=== PATIENT | male | born 1940 | race American Indian/Alaskan Native ===

== ENCOUNTER 2016-12-25 12:38 | Inpatient (IN) | payer MEDICARE ==
--- NOTE | 2016-12-25 13:47 | Emergency Department Report ---
Entered by RYAN CHARLES, acting as scribe for LOLA NASH PA. Chief Complaint: Skin/Abscess/Foreign Body Stated Complaint: FACIAL SWELLING Time Seen by Provider: 12/25/16 13:35 - HPI History of Present Illness: 76 y/o male presents c/o leg and facial swelling that has been going out for about a week. Pt denies chest pain or abd pain. He notes he has been seen here before for similar symptoms. Pt also notes he has not been following up with his IM doctor or taking his medication because he is out of it. - ROS Review of Systems: as noted in HPI - Exam Vital Signs: Vital Signs 12/25/16 13:21 Temperature 97.4 F L Pulse Rate 60 Respiratory 18 Rate Blood Pressure 106/71 O2 Sat by Pulse 100 Oximetry Physical Exam: General: 76 y/o male in no acute distress. CV: Regular rate and rhythm. Lungs: Clear to auscultation bilaterally. Abdomen: No tenderness to palpation. No guarding or rebound tenderness. MSE screening note: Focused history and physical exam performed. Due to findings the following was ordered: ED Disposition for MSE Condition: Stable This documentation as recorded by the scribe,RYAN CHARLES,accurately reflects the service I personally performed and the decisions made by ,LOLA NASH PA.
[2016-12-25 14:19] LABS: Basophils % (Auto) 0.3 % (0.0-1.8); Eosinophils % (Auto) 1.4 % (0.0-4.3); Hematocrit 30.6 % (35.5-45.6); Hemoglobin 9.9 gm/dl (11.8-15.2); Mean Corpuscular HGB Conc 32 % (32-34); Mean Corpuscular Hemoglobin 29 pg (28-32); Mean Corpuscular Volume 89 fl (84-94); Platelet Count 129 K/mm3 (140-440); Red Blood Count 3.46 M/mm3 (3.65-5.03); Red Cell Distribution Width 16.7 % (13.2-15.2); White Blood Count 4.7 K/mm3 (4.5-11.0)
[2016-12-25 14:29] LABS: BUN/Creatinine Ratio 12.63; Calcium 8.9 mg/dL (8.4-10.2); Chloride 109.1 mmol/L (98-107); Potassium 4.5 mmol/L (3.6-5.0)
[2016-12-25 14:30] LABS: INR 1.32 (0.87-1.13)
[2016-12-25 14:31] LABS: Partial Thromboplastin Time 34.7 Sec. (24.2-36.6)
--- NOTE | 2016-12-25 19:54 | Emergency Department Report ---
HPI - General Chief Complaint: Skin/Abscess/Foreign Body Time Seen by Provider: 12/25/16 13:35 - HPI HPI: This is a 76-year-old Afro-[place]aur[place] male presents to the emergency department with his daughter with complaint of swelling "everywhere." The patient specifically has been having some left-sided facial swelling as well as swelling to the lower extremities. Patient says that he has a history of this has been [facility] before for this and they "kept him in the hospital." His primary care doctor is Dr. samantha Rebolledo. He has a past medical history of CHF, CVA with left-sided weakness, non-insulin diabetes, GERD, MA, hypertension , high cholesterol. No recent travel. No sick contacts at home. He lives with his daughter at home and they have home nursing care 7 days a week. ED Past Medical Hx - Past Medical History Previous Medical History?: Yes Hx Hypertension: Yes Hx CVA: Yes (L sided weakness) Hx Heart Attack/AMI: Yes Hx Congestive Heart Failure: Yes Hx Diabetes: Yes Hx GERD: Yes Hx Renal Disease: Yes Hx HIV: No Additional medical history: high cholesterol - Surgical History Past Surgical History?: Yes Hx Pacemaker: Yes (Has L pacemaker.) - Social History Smoking Status: Former Smoker Substance Use Type: None - Medications Home Medications: Home Medications Medication Instructions Recorded Confirmed Last Taken Type Omeprazole [PriLOSEC] 20 mg PO DAILY 07/12/14 12/25/16 Unknown History Saxagliptin HCl [Onglyza] 5 mg PO DAILY 07/12/14 12/25/16 Unknown History Acetaminophen [Acetaminophen TAB] 650 mg PO Q4H PRN #30 tablet 07/22/16 Unknown Rx Aspirin [Adult Low Dose Aspirin EC] 81 mg PO DAILY #30 tablet. 07/22/16 Unknown Rx Gabapentin [Neurontin] 300 mg PO BID #30 07/22/16 12/25/16 Unknown Rx Bumetanide 2 mg PO DAILY 12/25/16 12/25/16 Unknown History ED Review of Systems ROS: Stated complaint: FACIAL SWELLING Other details as noted in HPI Comment: All other systems reviewed and negative Constitutional: denies: chills, fever Eyes: denies: eye pain, eye discharge, vision change ENT: denies: ear pain, throat pain Respiratory: shortness of breath. denies: cough Cardiovascular: edema. denies: chest pain Gastrointestinal: denies: abdominal pain, nausea, diarrhea Genitourinary: denies: urgency, dysuria Musculoskeletal: denies: back pain, joint swelling, arthralgia Skin: denies: rash, lesions Neurological: denies: headache, weakness, paresthesias Physical Exam - Physical Exam Vital Signs: Vital Signs 12/25/16 04 13:21 17:31 Temperature 97.4 F L 97.8 F Pulse Rate 60 75 Respiratory 18 Rate Blood Pressure 106/71 Blood Pressure 102/67 [Left] O2 Sat by Pulse 100 98 Oximetry Physical Exam: GENERAL: The patient is well-developed well-nourished. HEENT: Normocephalic. Atraumatic. Extraocular motions are intact. Patient has moist mucous membranes. Pupils equal reactive to light bilaterally. NECK: Supple. Trachea is midline. CHEST/LUNGS: Coarse breath sounds at the chest. There is tachypnea but no accessory muscle use. There is no respiratory distress noted. HEART/CARDIOVASCULAR: Regular. There is no tachycardia. There is no gallop rub or murmur. ABDOMEN: Abdomen is soft, nontender. Patient has normal bowel sounds. There is no abdominal distention. SKIN: Patient has 1-2+ pitting edema of the bilateral lower extremities. There is some swelling to the left side of the patient's face. No skin color change, warmth, weeping, bleeding or drainage. NEURO: The patient is awake, alert, and oriented. The patient is cooperative. Chronic left-sided weakness. The patient has normal speech. MUSCULOSKELETAL: There is no tenderness or deformity. Radial pulse +2 over 4 bilaterally. There is no evidence of acute injury. ED Course Vital Signs 12/25/16 12/25/16 13:21 17:31 Temperature 97.4 F L 97.8 F Pulse Rate 60 75 Respiratory 18 Rate Blood Pressure 106/71 Blood Pressure 102/67 [Left] O2 Sat by Pulse 100 98 Oximetry ED Medical Decision Making - Lab Data Result diagrams: 12/25/16 13:51 12/25/16 13:51 - EKG Data -: EKG Interpreted by Ms EKG shows normal: axis, intervals, QRS complexes (low-voltage QRS, Q waves to the septal and inferior leads), ST-T waves Rate: normal - EKG Data When compared to previous EKG there are: previous EKG unavailable Interpretation: other (electronic atrial pacemaker, left axis deviation, low voltage QRS, Q waves to the inferior and anterior leads) - Radiology Data Radiology results: image reviewed interpreted by me: Chest x-ray shows mild to moderate cardiomegaly. There is some pulmonary vascular congestion. There is a radiopaque circular lesion to the right lower chest that appears consistent with previous imaging. - Medical Decision Making 76-year-old male presents with complaint of some swelling to the lower extremities and the face or as he says "everywhere." Patient has a BNP of greater than 17,000. Chest x-ray shows some vascular congestion. This all appears consistent with CHF. Given some IV Lasix and will be admitted to hospital for further evaluation and treatment. Accepted for admission by the hospitalist, Dr. Pickens. - Differential Diagnosis CHF, venous stasis, cellulitis Critical Care Time: No Critical care attestation.: If time is entered above; I have spent that time in minutes in the direct care of this critically ill patient, excluding procedure time. ED Disposition Clinical Impression: Pulmonary edema cardiac cause, Renal insufficiency Dyspnea Qualifiers: Dyspnea type: shortness of breath Qualified Code(s): R06.02 - Shortness of breath Anemia Qualifiers: Anemia type: unspecified type Qualified Code(s): D64.9 - Anemia, unspecified Disposition: OP ADMITTED IP TO THIS HOSP Is pt being admited?: Yes Condition: Stable
[2016-12-25] MEDS ORDERED: LASIX IV ONE (20:22)
[2016-12-25] MEDS ORDERED: DULCOLAX PR PRN (20:33)
[2016-12-25] MEDS ORDERED: MILK OF MAGNESIA PO PRN (20:33)
[2016-12-25] MEDS ORDERED: ZOFRAN IV PRN (20:33)
[2016-12-25] MEDS ORDERED: TYLENOL PO PRN ×2 (20:33→20:35)
--- NOTE | 2016-12-25 20:38 | History and Physical Report ---
History of Present Illness Chief complaint: I feel swollen all over History of present illness: 76 YO Male with HTN, CHF Systolic Dysfunction (EF 10%), SC, DM, GERD, CKD, HLD presents to ED for evaluation. Pt states that he feels swollen all over. Pt states that he has been experiencing symptoms for the past week, with worsening symptoms the past 24 hours. Pt denies fever, chills, CP, Palpitations, NVD, BRBPR, hemoptysis, syncope, prolonged travel/immobility, individual/family history of DVT/PE, productive cough, or recent ill contacts. Pt acknowledges orthopnea, PND. Past History Past Medical History: acute SC, diabetes, GERD, heart failure, hypertension, hyperlipidemia, stroke Past Surgical History: Other (pacemaker placement) Social history: , lives with family. denies: smoking, alcohol abuse, prescription drug abuse Family history: diabetes, hypertension Medications and Allergies Allergies Allergy/AdvReac Type Severity Reaction Status Date / Time No Known Allergies Allergy Unverified 07/12/14 15:48 Home Medications Medication Instructions Recorded Confirmed Last Taken Type Omeprazole [PriLOSEC] 20 mg PO DAILY 07/12/14 12/25/16 Unknown History Saxagliptin HCl [Onglyza] 5 mg PO DAILY 07/12/14 12/25/16 Unknown History Acetaminophen [Acetaminophen TAB] 650 mg PO Q4H PRN #30 tablet 07/22/16 Unknown Rx Aspirin [Adult Low Dose Aspirin EC] 81 mg PO DAILY #30 tablet. 07/22/16 Unknown Rx Gabapentin [Neurontin] 300 mg PO BID #30 07/22/16 12/25/16 Unknown Rx Bumetanide 2 mg PO DAILY 12/25/16 12/25/16 Unknown History Active Meds: Active Medications Acetaminophen (Tylenol) 650 mg PO Q4H PRN PRN Reason: Pain MILD(1-3)/Fever >100.5/PICKERING Acetaminophen (Tylenol) 650 mg PO Q4H PRN PRN Reason: Pain MILD(1-3)/Fever >100.5/PICKERING Albuterol/Ipratropium (Duoneb 0.5 Mg-3 Mg/3 Ml Soln) 1 ampul IH Q6HRT CESILIA Aspirin (Halfprin Ec) 81 mg PO DAILY CESILIA Bisacodyl (Dulcolax) 10 mg IN QDAY PRN PRN Reason: Constipation unrelieved by MOM Carvedilol (Coreg) 3.125 mg PO BID CESILIA Clopidogrel Bisulfate (Plavix) 75 mg PO QDAY CESILIA Furosemide (Lasix) 20 mg IV BID@0600,1800 CES[place] Gabapentin (Neurontin) 300 mg PO BID CESILIA Magnesium Hydroxide (Milk Of Magnesia) 30 ml PO Q4H PRN PRN Reason: Constipation Miscellaneous Medication (Omeprazole [Prilosec]) 20 mg PO DAILY CESILIA Miscellaneous Medication (Rosuvastatin) 40 mg PO QHS CESILIA Ondansetron HCl (Zofran) 4 mg IV Q8H PRN PRN Reason: N/V unrelieved by Reglan Review of Systems All systems: negative Constitutional: other (swelling) Exam - Constitutional Vitals: Temp Pulse Resp BP Pulse Ox 97.8 F 75 18 102/67 98 12/25/16 17:31 12/25/16 17:31 12/25/16 13:21 12/25/16 17:31 12/25/16 17:31 General appearance: Present: mild distress - EENT Eyes: Present: PERRL ENT: hearing intact, clear oral mucosa - Neck Neck: Present: supple, normal ROM - Respiratory Respiratory effort: normal Respiratory: bilateral: diminished - Cardiovascular Heart Sounds: Present: S1 & S2. Absent: rub, click - Extremities Extremities: pulses symmetrical, No edema Extremity abnormal: edema Peripheral Pulses: within normal limits - Abdominal General gastrointestinal: Present: soft, non-tender, non-distended, normal bowel sounds Male genitourinary: Present: normal - Integumentary Integumentary: Present: clear, warm, dry - Musculoskeletal Musculoskeletal: strength equal bilaterally, left sided weakness - Psychiatric Psychiatric: appropriate mood/affect, intact judgment & insight - Neurologic Neurologic: CNII-XII intact, moves all extremities Results - Labs CBC & Chem 7: 12/25/16 13:51 12/25/16 13:51 Labs: Abnormal lab results 12/25/16 12/25/16 12/25/16 Range/Units 13:51 13:51 13:51 RBC 3.46 L (3.65-5.03) M/mm3 Hgb 9.9 L (11.8-15.2) gm/dl Hct 30.6 L (35.5-45.6) % RDW 16.7 H (13.2-15.2) % Plt Count 129 L (140-440) K/mm3 [place] % (Auto) 14.8 H (0.0-7.3) % Lymph # 0.7 L (1.2-5.4) K/mm3 PT (12.2-14.9) Sec. INR (0.87-1.13) Chloride 109.1 H (98-107) mmol/L Carbon Dioxide 19 L (22-30) mmol/L BUN 24 H (9-20) mg/dL Creatinine 1.9 H (0.8-1.5) mg/dL Glucose 108 H (75-100) mg/dL NT-Pro-B Natriuret Pep 82643 H (0-900) pg/mL 12/25/16 Range/Units 13:51 RBC (3.65-5.03) M/mm3 Hgb (11.8-15.2) gm/dl Hct (35.5-45.6) % RDW (13.2-15.2) % Plt Count (140-440) K/mm3 [place] % (Auto) (0.0-7.3) % Lymph # (1.2-5.4) K/mm3 PT 16.3 H (12.2-14.9) Sec. INR 1.32 H (0.87-1.13) Chloride (98-107) mmol/L Carbon Dioxide (22-30) mmol/L BUN (9-20) mg/dL Creatinine (0.8-1.5) mg/dL Glucose (75-100) mg/dL NT-Pro-B Natriuret Pep (0-900) pg/mL Assessment and Plan - Patient Problems (1) Congestive heart failure (CHF) Current Visit: No Status: Acute Qualifiers: Congestive heart failure type: systolic Congestive heart failure chronicity : C Plan to address problem: End Stage CHF: CHF protocol: Fluid restriction, daily weight, diuresis, monitor uop q shift, resume home medication, 2 gram sodium diet, (2) Hyperchloremic metabolic acidosis Current Visit: Yes Status: Acute Plan to address problem: Treat chf, repeat bmp in am (3) ARF (acute renal failure) Current Visit: Yes Status: Acute Qualifiers: Acute renal failure type: A Plan to address problem: Free water fluid intake, monitor uop q shift, (4) Metabolic syndrome Current Visit: Yes Status: Acute Plan to address problem: Pt counseled, continue current therapy (5) DVT prophylaxis Current Visit: No Status: Acute
[2016-12-25] MEDS ORDERED: NON-FORMULARY (Rosuvastatin 40 MG) PO SCH (22:00)
[2016-12-25] MEDS ORDERED: NEURONTIN ONE (22:59)
[2016-12-25] MEDS ORDERED: COREG ONE (22:59)
[2016-12-25] MEDS: COREG PO SCH (23:07)
[2016-12-25] MEDS: NEURONTIN PO SCH (23:07)
[2016-12-26 00:47] LABS: Bacteria,Urine 2+ /HPF (Negative); Bilirubin,Urine NEG (Negative); Blood,Urine SM (Negative); Ketones,Urine NEG (Negative); Leukocyte Esterase,Urine MOD (Negative); Mucus,Urine FEW /HPF; Nitrite,Urine NEG (Negative); Protein,Urine <15 mg/dL mg/dL (Negative); Urobilinogen,Urine < 2.0 mg/dL (<2.0)
[2016-12-26] MEDS: DUONEB 0.5 MG-3 MG/3 ML SOLN IH SCH ×4 (01:37→20:28)
[2016-12-26] MEDS: LASIX IV SCH ×2 (06:21→18:01)
[2016-12-26] MEDS ORDERED: NON-FORMULARY (Omeprazole [Prilosec] 20 MG) PO SCH (10:00)
--- NOTE | 2016-12-26 10:03 | XRay Report ---
AP CHEST :12/25/16 19:42 CLINICAL: Shortness of breath. COMPARISON:07/15/16 FINDINGS: Stable cardiomegaly with pacer leads in heart. Mild central vascular congestion. The pulmonary vessels are more distinct than on the prior exam. Widening in the right pleural space and blunting right costophrenic angle unchanged compared to the previous exam. A soft tissue opacity in the right midlung is slightly less prominent than on the prior exam and may be a pseudo-tumor produced by fluid in the minor fissure. The a left lung is clear. IMPRESSION: Cardiomegaly and pulmonary venous hypertension. No pulmonary edema.Chronic pleural effusion and pseudotumor versus mass in the right midlung. Consider CT Chest.
[2016-12-26] MEDS: PLAVIX PO SCH (10:55)
[2016-12-26] MEDS: PROTONIX PO SCH (10:55)
[2016-12-26] MEDS: NEURONTIN PO SCH ×2 (10:55→22:03)
[2016-12-26] MEDS: LEVAQUIN 500MG/100ML 500 MG/100 ML BAG IV SCH (10:55)
[2016-12-26] MEDS: COREG PO SCH ×2 (10:55→22:00)
[2016-12-26] MEDS: HALFPRIN EC PO SCH (10:55)
--- NOTE | 2016-12-26 15:51 | Progress Note ---
Hospitalist Physical - Constitutional Vitals: Temp Pulse Resp BP Pulse Ox 98.3 F 74 18 124/78 99 12/26/16 11:34 12/26/16 14:12 12/26/16 14:12 12/26/16 11:34 12/26/16 11:34 General appearance: Present: mild distress Results - Labs CBC & Chem 7: 12/25/16 13:51 12/25/16 13:51 Labs: Laboratory Last Values WBC 4.7 K/mm3 (4.5-11.0) 12/25/16 13:51 RBC 3.46 M/mm3 (3.65-5.03) L 12/25/16 13:51 Hgb 9.9 gm/dl (11.8-15.2) L 12/25/16 13:51 Hct 30.6 % (35.5-45.6) L 12/25/16 13:51 MCV 89 fl (84-94) 12/25/16 13:51 MCH 29 pg (28-32) 12/25/16 13:51 MCHC 32 % (32-34) 12/25/16 13:51 RDW 16.7 % (13.2-15.2) H 12/25/16 13:51 Plt Count 129 K/mm3 (140-440) L 12/25/16 13:51 Lymph % (Auto) 15.7 % (13.4-35.0) 12/25/16 13:51 [place] % (Auto) 14.8 % (0.0-7.3) H 12/25/16 13:51 Eos % (Auto) 1.4 % (0.0-4.3) 12/25/16 13:51 Baso % (Auto) 0.3 % (0.0-1.8) 12/25/16 13:51 Lymph # 0.7 K/mm3 (1.2-5.4) L 12/25/16 13:51 [place] # 0.7 K/mm3 (0.0-0.8) 12/25/16 13:51 Eos # 0.1 K/mm3 (0.0-0.4) 12/25/16 13:51 Baso # 0.0 K/mm3 (0.0-0.1) 12/25/16 13:51 Seg Neutrophils % 67.8 % (40.0-70.0) 12/25/16 13:51 Seg Neutrophils # 3.2 K/mm3 (1.8-7.7) 12/25/16 13:51 PT 16.3 Sec. (12.2-14.9) H 12/25/16 13:51 INR 1.32 (0.87-1.13) H 12/25/16 13:51 APTT 34.7 Sec. (24.2-36.6) 12/25/16 13:51 Sodium 144 mmol/L (137-145) 12/25/16 13:51 Potassium 4.5 mmol/L (3.6-5.0) 12/25/16 13:51 Chloride 109.1 mmol/L (98-107) H 12/25/16 13:51 Carbon Dioxide 19 mmol/L (22-30) L 12/25/16 13:51 Anion Gap 20 mmol/L 12/25/16 13:51 BUN 24 mg/dL (9-20) H 12/25/16 13:51 Creatinine 1.9 mg/dL (0.8-1.5) H 12/25/16 13:51 Estimated GFR 42 ml/min 12/25/16 13:51 BUN/Creatinine Ratio 12.63 % 12/25/16 13:51 Glucose 108 mg/dL (75-100) H 12/25/16 13:51 Calcium 8.9 mg/dL (8.4-10.2) 12/25/16 13:51 NT-Pro-B Natriuret Pep 17958 pg/mL (0-900) H 12/25/16 13:51 Urine Color Yellow (Yellow) 12/26/16 00:01 Urine Turbidity Clear (Clear) 12/26/16 00:01 Urine pH 5.0 (5.0-7.0) 12/26/16 00:01 Ur Specific [place] 1.010 (1.003-1.030) 12/26/16 00:01 Urine Protein <15 mg/dl mg/dL (Negative) 12/26/16 00:01 Urine Glucose (UA) Neg mg/dL (Negative) 12/26/16 00:01 Urine Ketones Neg mg/dL (Negative) 12/26/16 00:01 Urine Blood Sm (Negative) 12/26/16 00:01 Urine Nitrite Neg (Negative) 12/26/16 00:01 Urine Bilirubin Neg (Negative) 12/26/16 00:01 Urine Urobilinogen < 2.0 mg/dL (<2.0) 12/26/16 00:01 Ur Leukocyte Esterase Mod (Negative) 12/26/16 00:01 Urine WBC (Auto) 17.0 /HPF (0.0-6.0) H 12/26/16 00:01 Urine RBC (Auto) 2.0 /HPF (0.0-6.0) 12/26/16 00:01 Urine Bacteria (Auto) 2+ /HPF (Negative) 12/26/16 00:01 Urine Mucus Few /HPF 12/26/16 00:01
[2016-12-27] MEDS: LASIX IV SCH (06:10)
[2016-12-27 06:46] LABS: Hematocrit 28.5 % (35.5-45.6); Hemoglobin 9.2 gm/dl (11.8-15.2); Mean Corpuscular HGB Conc 32 % (32-34); Mean Corpuscular Hemoglobin 28 pg (28-32); Mean Corpuscular Volume 88 fl (84-94); Platelet Count 140 K/mm3 (140-440); Red Blood Count 3.24 M/mm3 (3.65-5.03); Red Cell Distribution Width 16.7 % (13.2-15.2); White Blood Count 3.9 K/mm3 (4.5-11.0)
[2016-12-27 07:02] LABS: BUN/Creatinine Ratio 13.8; Calcium 8.8 mg/dL (8.4-10.2); Potassium 4.2 mmol/L (3.6-5.0)
[2016-12-27] MEDS: DUONEB 0.5 MG-3 MG/3 ML SOLN IH SCH ×2 (08:30→14:14)
--- NOTE | 2016-12-27 09:26 | Admit Criteria Form ---
Admission Criteria Documentation: HEART FAILURE Clinical Indications for Admission to Inpatient Care (Place 'X' for any and all applicable criteria): Admission is indicated by ANY ONE of the following(1)(2)(3)(4): [ ]I. Severe electrolyte abnormalities requiring inpatient care(9) [ ]II. Hemodynamic instability [ ]III. Anasarca [ ]IV. Acute cardiac ischemia causing or associated with failure (Also use Angina or Myocardial Infarction as appropriate) [ ]V. Cardiac arrhythmias of immediate concern [ ]. Precipitating cause for acute decompensation (eg, pneumonia, pulmonary embolism) requires inpatient care [X ]VII. Pulmonary edema that is very severe (eg, mechanical ventilation needed , imminent or likely, need for 100% oxygen to keep oxygen saturation above 90%) [X ]VIII. Inpatient admission required rather than observation care (Also use Heart Failure: Observation Care as appropriate) because of ANY ONE of the following: [ ]a) Pulmonary edema that is severe or worsening as indicated by ALL of the following: [ ]i) New need for oxygen therapy to keep oxygen saturation above 90% (or increased FiO2 need from baseline) [ ]ii) Has not improved sufficiently with emergency department or observation care IV diuretics or other heart failure treatments[C] [ ]b) Cognitive impairment that is severe or persistent [ ]c) Increased creatinine (new on laboratory test) with reduction of more than 50% in estimated glomerular filtration rate from baseline. [ ]d) Acute renal insufficiency (progressively (ongoing) rising creatinine (known from past laboratory test) with reduction of more than 25% in estimated glomerular filtration rate from baseline) [ ]e) Acute peripheral ischemia (eg, pulseless, cool, mottled, or cyanotic extremity) [X ]f) Acute renal failure [ ]g) Supplemental O2 or respiratory treatment for >24 hr that are performable only in acute inpatient setting [ ]h) Pulmonary artery catheter monitoring [ ]i) Other condition, treatment or monitoring requiring inpatient admission [ ]IX. Contraindications and/or Inappropriate clinical situations for Observational Care in patients with Heart Failure, when ANY ONE of the following is required: [ ]a) Patient with High risk of cardiac embolism (e.g, patients with previous cardiac embolism, LVEF < 40%, age >75 and patients with prosthetic valve) 18 [ ]b) Patient with Moderate risk including DM patient, CAD and patient aged 65-75 [ ]c) Patient with any change in cardiac biomarker especially troponin should be managed as high risk in an inpatient setting 19 [ ]d) Physician judgement irrespective of ECG and other diagnostic findings 20 [ ]e) Patients with hyponatremia have high risk for mortality and require more extensive care and length of stay 21 [ ]f) Need for large volume diuresis 21 [ ]g) Presence of renal insufficiency or hypotension limiting speed of diuresis 21 [ ]h) Acute cardiac Ischemia in the elderly 21 [ ]i) Patients with a 30 day risk of mortality based on a multidimensional prognostic index (MPI) [J,]21 [X ]X. General contraindications and/or Inappropriate clinical situations for Observational Care in patients with Heart Failure, when ANY ONE of the following is required: [X ]a) Prediction of prolongation of LOS based on ANY ONE of the following may be considered as a contraindication for observational care 2, 3, 4, 5, 6, 7, 8 , 9, 10, 11 [ X]i) Age > 65 yrs. [ ]ii) Patient arriving by ambulance [ ]iii) Patient with high acuity [ ]iv) Patient requiring vital sign monitoring [ ]v) Patient on IV medication [ ]b) Systolic blood pressures 180mmHg 3,12 [ ]c) Patient with altered mental status including delirium and other alteration of consciousness, (3) [ ]d) Patient whose discharge disposition will be to a usp home or rehabilitation home should not be managed in Emergency Department Observation Unit. CMS rule requires 3 days hospital stay before such placement.3,13 [ ]e) Patient with failure to thrive due to broad array of etiologies 3,16,17 [ ]f) Inability to ambulate 3,14 Extended stay beyond goal length of stay may be needed for(1)(3)(21)(25): [ ]a) Cardiac ischemia, confirmed or suspected as precipitant [ ]b) Cardiogenic shock or refractory pulmonary edema [ ]c) Acute kidney injury or renal failure [ ]d) Respiratory failure (eg, need for noninvasive or invasive mechanical ventilation) (23) [ ]e) Concomitant pneumonia or significant electrolyte abnormality (eg, severe hyponatremia) [ ]f) Newly diagnosed (new onset) atrial fibrillation [ ]g) Stage IV chronic kidney disease (estimated glomerular filtration rate of less than 30 mL/min/1.73m2 (0.50 mL/sec/1.73m2), and not previously on chronic dialysis The original [facility] content created by [facility] has been revised. The portions of the content which have been revised are identified through the use of italic text or in bold, and [facility] has neither reviewed nor approved the modified material. All other unmodified content is copyright [facility]. Please see references footnoted in the original [facility] edition 2016 Admission Criteria Met: Yes
--- NOTE | 2016-12-27 09:30 | Discharge Summary ---
Providers - Providers Date of Admission: 12/25/16 20:33 Date of discharge: 12/27/16 Attending physician: KATLIN DURAN Primary care physician: ANGELIQUE CURRY MD Hospitalization Condition: Good Disposition: DISCHARGED TO HOME OR SELFCARE - Discharge Diagnoses (1) Acute on chronic systolic CHF (congestive heart failure) Status: Acute Exam - Constitutional Vitals: Temp Pulse Resp BP Pulse Ox 97.8 F 67 18 108/68 96 12/27/16 06:01 12/27/16 08:47 12/27/16 08:47 12/27/16 06:01 12/27/16 08:34 Plan Activity: advance as tolerated Diet: low fat, low cholesterol, low salt, diabetic Additional Instructions: 1.Follow up with PCP in 1 week. 2.Follow up with cardiology in 1 week Follow up with: PRIMARY CARE, [Primary Care Provider] - 3-5 Days Prescriptions: Rosuvastatin Calcium [Crestor] 40 mg PO QHS #30 tablet
[2016-12-27] MEDS: LEVAQUIN 500MG/100ML 500 MG/100 ML BAG IV SCH (10:42)
[2016-12-27] MEDS: PROTONIX PO SCH (10:43)
[2016-12-27] MEDS: COREG PO SCH (10:44)
[2016-12-27] MEDS: HALFPRIN EC PO SCH (10:44)
[2016-12-27] MEDS: PLAVIX PO SCH (10:44)
[2016-12-27] MEDS: NEURONTIN PO SCH (10:44)
[2016-12-27 19:07] VITALS: BP 100/69
== END 2016-12-27 14:36 | disposition home or self-care (01) | DRG 291 ==
LOC: ED 12:38 → 4A 20:33
PROVIDERS: ADMIT Internal Medicine; ATTEND Internal Medicine
DX: I13.0 Hypertensive heart and chronic kidney disease with heart failure and stage 1 through stage 4 chronic kidney disease, or unspecified chronic kidney disease (principal); I50.23 Acute on chronic systolic (congestive) heart failure; N17.9 Acute kidney failure, unspecified; E87.2 Acidosis; I69.354 Hemiplegia and hemiparesis following cerebral infarction affecting left non-dominant side; E88.81 Metabolic syndrome and other insulin resistance; K21.9 Gastro-esophageal reflux disease without esophagitis; D64.9 Anemia, unspecified; E11.22 Type 2 diabetes mellitus with diabetic chronic kidney disease; N18.9 Chronic kidney disease, unspecified; E78.5 Hyperlipidemia, unspecified; I25.2 Old myocardial infarction; Z82.49 Family history of ischemic heart disease and other diseases of the circulatory system; Z83.3 Family history of diabetes mellitus; Z95.0 Presence of cardiac pacemaker; Z87.891 Personal history of nicotine dependence; Z79.82 Long term (current) use of aspirin
CPT/HCPCS: 36415; 71010; 80048; 81001; 82962; 83880; 85025; 85027; 85610; 85730; 93005; 93010; 94640; 96374; A9270-GY; J1940; J1956

== ENCOUNTER 2019-11-19 11:07 | Inpatient (IN) | payer MEDICARE ==
[2019-11-19] MEDS ORDERED: SODIUM CHLORIDE 0.9% 500 ML 500 ML IV ONE (11:36)
--- NOTE | 2019-11-19 11:41 | Emergency Department Report ---
HPI - General Chief Complaint: Weakness Time Seen by Provider: 11/19/19 11:24 - HPI HPI: 79-year-old -[place] male presents to the emergency department via EMS from his [employer] daycare with a complaint of the patient having a cough, fever, and acting more fatigued than usual. He has a past medical history that includes CVA with left-sided hemiparesis, coronary artery disease with previous IA, diabetes, CHF, hypertension, CKD. The patient is currently AAO x1 and is therefore a poor historian. ED Past Medical Hx - Past Medical History Hx Hypertension: Yes Hx CVA: Yes (L sided weakness) Hx Heart Attack/AMI: Yes Hx Congestive Heart Failure: Yes Hx Diabetes: Yes Hx GERD: Yes Hx Renal Disease: Yes Hx HIV: No Additional medical history: high cholesterol - Surgical History Hx Pacemaker: Yes (Has L pacemaker.) - Social History Smoking Status: Unknown if ever smoked - Medications Home Medications: Home Medications Medication Instructions Recorded Confirmed Last Taken Type Aspirin [Adult Low Dose Aspirin EC] 81 mg PO DAILY #30 tablet. 07/22/16 11/19/19 Unknown Rx Gabapentin 300 mg PO BID #30 07/22/16 11/19/19 Unknown Rx Bumetanide [Bumetanide 2 mg tab] 2 mg PO DAILY 12/25/16 11/19/19 Unknown History Clopidogrel [Plavix] 75 mg PO QDAY tablet 12/27/16 11/19/19 Unknown Rx Rosuvastatin Calcium 20 mg PO DAILY 11/19/19 11/19/19 Unknown History Saxagliptin HCl [Onglyza] 5 mg PO DAILY 11/19/19 11/19/19 Unknown History carvediloL [Coreg] 3.125 mg PO BID 11/19/19 11/19/19 Unknown History ED Review of Systems ROS: Stated complaint: LETHARGIC/COUGH Other details as noted in HPI Comment: Unobtainable due to pts medical conditions Physical Exam - Physical Exam Vital Signs: Vital Signs 11/19/19 11:31 Temperature 100.8 F H Pulse Rate 75 Respiratory 22 Rate Blood Pressure 89/52 O2 Sat by Pulse 93 Oximetry Physical Exam: GENERAL: The patient is well-developed well-nourished. HENT: Normocephalic. Atraumatic. Patient has moist mucous membranes. EYES: Extraocular motions are intact. NECK: Supple. Trachea is midline. CHEST/LUNGS: Clear to auscultation. There is no respiratory distress noted. HEART/CARDIOVASCULAR: Regular. There is no tachycardia. There is no murmur. ABDOMEN: Abdomen is soft, nontender. Patient has normal bowel sounds. There is no abdominal distention. SKIN: Skin is warm and dry. NEURO: Patient is very sleepy but is arousable. Once awake he is AAO x1 to person but not place or time. Patient will respond to some questions and follow some commands. Withdraws from painful stimuli. MUSCULOSKELETAL: There is no tenderness or deformity. There is no evidence of acute injury. ED Course Vital Signs 11/19/19 11:31 Temperature 100.8 F H Pulse Rate 75 Respiratory 22 Rate Blood Pressure 89/52 O2 Sat by Pulse 93 Oximetry - Central Line Placement Right IJ Consent Obtained: verbal consent (From the patient's daughter), written consent Time Out Performed: Yes Patient Placed on Monitor/Pulse Ox: Yes MD Prep: mask, gown, gloves Central Line Prep: Chlorhexidine scrub Local Anesthesia Used: Lidocaine 1% Amount of Anesthesia Used (mls): 2 Ultrasound Used for Placement: Yes Central Line Lumen Inserted: triple Bloods Obtained for Lab: Yes Central Line Position: good blood return, all ports aspirated, flus, sutured in place with nyl Dressing Applied: Tegaderm, sterile gauze/tape Post Procedure X-Ray: tip of catheter in good p Patient Tolerated Procedure: well Complications: none ED Medical Decision Making - Lab Data Result diagrams: 11/19/19 13:47 11/19/19 12:17 - EKG Data -: EKG Interpreted by Me - EKG Data When compared to previous EKG there are: no significant change (02/22/17) Interpretation: other (Atrial paced, left axis deviation, PVCs, Q waves to the inferior, septal and anterior leads, flattening of T waves to the lateral leads) - Radiology Data Radiology results: report reviewed CT BRAIN: 11/19/2019 INDICATION / CLINICAL INFORMATION: MAIN: AMS HX OF CVA LEFT SIDED WEAKNESS. COMPARISON: None available. FINDINGS: BRAIN/INTRACRANIAL STRUCTURES: Unenhanced CT images of the brain were obtained. No previous studies are available here for comparison. There is a large area of encephalomalacia involving the right frontal and parietal lobes, consistent with remote right MCA and MARLENE territory infarct. Underlying diffuse age-related atrophic changes are present. There is no CT evidence of acute ischemic injury, hemorrhage, or mass. There are no abnormal extra-axial fluid collections. Atherosclerotic vascular calcifications are present in the distal internal carotid arteries and vertebral arteries. EXTRACRANIAL STRUCTURES: Unremarkable. IMPRESSION: No evidence of acute abnormality. Extensive chronic ischemic injury. CHEST 1 VIEW INDICATION / CLINICAL INFORMATION: Cough. COMPARISON: 02/23/2017 FINDINGS: SUPPORT DEVICES: Pacemaker appears unchanged HEART / MEDIASTINUM: There is prominence of the cardiac silhouette LUNGS / PLEURA: There is basilar airspace disease on the left. There is mild venous congestion. There is blunting of the costophrenic angles characteristic of small amount of pleural fluid or pleural thickening.. No pneumothorax. ADDITIONAL FINDINGS: No significant additional findings. - Medical Decision Making This patient was sent in from his adult daycare with the complaint of some co ughing, increased fatigue or lethargy and the patient presented with a low-grade fever and some hypotension. Chest x-ray showed some basilar airspace disease. Urinalysis shows a urinary tract infection. The patient was a code sepsis and was empirically started on Rocephin. He received a total of about 3 L of IV fluid resuscitation but still continues to have some hypotension. For this reason a central line catheter was placed so the patient could be started on pressors. The risks and rewards and the procedure were discussed with the patient's granddaughter, who is at bedside, as well as the patient's daughter, over the phone, and I was given both written and verbal permission. Patient's labs showed some renal insufficiency, initial lactic acidosis. Blood and urine cultures have been sent. The patient will be admitted to the hospital for further evaluation and was accepted for admission by the hospitalist, Dr. Pickens. - Differential Diagnosis Pneumonia, UTI, sepsis, septic shock Critical Care Time: Yes Critical care time in (mins) excluding proc time.: 35 Critical care attestation.: If time is entered above; I have spent that time in minutes in the direct care of this critically ill patient, excluding procedure time. Due to the immediate potential for life-threatening deterioration due to underlying pulmonary and cardiovascular conditions, I spent 35 minutes of critical care time with the patient. Critical care time includes the patient's initial evaluation, multiple re-evaluations, ordering and interpretation of labs and imaging, discussion with the patient's family, IV fluid resuscitation. This does not include the time spent doing the central line procedure. Critical Care Time: 35 minutes ED Disposition Clinical Impression: Renal insufficiency Sepsis Qualifiers: Sepsis type: sepsis due to unspecified organism Sepsis acute organ dysfunction status: unspecified Qualified Code(s): A41.9 - Sepsis, unspecified organism UTI (urinary tract infection) Qualifiers: Urinary tract infection type: acute cystitis Hematuria presence: without hematuria Qualified Code(s): N30.00 - Acute cystitis without hematuria Pneumonia Qualifiers: Pneumonia type: due to unspecified organism Laterality: bilateral Lung location: lower lobe of lung Qualified Code(s): J18.9 - Pneumonia, unspecified organism Hypotension Qualifiers: Hypotension type: unspecified hypotension type Qualified Code(s): I95.9 - Hypotension, unspecified Disposition: 09 OP ADMIT IP TO THIS HOSP Is pt being admited?: Yes Condition: Serious Time of Disposition: 16:52
[2019-11-19] MEDS ORDERED: cefTRIAXone/NS 1 GM/50 ML 1 GM/50 ML BAG IV ONE (12:03)
[2019-11-19] MEDS ORDERED: ACETAMINOPHEN 325 MG TAB PO ONE (12:03)
--- NOTE | 2019-11-19 12:57 | XRay Report ---
CHEST 1 VIEW INDICATION / CLINICAL INFORMATION: Cough. COMPARISON: 02/23/2017 FINDINGS: SUPPORT DEVICES: Pacemaker appears unchanged HEART / MEDIASTINUM: There is prominence of the cardiac silhouette LUNGS / PLEURA: There is basilar airspace disease on the left. There is mild venous congestion. There is blunting of the costophrenic angles characteristic of small amount of pleural fluid or pleural th ickening.. No pneumothorax. ADDITIONAL FINDINGS: No significant additional findings. Signer Name: Marc Salmon MD Signed: 11/19/2019 12:53 PM Workstation Name: [id number]
--- NOTE | 2019-11-19 13:04 | Cat Scan Report ---
CT BRAIN: 11/19/2019 INDICATION / CLINICAL INFORMATION: MAIN: AMS HX OF CVA LEFT SIDED WEAKNESS. COMPARISON: None available. FINDINGS: BRAIN/INTRACRANIAL STRUCTURES: Unenhanced CT images of the brain were obtained. No previous studies a re available here for comparison. There is a large area of encephalomalacia involving the right frontal and parietal lobes, consistent with remote right MCA and MARLENE territory infarct. Underlying diffuse age-related atrophic changes are present. There is no CT evidence of acute ischemic injury, hemorrhage, or mass. There are no abnormal extra-ax ial fluid collections. Atherosclerotic vascular calcifications are present in the distal internal carotid arteries and verte bral arteries. EXTRACRANIAL STRUCTURES: Unremarkable. IMPRESSION: No evidence of acute abnormality. Extensive chronic ischemic injury. All CT scans at this location are performed using dose reduction to ALARA by means of automated expos ure control. Signer Name: Jimmy Mishra MD Signed: 11/19/2019 1:00 PM Workstation Name: [id number]
[2019-11-19 13:08] LABS: Calcium 8.9 mg/dL (8.4-10.2)
[2019-11-19] MEDS ORDERED: SODIUM CHLORIDE 0.9% 1000 ML 1,000 ML IV ONE ×3 (13:13→15:18)
[2019-11-19 14:00] LABS: Bacteria,Urine 1+ /HPF (Negative); Bilirubin,Urine NEG (Negative); Blood,Urine MOD (Negative); Color,Urine Yellow (Yellow); Urobilinogen,Urine < 2.0 mg/dL (<2.0)
[2019-11-19 14:01] LABS: WBC,Urine > 182.0 /HPF (0.0-6.0)
[2019-11-19 14:21] LABS: Hematocrit 27.8 % (35.5-45.6); Hemoglobin 9.2 gm/dl (11.8-15.2); Mean Corpuscular HGB Conc 33 % (32-34); Mean Corpuscular Volume 84 fl (84-94); Platelet Count 144 K/mm3 (140-440); Red Blood Count 3.29 M/mm3 (3.65-5.03); Red Cell Distribution Width 15.9 % (13.2-15.2)
--- NOTE | 2019-11-19 15:23 | History and Physical Report ---
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 Patient is lethargic and unable to provide history at time of my evaluation. Patient history taken from EMS, ED staff, as well as adult daycare staff. As per staff the patient was found to have new onset weakness, and decreased interaction with staff, fever, decreased exercise tolerance and cough today. EMS notified and upon arrival the patient was found to be in distress and subsequently transported to [facility] for further evaluation and care. Patient seen and evaluated in the emergency department. Lab and imaging studies reviewed. Patient found to have severe sepsis with hypotension. Patient blood pressure found to be 75/48 at the time of my exam. Patient because of sepsis suspected secondary to be urinary tract infection. Patient also found to have acute kidney injury, toxic encephalopathy, and metabolic acidosis. Patient admitted to ICU and initiated on sepsis protocol. Patient found to have poor prognosis. Advanced care planning conducted in ED. No further history obtainable. All listed medication reconciled at time of admission. Past History Past Medical History: CAD, diabetes, GERD, heart failure, stroke Past Surgical History: Other (Pacemaker placement) Social history: . denies: smoking, alcohol abuse, prescription drug abuse Family history: diabetes, hypertension Medications and Allergies Allergies Allergy/AdvReac Type Severity Reaction Status Date / Time No Known Allergies Allergy Unverified 07/12/14 15:48 Home Medications Medication Instructions Recorded Confirmed Last Taken Type Aspirin [Adult Low Dose Aspirin EC] 81 mg PO DAILY #30 tablet. 07/22/16 11/19/19 Unknown Rx Gabapentin 300 mg PO BID #30 07/22/16 11/19/19 Unknown Rx Bumetanide [Bumetanide 2 mg tab] 2 mg PO DAILY 12/25/16 11/19/19 Unknown History Clopidogrel [Plavix] 75 mg PO QDAY tablet 12/27/16 11/19/19 Unknown Rx Rosuvastatin Calcium 20 mg PO DAILY 11/19/19 11/19/19 Unknown History Saxagliptin HCl [Onglyza] 5 mg PO DAILY 11/19/19 11/19/19 Unknown History carvediloL [Coreg] 3.125 mg PO BID 11/19/19 11/19/19 Unknown History Active Meds: Active Medications Sodium Chloride (Nacl 0.9% 1000 Ml) 1,000 mls @ 999 mls/hr IV BOLUS ONE Stop: 11/19/19 16:18 Last Admin: 11/19/19 15:19 Dose: 999 mls/hr Documented by: Review of Systems ROS unobtainable: due to mental status Exam - Constitutional Vitals: Temp Pulse Resp BP Pulse Ox 98.7 F 74 20 87/54 100 11/19/19 15:16 11/19/19 15:16 11/19/19 15:16 11/19/19 15:16 11/19/19 15:16 General appearance: Present: severe distress - EENT Eyes: Present: miosis ENT: hearing intact, clear oral mucosa - Neck Neck: Present: supple, normal ROM - Respiratory Respiratory effort: normal Respiratory: bilateral: CTA - Cardiovascular Rhythm: other (Tachycardia, hypotension) Heart Sounds: Present: S1 & S2. Absent: rub, click - Extremities Extremities: pulses symmetrical, No edema Peripheral Pulses: abnormal (Capillary refill greater than 3.5 seconds) - Abdominal General gastrointestinal: Present: soft, non-tender, non-distended, normal bowel sounds Male genitourinary: Present: normal - Integumentary Integumentary: Present: clear, dry, clammy, decreased turgor - Musculoskeletal Musculoskeletal: generalized weakness - Psychiatric Psychiatric: no appropriate mood/affect, no intact judgment & insight, no memory intact - Neurologic Neurologic: CNII-XII intact, focal deficits, moves all extremities, no gait normal Results - Labs CBC & Chem 7: 11/19/19 13:47 11/19/19 12:17 Labs: Abnormal lab results 11/19/19 11/19/19 11/19/19 Range/Units 12:17 12:17 12:17 RBC (3.65-5.03) M/mm3 Hgb (11.8-15.2) gm/dl Hct (35.5-45.6) % RDW (13.2-15.2) % Carbon Dioxide 20 L (22-30) mmol/L BUN 48 H (9-20) mg/dL Creatinine 2.7 H (0.8-1.5) mg/dL Glucose 176 H (75-100) mg/dL Lactic Acid 3.30 H* (0.7-2.0) mmol/L Ammonia 63.0 H (25-60) umol/L Urine WBC (Auto) (0.0-6.0) /HPF 11/19/19 11/19/19 Range/Units 13:30 13:47 RBC 3.29 L (3.65-5.03) M/mm3 Hgb 9.2 L (11.8-15.2) gm/dl Hct 27.8 L (35.5-45.6) % RDW 15.9 H (13.2-15.2) % Carbon Dioxide (22-30) mmol/L BUN (9-20) mg/dL Creatinine (0.8-1.5) mg/dL Glucose (75-100) mg/dL Lactic Acid (0.7-2.0) mmol/L Ammonia (25-60) umol/L Urine WBC (Auto) > 182.0 H (0.0-6.0) /HPF Assessment and Plan - Patient Problems (1) Sepsis Current Visit: Yes Status: Acute Qualifiers: Sepsis type: sepsis due to unspecified organism Sepsis acute organ dysfun ction status: unspecified Qualified Code(s): A41.9 - Sepsis, unspecified organism Plan to address problem: Severe sepsis: Admit to ICU, IV fluid resuscitation therapy, CBC, CMP, chest x- ray, urinalysis, IV antibiotic therapy, monitor urine output every shift, serial lactic acid level, blood culture, maintain mean arterial pressure above 65, IV pressor support as clinically indicated, critical care team consult placed in ED, (2) Acute kidney injury (CHRIS) with acute tubular necrosis (ATN) Current Visit: Yes Status: Acute Plan to address problem: IV fluid resuscitation therapy, monitor urine output every shift, nephrology consult placed in the emergency department. (3) Metabolic acidosis Current Visit: Yes Status: Acute Plan to address problem: IV fluid resuscitation therapy, treat sepsis, monitor urine output every shift, serial lactic acid levels, (4) Toxic encephalopathy Current Visit: Yes Status: Acute Plan to address problem: CT head, neuro check, aspiration precaution, seizure precautions, fall precautions, treat sepsis. (5) Diabetes Current Visit: Yes Status: Acute Plan to address problem: Sliding scale insulin diet, Accu-Chek, consistent carbohydrate diet when awake and alert only, hypoglycemia protocol. (6) CHF (congestive heart failure) Current Visit: Yes Status: Acute Qualifiers: Heart failure type: systolic Heart failure chronicity: acute on chronic Qualified Code(s): I50.23 - Acute on chronic systolic (congestive) heart failure Plan to address problem: Monitor fluid balance, treat sepsis, cardiology consult placed in ED, supportive care, submental oxygen, nebulizer therapy, afterload reduction as tolerated, patient is currently hypotensive, patient may require IV pressor support. (7) UTI (urinary tract infection) Current Visit: Yes Status: Acute Qualifiers: Urinary tract infection type: acute cystitis Hematuria presence: without hematuria Qualified Code(s): N30.00 - Acute cystitis without hematuria Plan to address problem: IV antibiotic therapy, urinalysis, CBC, CMP. (8) DVT prophylaxis Current Visit: Yes Status: Acute Plan to address problem: SCD to bilateral lower extremities while in bed, prophylactic heparin. (9) Advance care planning Current Visit: Yes Status: Acute Plan to address problem: Patient is full code, disease education conducted, +30 minutes.
[2019-11-19] MEDS ORDERED: SODIUM CHLORIDE 0.9% 1000 ML IV SOLN IV ONE (15:27)
[2019-11-19] MEDS ORDERED: SODIUM CHLORIDE 0.9% 1000 ML 1,000 ML IV SCH (15:30)
--- NOTE | 2019-11-19 16:40 | XRay Report ---
CHEST 1 VIEW INDICATION / CLINICAL INFORMATION: Popst IJ CVC insertion. COMPARISON: 11/19/2019 1208 hours FINDINGS: SUPPORT DEVICES: Right IJ catheter projects over the expected location of the superior vena cava. HEART / MEDIASTINUM: No significant abnormality. LUNGS / PLEURA: No significant pulmonary or pleural abnormality. No pneumothorax. ADDITIONAL FINDINGS: No significant additional findings. IMPRESSION: 1. No acute findings. Signer Name: Selvin Camacho MD Signed: 11/19/2019 4:36 PM Workstation Name: [id number]
[2019-11-19] MEDS ORDERED: SODIUM CHLORIDE 0.9% 1000 ML 2,000 ML ONE (16:58)
[2019-11-19] MEDS ORDERED: NORepinephrine/NS 4 MG-250 ML 4 MG/250 ML BAG IV ONE (18:37)
[2019-11-19] MEDS ORDERED: NORepinephrine/NS 4 MG-250 ML 4 MG/250 ML BAG IV SCH (19:00)
[2019-11-19] MEDS ORDERED: GABAPENTIN 300 MG CAP ONE (21:45)
[2019-11-19] MEDS ORDERED: CEFEPIME/NS 2 GM/100 ML 2 GM/100 ML BAG IV ONE (21:45)
[2019-11-19] MEDS ORDERED: HEPARIN 5,000 UNIT/1 ML VIAL ONE (21:46)
[2019-11-19] MEDS: GABAPENTIN 300 MG CAP PO SCH (21:47)
[2019-11-19] MEDS: HEPARIN 5,000 UNIT/1 ML VIAL SUB-Q SCH (21:49)
[2019-11-19] MEDS: CEFEPIME/NS 2 GM/100 ML 2 GM/100 ML BAG IV SCH (21:52)
[2019-11-20] MEDS ORDERED: ONDANSETRON 4 MG/2 ML INJ IV ONE (00:55)
[2019-11-20] MEDS ORDERED: ONDANSETRON 4 MG/2 ML INJ ONE (01:16)
[2019-11-20] MEDS ORDERED: SAXAGLIPTIN HCL 5 MG PO SCH (10:00)
[2019-11-20] MEDS ORDERED: NON-FORMULARY EACH (Rosuvastatin Calcium [Rosuvastatin Calcium] 20 MG) PO SCH (10:00)
[2019-11-20] MEDS ORDERED: ASPIRIN 81 MG TAB CHEW ONE (10:21)
[2019-11-20] MEDS ORDERED: CEFEPIME/NS 2 GM/100 ML 2 GM/100 ML BAG IV ONE (10:21)
[2019-11-20] MEDS ORDERED: HEPARIN 5,000 UNIT/1 ML VIAL ONE (10:22)
[2019-11-20] MEDS ORDERED: GABAPENTIN 300 MG CAP ONE (10:22)
[2019-11-20] MEDS ORDERED: CLOPIDOGREL 75 MG TAB ONE (10:22)
[2019-11-20] MEDS: CEFEPIME/NS 2 GM/100 ML 2 GM/100 ML BAG IV SCH (10:28)
[2019-11-20] MEDS: CLOPIDOGREL 75 MG TAB PO SCH (10:28)
[2019-11-20] MEDS: GABAPENTIN 300 MG CAP PO SCH (10:29)
[2019-11-20] MEDS: LINAGLIPTIN 5 MG TAB PO SCH (10:29)
[2019-11-20] MEDS: HEPARIN 5,000 UNIT/1 ML VIAL SUB-Q SCH ×2 (10:29→22:48)
[2019-11-20] MEDS: ASPIRIN EC 81 MG TAB PO SCH (10:30)
[2019-11-20 10:52] LABS: Hematocrit 28.8 % (35.5-45.6); Hemoglobin 9.3 gm/dl (11.8-15.2); Mean Corpuscular HGB Conc 32 % (32-34); Mean Corpuscular Volume 84 fl (84-94); Platelet Count 139 K/mm3 (140-440); Red Blood Count 3.42 M/mm3 (3.65-5.03); Red Cell Distribution Width 16.9 % (13.2-15.2)
[2019-11-20 10:55] LABS: Calcium 8.1 mg/dL (8.4-10.2)
--- NOTE | 2019-11-20 12:13 | Consultation ---
History of Present Illness - Reason for Consult Consult date: 11/20/19 acute renal failure, chronic renal failure - History of Present Illness pt with h/o CHF and CKD was admitted for AMS and worsening weakness, was found to be hypotensive and was started on levophed, UA was suggestive for UTI and was started on IVF and Cefepime, he was found to have elevated Cr and renal consult was requested. when seen he was awake and alert and able to follow simple commands and answer basic questions, no family at bedside. discussed with RN, she stated he is currently off levophen because MAP was > 65. Past History Past Medical History: CAD, diabetes, GERD, heart failure, stroke Past Surgical History: Other (Pacemaker placement) Social history: . denies: smoking, alcohol abuse, prescription drug a buse Family history: diabetes, hypertension Medications and Allergies Allergies Allergy/AdvReac Type Severity Reaction Status Date / Time No Known Allergies Allergy Unverified 07/12/14 15:48 Home Medications Medication Instructions Recorded Confirmed Last Taken Type Aspirin [Adult Low Dose Aspirin EC] 81 mg PO DAILY #30 tablet. 07/22/16 11/19/19 Unknown Rx Gabapentin 300 mg PO BID #30 07/22/16 11/19/19 Unknown Rx Bumetanide [Bumetanide 2 mg tab] 2 mg PO DAILY 12/25/16 11/19/19 Unknown History Clopidogrel [Plavix] 75 mg PO QDAY tablet 12/27/16 11/19/19 Unknown Rx Rosuvastatin Calcium 20 mg PO DAILY 11/19/19 11/19/19 Unknown History Saxagliptin HCl [Onglyza] 5 mg PO DAILY 11/19/19 11/19/19 Unknown History carvediloL [Coreg] 3.125 mg PO BID 11/19/19 11/19/19 Unknown History Active Meds: Active Medications Aspirin (Halfprin Ec) 81 mg PO DAILY [facility] Last Admin: 11/20/19 10:30 Dose: 81 mg Documented by: Atorvastatin Calcium (Lipitor) 40 mg PO QHS [facility] Last Admin: 11/19/19 21:47 Dose: 40 mg Documented by: Clopidogrel Bisulfate (Plavix) 75 mg PO QDAY [facility] Last Admin: 11/20/19 10:28 Dose: 75 mg Documented by: Gabapentin (Gabapentin) 300 mg PO BID [facility] Last Admin: 11/20/19 10:29 Dose: 300 mg Documented by: Heparin Sodium (Porcine) (Heparin) 5,000 unit SUB-Q Q12HR [facility] Last Admin: 11/20/19 10:29 Dose: 5,000 unit Documented by: Cefepime HCl (Cefepime/Ns 2 Gm/100 Ml) 2 gm in 100 mls @ 200 mls/hr IV Q12HR [facility]; Protocol Last Admin: 11/20/19 10:28 Dose: 200 mls/hr Documented by: Norepinephrine (Levophed Drip 4 Mg/Ns 250 Ml) 4 mg in 250 mls @ 7.5 mls/hr IV TITR [facility]; Protocol Last Titration: 11/20/19 11:00 Dose: 0 mcg/min, 0 mls/hr Documented by: Sodium Bicarbonate 75 meq/ (Sodium Chloride) 1,075 mls @ 75 mls/hr IV DIRECT [facility] Linagliptin (Tradjenta) 5 mg PO QDAY [facility] Last Admin: 11/20/19 10:29 Dose: 5 mg Documented by: Sodium Chloride (Sodium Chloride Flush Syringe 10 Ml) 10 ml IV BID [facility] Last Admin: 11/20/19 10:30 Dose: 10 ml Documented by: Sodium Chloride (Sodium Chloride Flush Syringe 10 Ml) 10 ml IV PRN PRN PRN Reason: LINE FLUSH Review of Systems All systems: negative (weakness and confusion) Exam - Vital Signs Vital signs: Vital Signs Temp Pulse Resp BP Pulse Ox 100.8 F H 75 22 89/52 88 11/19/19 11:31 11/19/19 11:31 11/19/19 11:31 11/19/19 11:31 11/19/19 11:31 - General Appearance General appearance: well-developed, well-nourished EENT: ATNC, PERRL, mucous membranes moist Neck: Present: neck supple Respiratory: Clear to Ascultation Heart: regular, S1S2 Gastrointestinal: Present: normoactive bowel sounds. Absent: tenderness, distended Integumentary: no rash, warm and dry Neurologic: no focal deficit, no asterixis Musculoskeletal: Present: other (no edema in BLE) Psychiatric: cooperative Results - Lab Results 11/20/19 10:16 11/20/19 10:16 Most recent lab results Calcium 8.1 mg/dL (8.4-10.2) L 11/20/19 10:16 Assessment and Plan Severe sepsis secondary to UTI CHRIS on CKD possible prerenal azotemia vs. ischemic ATN from hypotension CHF A metabolic encephalopathy anemia in CKD metabolic acidosis - Cr in 2017 was 1.9, possible progression of CKD vs. CHRIS - will start 1/2 NS with sodium bicarb, known to have CHF, CXR negative for pulm edema, will monitor volume status closely - will check urine lytes, protein and eos - will check renal US - renally dose meds - strict I&O - daily weight Terry Metz [phone]
--- NOTE | 2019-11-20 12:20 | Consultation ---
History of Present Illness Consult date: 11/20/19 Consult reason: congestive heart failure History of present illness: This is a 79-year old male with multiple medical problems. He has a history of inferior VT/coronary artery disease and ischemic cardiomyopathy. A follow up echocardiogram 4 years ago documents a left ventricular ejection fraction 20- 25%. No ischemia by a persantine thallium stress test. Patient also has a permanent pacemaker implant for paroxysmal atrial fibrillation with slow conduction. He is not on oral anticoagulation due to history of falls and severe anemia. Patient was sent to this hospital with coughs, congestion, fever and lethargy. Noted hypotensive on initial workup and started on Levophed. Labs suggestive of a UTI. Chest x-ray is negative for interstitial edema. Patient denies chest pain and palpitations. There is no lower extremity edema. His ECG is an atrial paced rhythm. Past History Past Medical History: CAD, diabetes, GERD, heart failure, stroke Past Surgical History: Other (Pacemaker placement) Social history: . denies: smoking, alcohol abuse, prescription drug abuse Family history: diabetes, hypertension Medications and Allergies Allergies Allergy/AdvReac Type Severity Reaction Status Date / Time No Known Allergies Allergy Unverified 07/12/14 15:48 Home Medications Medication Instructions Recorded Confirmed Last Taken Type Aspirin [Adult Low Dose Aspirin EC] 81 mg PO DAILY #30 tablet. 07/22/16 11/19/19 Unknown Rx Gabapentin 300 mg PO BID #30 07/22/16 11/19/19 Unknown Rx Bumetanide [Bumetanide 2 mg tab] 2 mg PO DAILY 12/25/16 11/19/19 Unknown History Clopidogrel [Plavix] 75 mg PO QDAY tablet 12/27/16 11/19/19 Unknown Rx Rosuvastatin Calcium 20 mg PO DAILY 11/19/19 11/19/19 Unknown History Saxagliptin HCl [Onglyza] 5 mg PO DAILY 11/19/19 11/19/19 Unknown History carvediloL [Coreg] 3.125 mg PO BID 11/19/19 11/19/19 Unknown History Active Meds: Active Medications Aspirin (Halfprin Ec) 81 mg PO DAILY [facility] Last Admin: 11/20/19 10:30 Dose: 81 mg Documented by: Atorvastatin Calcium (Lipitor) 40 mg PO QHS [facility] Last Admin: 11/19/19 21:47 Dose: 40 mg Documented by: Clopidogrel Bisulfate (Plavix) 75 mg PO QDAY [facility] Last Admin: 11/20/19 10:28 Dose: 75 mg Documented by: Gabapentin (Gabapentin) 300 mg PO BID [facility] Last Admin: 11/20/19 10:29 Dose: 300 mg Documented by: Heparin Sodium (Porcine) (Heparin) 5,000 unit SUB-Q Q12HR [facility] Last Admin: 11/20/19 10:29 Dose: 5,000 unit Documented by: Cefepime HCl (Cefepime/Ns 2 Gm/100 Ml) 2 gm in 100 mls @ 200 mls/hr IV Q12HR [facility]; Protocol Last Admin: 11/20/19 10:28 Dose: 200 mls/hr Documented by: Norepinephrine (Levophed Drip 4 Mg/Ns 250 Ml) 4 mg in 250 mls @ 7.5 mls/hr IV TITR [facility]; Protocol Last Titration: 11/20/19 11:00 Dose: 0 mcg/min, 0 mls/hr Documented by: Sodium Bicarbonate 75 meq/ (Sodium Chloride) 1,075 mls @ 75 mls/hr IV DIRECT [facility] Linagliptin (Tradjenta) 5 mg PO QDAY [facility] Last Admin: 11/20/19 10:29 Dose: 5 mg Documented by: Sodium Chloride (Sodium Chloride Flush Syringe 10 Ml) 10 ml IV BID [facility] Last Admin: 11/20/19 10:30 Dose: 10 ml Documented by: Sodium Chloride (Sodium Chloride Flush Syringe 10 Ml) 10 ml IV PRN PRN PRN Reason: LINE FLUSH Physical Examination Vital Signs Temp Pulse Resp BP Pulse Ox 100.8 F H 75 22 89/52 88 11/19/19 11:31 11/19/19 11:31 11/19/19 11:31 11/19/19 11:31 11/19/19 11:31 General appearance: no acute distress HEENT: Positive: PERRL Neck: Positive: trachea midline Cardiac: Positive: Other (atrial paced rhythm) Lungs: Positive: Decreased Breath Sounds Results 11/20/19 10:16 11/20/19 10:16 Cardiac Enzymes 11/19/19 Range/Units 12:17 AST 18 (5-40) units/L CBC 11/19/19 11/20/19 Range/Units 13:47 10:16 WBC 10.1 11.9 H (4.5-11.0) K/mm3 RBC 3.29 L 3.42 L (3.65-5.03) M/mm3 Hgb 9.2 L 9.3 L (11.8-15.2) gm/dl Hct 27.8 L 28.8 L (35.5-45.6) % Plt Count 144 139 L (140-440) K/mm3 Lymph # Glue Reel Operator [place] # Glue Reel Operator Eos # Glue Reel Operator Baso # Glue Reel Operator Comprehensive Metabolic Panel 11/19/19 11/20/19 Range/Units 12:17 10:16 Sodium 141 141 (137-145) mmol/L Potassium 4.6 4.1 (3.6-5.0) mmol/L Chloride 98.5 107.3 H (98-107) mmol/L Carbon Dioxide 20 L 18 L (22-30) mmol/L BUN 48 H 48 H (9-20) mg/dL Creatinine 2.7 H 2.4 H (0.8-1.5) mg/dL Glucose 176 H 222 H (75-100) mg/dL Calcium 8.9 8.1 L (8.4-10.2) mg/dL AST 18 (5-40) units/L ALT 8 (7-56) units/L Alkaline Phosphatase 111 (35-129) units/L Total Protein 8.0 (6.3-8.2) g/dL Albumin 4.0 (3.9-5) g/dL Assessment and Plan Sepsis thought secondary to UTI Hx of VT/CAD Ischemic cardiomyopathy Hx of Atrial fibrillation, paroxysmal Presence of DC PPM Acute on chronic kidney disease Anemia
--- NOTE | 2019-11-20 12:59 | Progress Note ---
Assessment and Plan Assessment and plan: Sepsis due to UTI Severe sepsis: Admit to ICU, IV fluid resuscitation therapy, CBC, CMP, chest x- ray, urinalysis, IV antibiotic therapy, monitor urine output every shift, serial lactic acid level, blood cultures X 2, maintain mean arterial pressure above 65, IV pressor support as clinically indicated. Now weaned off Lwvophed Consult ID Acute kidney injury (CHRIS) with acute tubular necrosis (ATN) IV fluid resuscitation therapy, monitor urine output every shift, nephrology consult placed in the emergency department. Improving Cr Metabolic acidosis IV fluid resuscitation therapy, treat sepsis, monitor urine output every shift, serial lactic acid levels, Toxic encephalopathy CT head, neuro check, aspiration precaution, fall precautions, Diabetes mellitus type 2 Sliding scale insulin diet, Accu-Chek, consistent carbohydrate diet when awake and alert only, hypoglycemia protocol. CHF (congestive heart failure) Monitor fluid balance, treat sepsis, cardiology consult placed in ED, supportive care, submental oxygen, nebulizer therapy, afterload reduction as tolerated, UTI (urinary tract infection) IV antibiotic therapy, urinalysis, CBC, CMP. DVT prophylaxis SCD to bilateral lower extremities while in bed, prophylactic heparin. Advance care planning Patient is full code, disease education conducted, +30 minutes. History Interval history: Fever Gen weakness Hospitalist Physical - Physical exam Narrative exam: GEN: Not in acute distress, lying in bed, HEENT: Normocephalic, atraumatic, Neck: supple, No JVD Lungs: Clear , no crackles, heart;S1 and S2 reg, no murmurs, rubs or gallop Abd:soft, non tender, non distended, normal bowel sounds Ext: No edema, no clubbing, no cyanosis, Neuro: Lethargic, - Constitutional Vitals: Temp Pulse Resp BP Pulse Ox 98.2 F 77 15 96/73 99 11/20/19 09:00 11/20/19 12:00 11/20/19 12:00 11/20/19 12:00 11/20/19 12:00 General appearance: Present: no acute distress Results - Labs CBC & Chem 7: 11/20/19 10:16 11/20/19 10:16 Labs: Laboratory Last Values WBC 11.9 K/mm3 (4.5-11.0) H 11/20/19 10:16 RBC 3.42 M/mm3 (3.65-5.03) L 11/20/19 10:16 Hgb 9.3 gm/dl (11.8-15.2) L 11/20/19 10:16 Hct 28.8 % (35.5-45.6) L 11/20/19 10:16 MCV 84 fl (84-94) 11/20/19 10:16 MCH 27 pg (28-32) L 11/20/19 10:16 MCHC 32 % (32-34) 11/20/19 10:16 RDW 16.9 % (13.2-15.2) H 11/20/19 10:16 Plt Count 139 K/mm3 (140-440) L 11/20/19 10:16 Lymph % (Auto) Fnp 11/19/19 13:47 [place] % (Auto) Fnp 11/19/19 13:47 Eos % (Auto) Fnp 11/19/19 13:47 Baso % (Auto) Fnp 11/19/19 13:47 Lymph # Fnp 11/19/19 13:47 [place] # Fnp 11/19/19 13:47 Eos # Fnp 11/19/19 13:47 Baso # Fnp 11/19/19 13:47 Seg Neutrophils % Fnp 11/19/19 13:47 Seg Neutrophils # Fnp 11/19/19 13:47 Sodium 141 mmol/L (137-145) 11/20/19 10:16 Potassium 4.1 mmol/L (3.6-5.0) 11/20/19 10:16 Chloride 107.3 mmol/L (98-107) H 11/20/19 10:16 Carbon Dioxide 18 mmol/L (22-30) L 11/20/19 10:16 Anion Gap 20 mmol/L 11/20/19 10:16 BUN 48 mg/dL (9-20) H 11/20/19 10:16 Creatinine 2.4 mg/dL (0.8-1.5) H 11/20/19 10:16 Estimated GFR 32 ml/min 11/20/19 10:16 BUN/Creatinine Ratio 20 % 11/20/19 10:16 Glucose 222 mg/dL (75-100) H 11/20/19 10:16 POC Glucose 141 (70-105) H 11/20/19 03:43 Lactic Acid 1.20 mmol/L (0.7-2.0) 11/19/19 16:06 Calcium 8.1 mg/dL (8.4-10.2) L 11/20/19 10:16 Total Bilirubin 0.90 mg/dL (0.1-1.2) 11/19/19 12:17 AST 18 units/L (5-40) 11/19/19 12:17 ALT 8 units/L (7-56) 11/19/19 12:17 Alkaline Phosphatase 111 units/L (35-129) 11/19/19 12:17 Ammonia 63.0 umol/L (25-60) H 11/19/19 12:17 Total Protein 8.0 g/dL (6.3-8.2) 11/19/19 12:17 Albumin 4.0 g/dL (3.9-5) 11/19/19 12:17 Albumin/Globulin Ratio 1.0 % 11/19/19 12:17 TSH 1.390 mlU/mL (0.270-4.200) 11/19/19 12:17 Urine Color Yellow (Yellow) 11/19/19 13:30 Urine Turbidity Cloudy (Clear) 11/19/19 13:30 Urine pH 5.0 (5.0-7.0) 11/19/19 13:30 Ur Specific [place] 1.012 (1.003-1.030) 11/19/19 13:30 Urine Protein 100 mg/dl mg/dL (Negative) 11/19/19 13:30 Urine Glucose (UA) Neg mg/dL (Negative) 11/19/19 13:30 Urine Ketones Neg mg/dL (Negative) 11/19/19 13:30 Urine Blood Mod (Negative) 11/19/19 13:30 Urine Nitrite Neg (Negative) 11/19/19 13:30 Urine Bilirubin Neg (Negative) 11/19/19 13:30 Urine Urobilinogen < 2.0 mg/dL (<2.0) 11/19/19 13:30 Ur Leukocyte Esterase Lg (Negative) 11/19/19 13:30 Urine WBC (Auto) > 182.0 /HPF (0.0-6.0) H 11/19/19 13:30 Urine RBC (Auto) 6.0 /HPF (0.0-6.0) 11/19/19 13:30 U Epithel Cells (Auto) < 1.0 /HPF (0-13.0) 11/19/19 13:30 Urine Bacteria (Auto) 1+ /HPF (Negative) 11/19/19 13:30 Urine WBC Clumps 3+ /HPF 11/19/19 13:30 Influenza A (Rapid) Negative (Negative) 11/19/19 Unknown Influenza B (Rapid) Negative (Negative) 11/19/19 Unknown Blood Type O POSITIVE 11/19/19 16:06 Antibody Screen Negative 11/19/19 16:06 Active Medications - Current Medications Current Medications: Generic Name Dose Route Start Last Admin Trade Name Freq PRN Reason Stop Dose Admin Aspirin 81 mg 11/20/19 10:00 11/20/19 10:30 Halfprin Ec PO 81 mg DAILY [facility] Administration Atorvastatin Calcium 40 mg 11/19/19 22:00 11/19/19 21:47 Lipitor PO 40 mg QHS [facility] Administration Clopidogrel Bisulfate 75 mg 11/20/19 10:00 11/20/19 10:28 Plavix PO 75 mg QDAY [facility] Administration Gabapentin 300 mg 11/19/19 22:00 11/20/19 10:29 Gabapentin PO 300 mg BID [facility] Administration Heparin Sodium (Porcine) 5,000 unit 11/19/19 22:00 11/20/19 10:29 Heparin SUB-Q 5,000 unit Q12HR [facility] Administration Cefepime HCl 2 gm in 100 mls @ 200 mls/hr 11/19/19 22:00 11/20/19 10:28 Cefepime/Ns 2 Gm/100 Ml IV 200 mls/hr Q12HR [facility] Administration Protocol Norepinephrine 4 mg in 250 mls @ 7.5 mls/hr 11/19/19 19:00 11/20/19 11:00 Levophed Drip 4 Mg/Ns 250 Ml IV 0 mcg/min TITR [facility] 0 mls/hr Titration Protocol 2 MCG/MIN Sodium Bicarbonate 75 meq/ 1,075 mls @ 75 mls/hr 11/20/19 13:00 Sodium Chloride IV DIRECT [facility] Linagliptin 5 mg 11/20/19 10:00 11/20/19 10:29 Tradjenta PO 5 mg QDAY [facility] Administration Sodium Chloride 10 ml 11/19/19 22:00 11/20/19 10:30 Sodium Chloride Flush Syringe 10 Ml IV 10 ml BID [facility] Administration Sodium Chloride 10 ml 11/19/19 15:25 Sodium Chloride Flush Syringe 10 Ml IV PRN PRN LINE FLUSH
[2019-11-20] MEDS ORDERED: SODIUM CHLORIDE 0.45% 1000 ML 1,000 ML with SODIUM BICARBONATE 75 MEQ IV SCH (13:00)
[2019-11-20 13:42] LABS: Creatinine,Urine < 4.2 mg/dL (0.1-20.0)
[2019-11-20 13:53] LABS: Protein/Creatinine Ratio,Urine 1.56
--- NOTE | 2019-11-20 15:16 | Ultrasound Report ---
ULTRASOUND RENAL INDICATION: renal failure. COMPARISON: Ultrasound dated 07/17/2016. FINDINGS: RIGHT KIDNEY: Size: 8.8 cm. Echogenicity: Increased. Cortical thickness: Mild cortical thinning. Stones: None. Hydronephrosis: None. Cyst or mass: None. LEFT KIDNEY: Size: 8.9 cm. Echogenicity: Increased. Cortical thickness: Normal. Stones: None. Hydronephrosis: None. Cyst or mass: None. Urinary Bladder: No significant abnormality. Free Fluid: None. Additional Findings: None. IMPRESSION 1. There is increased echogenicity in the kidneys characteristic of medical renal disease. There is m ild renal atrophy. Signer Name: Marc Salmon MD Signed: 11/20/2019 3:12 PM Workstation Name: [id number]
--- NOTE | 2019-11-20 16:47 | Consultation ---
History of Present Illness - Reason for Consult Consult date: 11/20/19 Sepsis Requesting physician: KATLIN DURAN - History of Present Illness The patient is a 79-year-old male with CVA, coronary artery disease, congestive heart failure, diabetes, CKD was brought into the emergency room with altered mental status and fever. Patient is a poor historian. Was found to have hypotension, fever and concerns for urinary tract infection. He was started on empiric antibiotics. Infectious diseases was consulted for additional evaluation. Patient was initially admitted to ICU briefly, also required pressors. T-max was 100.8 F. Patient is on empiric antibiotics. Unable to provide history due to drowsiness. Lying in bed, no distress. Review of Systems: Unable to obtain due to AMS. Past History Past Medical History: CAD, diabetes, GERD, heart failure, stroke Past Surgical History: Other (Pacemaker placement) Social history: . denies: smoking, alcohol abuse, prescription drug abuse Family history: diabetes, hypertension Medications and Allergies Allergies Allergy/AdvReac Type Severity Reaction Status Date / Time No Known Allergies Allergy Unverified 07/12/14 15:48 Home Medications Medication Instructions Recorded Confirmed Last Taken Type Aspirin [Adult Low Dose Aspirin EC] 81 mg PO DAILY #30 tablet.dr 07/22/16 11/19/19 Unknown Rx Gabapentin 300 mg PO BID #30 07/22/16 11/19/19 Unknown Rx Bumetanide [Bumetanide 2 mg tab] 2 mg PO DAILY 12/25/16 11/19/19 Unknown History Clopidogrel [Plavix] 75 mg PO QDAY tablet 12/27/16 11/19/19 Unknown Rx Rosuvastatin Calcium 20 mg PO DAILY 11/19/19 11/19/19 Unknown History Saxagliptin HCl [Onglyza] 5 mg PO DAILY 11/19/19 11/19/19 Unknown History carvediloL [Coreg] 3.125 mg PO BID 11/19/19 11/19/19 Unknown History Active Meds: Active Medications Aspirin (Halfprin Ec) 81 mg PO DAILY [facility] Last Admin: 11/20/19 10:30 Dose: 81 mg Documented by: Atorvastatin Calcium (Lipitor) 40 mg PO QHS [facility] Last Admin: 11/19/19 21:47 Dose: 40 mg Documented by: Clopidogrel Bisulfate (Plavix) 75 mg PO QDAY [facility] Last Admin: 11/20/19 10:28 Dose: 75 mg Documented by: Heparin Sodium (Porcine) (Heparin) 5,000 unit SUB-Q Q12HR [facility] Last Admin: 11/20/19 10:29 Dose: 5,000 unit Documented by: Cefepime HCl (Cefepime/Ns 2 Gm/100 Ml) 2 gm in 100 mls @ 200 mls/hr IV Q12HR [facility]; Protocol Last Admin: 11/20/19 10:28 Dose: 200 mls/hr Documented by: Sodium Bicarbonate 75 meq/ (Sodium Chloride) 1,075 mls @ 75 mls/hr IV DIRECT [facility] Linagliptin (Tradjenta) 5 mg PO QDAY [facility] Last Admin: 11/20/19 10:29 Dose: 5 mg Documented by: Sodium Chloride (Sodium Chloride Flush Syringe 10 Ml) 10 ml IV BID [facility] Last Admin: 11/20/19 10:30 Dose: 10 ml Documented by: Sodium Chloride (Sodium Chloride Flush Syringe 10 Ml) 10 ml IV PRN PRN PRN Reason: LINE FLUSH Physical Examination - Physical Exam Narrative exam: Physical Exam: Constitutional: Drowsy, no apparent distress. Head, Ears, Nose: Normocephalic, atraumatic. External ears, nose normal Eyes: Conjunctivae/corneas clear. No icterus. No ptosis. Neck: Supple, no meningeal signs Oral: Unable to examine due to AMS Cardiovascular: S1, S2 normal. Respiratory: Good air entry, clear to auscultation bilaterally GI: Soft, non-tender; bowel sounds normal. No peritoneal signs Musculoskeletal: No pedal edema, no cyanosis. Skin: No rash or abscess Hem/Lymphatic: No palpable cervical or supraclavicular nodes. No lymphangitis Psych: Calm, no agitation. Neurological: Drowsy. Exam limited. - Constitutional Vitals: Vital Signs Temp Pulse Resp BP Pulse Ox 98.2 F 85 20 95/66 100 11/20/19 09:00 11/20/19 15:37 11/20/19 15:00 11/20/19 15:00 11/20/19 15:37 Temperature -Last 24 Hours Temperature 98.2 F Results - Labs CBC & Chem 7: 11/20/19 10:16 11/20/19 10:16 Labs: Abnormal lab results 11/20/19 11/20/19 11/20/19 Range/Units 03:43 10:16 10:16 WBC 11.9 H (4.5-11.0) K/mm3 RBC 3.42 L (3.65-5.03) M/mm3 Hgb 9.3 L (11.8-15.2) gm/dl Hct 28.8 L (35.5-45.6) % MCH 27 L (28-32) pg RDW 16.9 H (13.2-15.2) % Plt Count 139 L (140-440) K/mm3 Chloride 107.3 H (98-107) mmol/L Carbon Dioxide 18 L (22-30) mmol/L BUN 48 H (9-20) mg/dL Creatinine 2.4 H (0.8-1.5) mg/dL Glucose 222 H (75-100) mg/dL POC Glucose 141 H (70-105) Calcium 8.1 L (8.4-10.2) mg/dL Total Creatine Kinase (55-170) units/L Urine Creatinine (0.1-20.0) mg/dL Urine Total Protein (5-11.8) mg/dL 11/20/19 11/20/19 Range/Units 10:16 12:57 WBC (4.5-11.0) K/mm3 RBC (3.65-5.03) M/mm3 Hgb (11.8-15.2) gm/dl Hct (35.5-45.6) % MCH (28-32) pg RDW (13.2-15.2) % Plt Count (140-440) K/mm3 Chloride (98-107) mmol/L Carbon Dioxide (22-30) mmol/L BUN (9-20) mg/dL Creatinine (0.8-1.5) mg/dL Glucose (75-100) mg/dL POC Glucose (70-105) Calcium (8.4-10.2) mg/dL Total Creatine Kinase 463 H (55-170) units/L Urine Creatinine 86.0 H (0.1-20.0) mg/dL Urine Total Protein 134 H (5-11.8) mg/dL - Imaging and Cardiology Chest x-ray: report reviewed, image reviewed (no pneumonia) Assessment and Plan Cultures: 11/19/2019 blood culture: No growth 11/19/2019 urine culture: Gram-negative rods Rapid Influenza: negative A/P: 79-year-old male with CVA, coronary artery disease, congestive heart failure, diabetes, CKD was brought into the emergency room with altered mental status and fever with: #Severe sepsis, secondary to urinary tract infection: UA with significant pyuria, urine culture with gram-negatives. Pneumonia not seen on chest x-ray. Renal ultrasound without obstruction. #Acute renal failure on CKD: Renally dose antibiotics. #Acute encephalopathy: Extensive chronic ischemic injury, no acute abnormality seen on head CT. Likely related to sepsis and UTI. Recs: Continue IV Cefepime, dose decreased to 1 g every 12 hours due to renal dysfunction Follow up urine and blood cultures d/w Dr. Duran. Candy Wallace MD, FACP [facility] C: [phone] O: [phone] F: [phone]
[2019-11-20] MEDS: CEFEPIME/NS 1 GM/100 ML 1 GM/100 ML BAG IV SCH (22:47)
[2019-11-20] MEDS: BENZONATATE 100 MG CAP PO PRN (22:48)
[2019-11-21 04:46] LABS: Basophils % (Auto) 0.2 % (0.0-1.8); Eosinophils # (Auto) 0.1 K/mm3 (0.0-0.4); Hematocrit 25.9 % (35.5-45.6); Hemoglobin 8.7 gm/dl (11.8-15.2); Lymphocytes # (Auto) 0.5 K/mm3 (1.2-5.4); Lymphocytes % (Auto) 5.8 % (13.4-35.0); Mean Corpuscular HGB Conc 34 % (32-34); Mean Corpuscular Volume 84 fl (84-94); Monocytes # (Auto) 0.6 K/mm3 (0.0-0.8); Monocytes % (Auto) 7.8 % (0.0-7.3); Platelet Count 110 K/mm3 (140-440); Red Blood Count 3.09 M/mm3 (3.65-5.03); Red Cell Distribution Width 16.3 % (13.2-15.2)
[2019-11-21 05:52] LABS: Calcium 8.2 mg/dL (8.4-10.2)
[2019-11-21] MEDS: SODIUM BICARBONATE 75 MEQ in SODIUM CHLORIDE 0.45% 1000 ML 1,000 ML IV SCH (06:29)
--- NOTE | 2019-11-21 10:11 | Progress Note ---
Assessment and Plan Assessment and plan: Sepsis due to UTI Severe sepsis: Continue IV antibiotic therapywith Cefepime monitor urine output every shift, serial lactic blood cultures X 2, drawn maintain mean arterial pressure above 65, IV pressor support as clinically indicated. Now weaned off Levophed Consulted ID, following Acute kidney injury (CHRIS) with acute tubular necrosis (ATN) IV fluid resuscitation therapy, monitor urine output every shift, Nephrology consult placed in the emergency department. Improving Cr Hyponatremia Monitor Metabolic acidosis IV fluid resuscitation therapy, treat sepsis, monitor urine output every shift, serial lactic acid levels, Toxic encephalopathy CT head, neuro check, aspiration precaution, fall precautions, Diabetes mellitus type 2 Sliding scale insulin diet, Accu-Chek, consistent carbohydrate diet when awake and alert only, hypoglycemia protocol. Chronic systolic CHF (congestive heart failure) Monitor fluid balance, cardiology consult placed in ED, Cardiology following supportive care, oxygen, nebulizer therapy, afterload reduction as tolerated, UTI (urinary tract infection) IV antibiotic therapy, urinalysis, DVT prophylaxis SCD to bilateral lower extremities while in bed, prophylactic heparin. Advance care planning Patient is full code, disease education conducted, +30 minutes. History Interval history: Presented with fever No more fever since yesterday Gen weakness Hospitalist Physical - Physical exam Narrative exam: GEN: Not in acute distress, lying in bed, HEENT: Normocephalic, atraumatic, Neck: supple, No JVD Lungs: Clear , no crackles, heart;S1 and S2 reg, no murmurs, rubs or gallop Abd:soft, non tender, non distended, normal bowel sounds Ext: No edema, no clubbing, no cyanosis, Neuro:Awake, alert,oriented - Constitutional Vitals: Temp Pulse Resp BP Pulse Ox 98.1 F 69 20 96/65 99 11/21/19 07:23 11/21/19 07:23 11/21/19 07:23 11/21/19 07:23 11/21/19 07:23 General appearance: Present: no acute distress Results - Labs CBC & Chem 7: 11/21/19 04:30 11/21/19 04:30 Labs: Laboratory Last Values WBC 8.3 K/mm3 (4.5-11.0) 11/21/19 04:30 RBC 3.09 M/mm3 (3.65-5.03) L 11/21/19 04:30 Hgb 8.7 gm/dl (11.8-15.2) L 11/21/19 04:30 Hct 25.9 % (35.5-45.6) L 11/21/19 04:30 MCV 84 fl (84-94) 11/21/19 04:30 MCH 28 pg (28-32) 11/21/19 04:30 MCHC 34 % (32-34) 11/21/19 04:30 RDW 16.3 % (13.2-15.2) H 11/21/19 04:30 Plt Count 110 K/mm3 (140-440) L 11/21/19 04:30 Lymph % (Auto) 5.8 % (13.4-35.0) L 11/21/19 04:30 [place] % (Auto) 7.8 % (0.0-7.3) H 11/21/19 04:30 Eos % (Auto) 1.0 % (0.0-4.3) 11/21/19 04:30 Baso % (Auto) 0.2 % (0.0-1.8) 11/21/19 04:30 Lymph # 0.5 K/mm3 (1.2-5.4) L 11/21/19 04:30 [place] # 0.6 K/mm3 (0.0-0.8) 11/21/19 04:30 Eos # 0.1 K/mm3 (0.0-0.4) 11/21/19 04:30 Baso # 0.0 K/mm3 (0.0-0.1) 11/21/19 04:30 Seg Neutrophils % 85.2 % (40.0-70.0) H 11/21/19 04:30 Seg Neutrophils # 7.1 K/mm3 (1.8-7.7) 11/21/19 04:30 Sodium 136 mmol/L (137-145) L 11/21/19 04:30 Potassium 3.7 mmol/L (3.6-5.0) 11/21/19 04:30 Chloride 101.5 mmol/L (98-107) 11/21/19 04:30 Carbon Dioxide 21 mmol/L (22-30) L 11/21/19 04:30 Anion Gap 17 mmol/L 11/21/19 04:30 BUN 42 mg/dL (9-20) H 11/21/19 04:30 Creatinine 2.1 mg/dL (0.8-1.5) H 11/21/19 04:30 Estimated GFR 37 ml/min 11/21/19 04:30 BUN/Creatinine Ratio 20 % 11/21/19 04:30 Glucose 126 mg/dL (75-100) H 11/21/19 04:30 POC Glucose 122 (70-105) H 11/21/19 07:39 Lactic Acid 1.20 mmol/L (0.7-2.0) 11/19/19 16:06 Calcium 8.2 mg/dL (8.4-10.2) L 11/21/19 04:30 Phosphorus 3.20 mg/dL (2.5-4.5) 11/21/19 04:30 Iron 33 ug/dL (49-181) L 11/21/19 04:30 TIBC 186 mcg/dL (250-450) L 11/21/19 04:30 Ferritin 266.3 ng/mL (13.0-400.0) 11/21/19 04:30 Total Bilirubin 0.90 mg/dL (0.1-1.2) 11/19/19 12:17 AST 18 units/L (5-40) 11/19/19 12:17 ALT 8 units/L (7-56) 11/19/19 12:17 Alkaline Phosphatase 111 units/L (35-129) 11/19/19 12:17 Ammonia 63.0 umol/L (25-60) H 11/19/19 12:17 Total Creatine Kinase 463 units/L (55-170) H 11/20/19 10:16 Troponin T 0.028 ng/mL (0.00-0.029) 11/20/19 10:16 Total Protein 8.0 g/dL (6.3-8.2) 11/19/19 12:17 Albumin 4.0 g/dL (3.9-5) 11/19/19 12:17 Albumin/Globulin Ratio 1.0 % 11/19/19 12:17 TSH 1.390 mlU/mL (0.270-4.200) 11/19/19 12:17 Urine Color Yellow (Yellow) 11/19/19 13:30 Urine Turbidity Cloudy (Clear) 11/19/19 13:30 Urine pH 5.0 (5.0-7.0) 11/19/19 13:30 Ur Specific [place] 1.012 (1.003-1.030) 11/19/19 13:30 Urine Protein 100 mg/dl mg/dL (Negative) 11/19/19 13:30 Urine Glucose (UA) Neg mg/dL (Negative) 11/19/19 13:30 Urine Ketones Neg mg/dL (Negative) 11/19/19 13:30 Urine Blood Mod (Negative) 11/19/19 13:30 Urine Nitrite Neg (Negative) 11/19/19 13:30 Urine Bilirubin Neg (Negative) 11/19/19 13:30 Urine Urobilinogen < 2.0 mg/dL (<2.0) 11/19/19 13:30 Ur Leukocyte Esterase Lg (Negative) 11/19/19 13:30 Urine WBC (Auto) > 182.0 /HPF (0.0-6.0) H 11/19/19 13:30 Urine RBC (Auto) 6.0 /HPF (0.0-6.0) 11/19/19 13:30 U Epithel Cells (Auto) < 1.0 /HPF (0-13.0) 11/19/19 13:30 Urine Bacteria (Auto) 1+ /HPF (Negative) 11/19/19 13:30 Urine WBC Clumps 3+ /HPF 11/19/19 13:30 Urine Eosinophils None seen (None Seen) 11/20/19 12:57 Urine Creatinine 86.0 mg/dL (0.1-20.0) H 11/20/19 12:57 Urine Creatinine < 4.2 mg/dL (0.1-20.0) 11/20/19 12:57 Protein/Creatinin Ratio 1.56 11/20/19 12:57 Urine Sodium 10 mmol/L 11/20/19 12:57 Urine Total Protein 134 mg/dL (5-11.8) H 11/20/19 12:57 Influenza A (Rapid) Negative (Negative) 11/19/19 Unknown Influenza B (Rapid) Negative (Negative) 11/19/19 Unknown Blood Type O POSITIVE 11/19/19 16:06 Antibody Screen Negative 11/19/19 16:06 Active Medications - Current Medications Current Medications: Generic Name Dose Route Start Last Admin Trade Name Freq PRN Reason Stop Dose Admin Aspirin 81 mg 11/20/19 10:00 11/20/19 10:30 Halfprin Ec PO 81 mg DAILY CESILIA Administration Atorvastatin Calcium 40 mg 11/19/19 22:00 11/20/19 22:48 Lipitor PO 40 mg QHS CESILIA Administration Benzonatate 100 mg 11/20/19 21:34 11/20/19 22:48 Tessalon Perles PO 100 mg Q6H PRN Administration Cough Clopidogrel Bisulfate 75 mg 11/20/19 10:00 11/20/19 10:28 Plavix PO 75 mg QDAY CESILIA Administration Heparin Sodium (Porcine) 5,000 unit 11/19/19 22:00 11/20/19 22:48 Heparin SUB-Q 5,000 unit Q12HR CESILIA Administration Cefepime HCl 1 gm in 100 mls @ 200 mls/hr 11/20/19 22:00 11/20/19 22:47 Cefepime/Ns 1 Gm/100 Ml IV 200 mls/hr Q12HR CESILIA Administration Protocol Sodium Bicarbonate 75 meq/ 1,075 mls @ 75 mls/hr 11/21/19 07:00 11/21/19 06:29 Sodium Chloride IV 75 mls/hr DIRECT CESILIA Administration Linagliptin 5 mg 11/20/19 10:00 11/20/19 10:29 Tradjenta PO 5 mg QDAY CESILIA Administration Sodium Chloride 10 ml 11/19/19 22:00 11/20/19 22:53 Sodium Chloride Flush Syringe 10 Ml IV 10 ml BID CESILIA Administration Sodium Chloride 10 ml 11/19/19 15:25 Sodium Chloride Flush Syringe 10 Ml IV PRN PRN LINE FLUSH
[2019-11-21] MEDS: ASPIRIN EC 81 MG TAB PO SCH (10:16)
[2019-11-21] MEDS: LINAGLIPTIN 5 MG TAB PO SCH (10:16)
[2019-11-21] MEDS: HEPARIN 5,000 UNIT/1 ML VIAL SUB-Q SCH ×2 (10:16→22:35)
[2019-11-21] MEDS: CLOPIDOGREL 75 MG TAB PO SCH (10:16)
--- NOTE | 2019-11-21 10:57 | Progress Note ---
Assessment and Plan Sepsis thought secondary to UTI Hx of AK/CAD Hx of Ischemic cardiomyopathy there is no evidence of decompensation Hx of Atrial fibrillation, paroxysmal not on anticoagulation due to high bleeding risk in sinus rhythm Presence of DC PPM Chronic kidney disease Anemia Hx of COPD Recommendations: Continue medical therapy for his paroxysmal atrial fibrillation, coronary artery disease and ischemic cardiomyopathy. Echocardiogram will be done for left ventricular function reassessment. Subjective Date of service: 11/21/19 Interval history: Patient is resting in bed comfortably. He reports his breathing is better. Still with coughs. Objective Vital Signs Temp Pulse Resp BP BP Pulse Ox 11/21/19 07:23 98.1 F 69 20 96/65 99 11/21/19 02:58 70 11/21/19 02:34 97.8 F 11/21/19 02:31 70 16 90/62 100 11/21/19 02:13 20 87/58 11/20/19 20:10 98.3 F 70 20 96/56 100 11/20/19 20:08 71 100 11/20/19 20:07 92/56 80 L 11/20/19 20:05 97.6 F 11/20/19 15:37 85 100 11/20/19 15:00 20 95/66 98 11/20/19 14:00 72 19 92/59 99 11/20/19 13:00 71 20 101/66 99 11/20/19 12:00 77 15 96/73 99 11/20/19 11:00 72 13 104/71 100 - Physical Examination General: No Apparent Distress HEENT: Positive: PERRL Neck: Positive: trachea midline Cardiac: Positive: Reg Rate and Rhythm Lungs: Positive: Decreased Breath Sounds Extremities: Absent: edema - Labs and Meds CBC 11/21/19 Range/Units 04:30 WBC 8.3 (4.5-11.0) K/mm3 RBC 3.09 L (3.65-5.03) M/mm3 Hgb 8.7 L (11.8-15.2) gm/dl Hct 25.9 L (35.5-45.6) % Plt Count 110 L (140-440) K/mm3 Lymph # 0.5 L (1.2-5.4) K/mm3 [place] # 0.6 (0.0-0.8) K/mm3 Eos # 0.1 (0.0-0.4) K/mm3 Baso # 0.0 (0.0-0.1) K/mm3 Comprehensive Metabolic Panel 11/20/19 11/21/19 Range/Units 10:16 04:30 Sodium 141 136 L (137-145) mmol/L Potassium 4.1 3.7 (3.6-5.0) mmol/L Chloride 107.3 H 101.5 (98-107) mmol/L Carbon Dioxide 18 L 21 L (22-30) mmol/L BUN 48 H 42 H (9-20) mg/dL Creatinine 2.4 H 2.1 H (0.8-1.5) mg/dL Glucose 222 H 126 H (75-100) mg/dL Calcium 8.1 L 8.2 L (8.4-10.2) mg/dL
--- NOTE | 2019-11-21 11:50 | Consultation ---
History of Present Illness - Reason for Consult Consult date: 11/21/19 Hypotension Requesting physician: YANET MAK - History of Present Illness 79 y/o male admitted yesterday with sepsis thought secondary to urinary source with shock. Patient was adequately resuscitated and weaned of IV vasopressor therapy. He has since been down graded and transitioned to the floor. When I saw him yesterday, after reviewing the chart and speaking with nursing, they aggressive weaned pressors and accepted lower maps given the patient's history of systolic CHF and likely living a chronic low flow state. Past History Past Medical History: CAD, diabetes, GERD, heart failure, stroke Past Surgical History: Other (Pacemaker placement) Social history: . denies: smoking, alcohol abuse, prescription drug abuse Family history: diabetes, hypertension Medications and Allergies Allergies Allergy/AdvReac Type Severity Reaction Status Date / Time No Known Allergies Allergy Unverified 07/12/14 15:48 Home Medications Medication Instructions Recorded Confirmed Last Taken Type Aspirin [Adult Low Dose Aspirin EC] 81 mg PO DAILY #30 tablet. 07/22/16 11/19/19 Unknown Rx Gabapentin 300 mg PO BID #30 07/22/16 11/19/19 Unknown Rx Bumetanide [Bumetanide 2 mg tab] 2 mg PO DAILY 12/25/16 11/19/19 Unknown History Clopidogrel [Plavix] 75 mg PO QDAY tablet 12/27/16 11/19/19 Unknown Rx Rosuvastatin Calcium 20 mg PO DAILY 11/19/19 11/19/19 Unknown History Saxagliptin HCl [Onglyza] 5 mg PO DAILY 11/19/19 11/19/19 Unknown History carvediloL [Coreg] 3.125 mg PO BID 11/19/19 11/19/19 Unknown History Active Meds: Active Medications Aspirin (Halfprin Ec) 81 mg PO DAILY [facility] Last Admin: 11/21/19 10:16 Dose: 81 mg Documented by: Atorvastatin Calcium (Lipitor) 40 mg PO QHS [facility] Last Admin: 11/20/19 22:48 Dose: 40 mg Documented by: Benzonatate (Tessalon Perles) 100 mg PO Q6H PRN PRN Reason: Cough Last Admin: 11/20/19 22:48 Dose: 100 mg Documented by: Clopidogrel Bisulfate (Plavix) 75 mg PO QDAY [facility] Last Admin: 11/21/19 10:16 Dose: 75 mg Documented by: Heparin Sodium (Porcine) (Heparin) 5,000 unit SUB-Q Q12HR [facility] Last Admin: 11/21/19 10:16 Dose: 5,000 unit Documented by: Cefepime HCl (Cefepime/Ns 1 Gm/100 Ml) 1 gm in 100 mls @ 200 mls/hr IV Q12HR CESILIA; Protocol Last Admin: 11/20/19 22:47 Dose: 200 mls/hr Documented by: Sodium Bicarbonate 75 meq/ (Sodium Chloride) 1,075 mls @ 75 mls/hr IV DIRECT [facility] Last Admin: 11/21/19 06:29 Dose: 75 mls/hr Documented by: Linagliptin (Tradjenta) 5 mg PO QDAY [facility] Last Admin: 11/21/19 10:16 Dose: 5 mg Documented by: Sodium Chloride (Sodium Chloride Flush Syringe 10 Ml) 10 ml IV BID [facility] Last Admin: 11/21/19 10:19 Dose: 10 ml Documented by: Sodium Chloride (Sodium Chloride Flush Syringe 10 Ml) 10 ml IV PRN PRN PRN Reason: LINE FLUSH Review of Systems All systems: negative Exam - Constitutional Vitals: Temp Pulse Resp BP Pulse Ox 98.1 F 69 20 96/65 99 11/21/19 07:23 11/21/19 07:23 11/21/19 07:23 11/21/19 07:23 11/21/19 07:23 Results - Labs CBC & Chem 7: 11/21/19 04:30 11/21/19 04:30 Labs: Abnormal lab results 11/20/19 11/20/19 11/20/19 Range/Units 10:16 12:57 22:40 RBC (3.65-5.03) M/mm3 Hgb (11.8-15.2) gm/dl Hct (35.5-45.6) % RDW (13.2-15.2) % Plt Count (140-440) K/mm3 Lymph % (Auto) (13.4-35.0) % [place] % (Auto) (0.0-7.3) % Lymph # (1.2-5.4) K/mm3 Seg Neutrophils % (40.0-70.0) % Sodium (137-145) mmol/L Carbon Dioxide (22-30) mmol/L BUN (9-20) mg/dL Creatinine (0.8-1.5) mg/dL Glucose (75-100) mg/dL POC Glucose 140 H (70-105) Calcium (8.4-10.2) mg/dL Iron (49-181) ug/dL TIBC (250-450) mcg/dL Total Creatine Kinase 463 H (55-170) units/L Urine Creatinine 86.0 H (0.1-20.0) mg/dL Urine Total Protein 134 H (5-11.8) mg/dL 11/21/19 11/21/19 11/21/19 Range/Units 04:30 04:30 07:39 RBC 3.09 L (3.65-5.03) M/mm3 Hgb 8.7 L (11.8-15.2) gm/dl Hct 25.9 L (35.5-45.6) % RDW 16.3 H (13.2-15.2) % Plt Count 110 L (140-440) K/mm3 Lymph % (Auto) 5.8 L (13.4-35.0) % [place] % (Auto) 7.8 H (0.0-7.3) % Lymph # 0.5 L (1.2-5.4) K/mm3 Seg Neutrophils % 85.2 H (40.0-70.0) % Sodium 136 L (137-145) mmol/L Carbon Dioxide 21 L (22-30) mmol/L BUN 42 H (9-20) mg/dL Creatinine 2.1 H (0.8-1.5) mg/dL Glucose 126 H (75-100) mg/dL POC Glucose 122 H (70-105) Calcium 8.2 L (8.4-10.2) mg/dL Iron 33 L (49-181) ug/dL TIBC 186 L (250-450) mcg/dL Total Creatine Kinase (55-170) units/L Urine Creatinine (0.1-20.0) mg/dL Urine Total Protein (5-11.8) mg/dL - Imaging and Cardiology Chest x-ray: image reviewed (no acute findings noted. none related to admitting diagnosis. Cardiomegaly) Assessment and Plan 79 y/o male with septic shock secondary to urinary source. 1. Weaned Off Vasopressors 2. Follow up cardiology and ID recs 3. Will sign off at this time. Call if questions.
[2019-11-21] MEDS: CEFEPIME/NS 1 GM/100 ML 1 GM/100 ML BAG IV SCH ×2 (12:00→22:53)
--- NOTE | 2019-11-21 14:20 | Progress Note ---
Assessment and Plan Cultures: 11/19/2019 blood culture: No growth 11/19/2019 urine culture: [place] Rapid Influenza: negative A/P: 79-year-old male with CVA, coronary artery disease, congestive heart failure, diabetes, CKD was brought into the emergency room with altered mental status and fever with: #Severe sepsis, secondary to urinary tract infection: UA with significant pyuria, urine culture with gram-negatives: [place]. Pneumonia not seen on chest x-ray. Renal ultrasound without obstruction. #Acute renal failure on CKD: Renally dose antibiotics. #Acute encephalopathy: Extensive chronic ischemic injury, no acute abnormality seen on head CT. Likely related to sepsis and UTI. Recs: Continue IV Cefepime 1 g every 12 hours due to renal dysfunction [place] can be an AmpC beta-lactamase agent producer, so would not de-escalate to lower general cephalosporins Follow up urine and blood cultures Candy Wallace MD, FACP [facility] ([facility]) C: [phone] O: [phone] F: [phone] Subjective Date of service: 11/21/19 Interval history: No fever. More awake today. Answering questions. Denies any complaints. Objective - Exam Narrative Exam: Physical Exam: Constitutional: awake, alert, no distress. Head, Ears, Nose: Normocephalic, atraumatic. External ears, nose normal Eyes: Conjunctivae/corneas clear. No icterus. No ptosis. Neck: Supple, no meningeal signs Cardiovascular: S1, S2 normal. Respiratory: Good air entry, clear to auscultation bilaterally GI: Soft, non-tender; bowel sounds normal. No peritoneal signs Musculoskeletal: No pedal edema, no cyanosis. Skin: No rash or abscess Hem/Lymphatic: No palpable cervical or supraclavicular nodes. No lymphangitis Psych: Calm, no agitation. Neurological: awake, alert, no distress. answering questions - Constitutional Vitals: Vital Signs Temp Pulse Resp BP Pulse Ox 98.1 F 69 20 96/65 99 11/21/19 07:23 11/21/19 07:23 11/21/19 07:23 11/21/19 07:23 11/21/19 07:23 Temperature -Last 24 Hours Temperature 98.1 F Temperature 97.8 F Temperature 98.3 F Temperature 97.6 F - Labs CBC & Chem 7: 11/21/19 04:30 11/21/19 04:30 Labs: Abnormal lab results 11/20/19 11/20/19 11/21/19 Range/Units 10:16 22:40 04:30 RBC 3.09 L (3.65-5.03) M/mm3 Hgb 8.7 L (11.8-15.2) gm/dl Hct 25.9 L (35.5-45.6) % RDW 16.3 H (13.2-15.2) % Plt Count 110 L (140-440) K/mm3 Lymph % (Auto) 5.8 L (13.4-35.0) % [place] % (Auto) 7.8 H (0.0-7.3) % Lymph # 0.5 L (1.2-5.4) K/mm3 Seg Neutrophils % 85.2 H (40.0-70.0) % Sodium (137-145) mmol/L Carbon Dioxide (22-30) mmol/L BUN (9-20) mg/dL Creatinine (0.8-1.5) mg/dL Glucose (75-100) mg/dL POC Glucose 140 H (70-105) Calcium (8.4-10.2) mg/dL Iron (49-181) ug/dL TIBC (250-450) mcg/dL Total Creatine Kinase 463 H (55-170) units/L 11/21/19 11/21/19 11/21/19 Range/Units 04:30 07:39 12:07 RBC (3.65-5.03) M/mm3 Hgb (11.8-15.2) gm/dl Hct (35.5-45.6) % RDW (13.2-15.2) % Plt Count (140-440) K/mm3 Lymph % (Auto) (13.4-35.0) % [place] % (Auto) (0.0-7.3) % Lymph # (1.2-5.4) K/mm3 Seg Neutrophils % (40.0-70.0) % Sodium 136 L (137-145) mmol/L Carbon Dioxide 21 L (22-30) mmol/L BUN 42 H (9-20) mg/dL Creatinine 2.1 H (0.8-1.5) mg/dL Glucose 126 H (75-100) mg/dL POC Glucose 122 H 178 H (70-105) Calcium 8.2 L (8.4-10.2) mg/dL Iron 33 L (49-181) ug/dL TIBC 186 L (250-450) mcg/dL Total Creatine Kinase (55-170) units/L
--- NOTE | 2019-11-21 15:49 | Progress Note ---
Assessment and Plan Severe sepsis secondary to UTI CHRIS on CKD possibly prerenal azotemia vs. ischemic ATN from hypotension Ischemic cardiomyopathy Toxic encephalopathy Anemia in CKD Non-Anion Gap Metabolic acidosis Hx of Paroxysmal Atrial Fibrillation Hx of CAD/LA Plan: - Renal function reviewed, SCr level was 2.1 today, yesterday's SCr level was 2.4 - SCr in 2017 was 1.9, possibly progression of CKD vs. CHRIS - On 0.45% NS + 75 mEq sodium bicarbonate infusion at 75 ml/hr, CXR negative for pulmonary edema, will monitor volume status closely - Low urine sodium suggestive of prerenal etiology - Calculated protein to cr ratio 1.5 g, urine eosinophils negative - Follow up Renal US report - unable to view report - Renally dose meds - Needs strict intake and output - [place] Catheter: No - Renal plan d/w Dr Fisher Subjective Date of service: 11/21/19 Interval history: Pt seen in bed, denies shortness of breath, states tolerating meals ok, no nausea or vomiting, no acute distress, no family at bedside Objective - Vital Signs Vital signs: Vital Signs - 12hr 11/21/19 07:23 Temperature 98.1 F Pulse Rate 69 Respiratory 20 Rate Blood Pressure 96/65 O2 Sat by Pulse 99 Oximetry - General Appearance General appearance: well-developed EENT: ATNC Neck: no JVD Respiratory: Present: Decreased Breath Sounds Cardiology: regular, S1S2 Gastrointestinal: normoactive bowel sounds, no tenderness Integumentary: warm and dry Neurologic: alert and oriented x3 Musculoskeletal: other (no edema to BLE) Psychiatric: cooperative - Lab 11/21/19 04:30 11/21/19 04:30 Most recent lab results Calcium 8.2 mg/dL (8.4-10.2) L 11/21/19 04:30 Phosphorus 3.20 mg/dL (2.5-4.5) 11/21/19 04:30 Urine Creatinine 86.0 mg/dL (0.1-20.0) H 11/20/19 12:57 Urine Creatinine < 4.2 mg/dL (0.1-20.0) 11/20/19 12:57 Urine Sodium 10 mmol/L 11/20/19 12:57 Urine Total Protein 134 mg/dL (5-11.8) H 11/20/19 12:57 Medications & Allergies - Medications Allergies/Adverse Reactions: Allergies No Known Allergies Allergy (Unverified 07/12/14 15:48) Home Medications: Home Medications Medication Instructions Recorded Confirmed Last Taken Type Aspirin [Adult Low Dose Aspirin EC] 81 mg PO DAILY #30 tablet. 07/22/16 11/19/19 Unknown Rx Gabapentin 300 mg PO BID #30 07/22/16 11/19/19 Unknown Rx Bumetanide [Bumetanide 2 mg tab] 2 mg PO DAILY 12/25/16 11/19/19 Unknown History Clopidogrel [Plavix] 75 mg PO QDAY tablet 12/27/16 11/19/19 Unknown Rx Rosuvastatin Calcium 20 mg PO DAILY 11/19/19 11/19/19 Unknown History Saxagliptin HCl [Onglyza] 5 mg PO DAILY 11/19/19 11/19/19 Unknown History carvediloL [Coreg] 3.125 mg PO BID 11/19/19 11/19/19 Unknown History Active Medications: Generic Name Dose Route Start Last Admin Trade Name Freq PRN Reason Stop Dose Admin Aspirin 81 mg 11/20/19 10:00 11/21/19 10:16 Halfprin Ec PO 81 mg DAILY CESILIA Administration Atorvastatin Calcium 40 mg 11/19/19 22:00 11/20/19 22:48 Lipitor PO 40 mg QHS CESILIA Administration Benzonatate 100 mg 11/20/19 21:34 11/20/19 22:48 Tessalon Perles PO 100 mg Q6H PRN Administration Cough Clopidogrel Bisulfate 75 mg 11/20/19 10:00 11/21/19 10:16 Plavix PO 75 mg QDAY CESILIA Administration Heparin Sodium (Porcine) 5,000 unit 11/19/19 22:00 11/21/19 10:16 Heparin SUB-Q 5,000 unit Q12HR CESILIA Administration Cefepime HCl 1 gm in 100 mls @ 200 mls/hr 11/20/19 22:00 11/20/19 22:47 Cefepime/Ns 1 Gm/100 Ml IV 200 mls/hr Q12HR CESILIA Administration Protocol Sodium Bicarbonate 75 meq/ 1,075 mls @ 75 mls/hr 11/21/19 07:00 11/21/19 06:29 Sodium Chloride IV 75 mls/hr DIRECT CESILIA Administration Linagliptin 5 mg 11/20/19 10:00 11/21/19 10:16 Tradjenta PO 5 mg QDAY CESILIA Administration Sodium Chloride 10 ml 11/19/19 22:00 11/21/19 10:19 Sodium Chloride Flush Syringe 10 Ml IV 10 ml BID CESILIA Administration Sodium Chloride 10 ml 11/19/19 15:25 Sodium Chloride Flush Syringe 10 Ml IV PRN PRN LINE FLUSH
[2019-11-22] MEDS: SODIUM BICARBONATE 75 MEQ in SODIUM CHLORIDE 0.45% 1000 ML 1,000 ML IV SCH ×2 (01:22→19:21)
[2019-11-22 06:01] LABS: Basophils % (Auto) 0.3 % (0.0-1.8); Eosinophils # (Auto) 0.1 K/mm3 (0.0-0.4); Eosinophils % (Auto) 1.8 % (0.0-4.3); Hematocrit 28.7 % (35.5-45.6); Hemoglobin 9.2 gm/dl (11.8-15.2); Lymphocytes # (Auto) 0.5 K/mm3 (1.2-5.4); Lymphocytes % (Auto) 9.2 % (13.4-35.0); Mean Corpuscular HGB Conc 32 % (32-34); Mean Corpuscular Volume 85 fl (84-94); Monocytes # (Auto) 0.5 K/mm3 (0.0-0.8); Monocytes % (Auto) 8.8 % (0.0-7.3); Platelet Count 110 K/mm3 (140-440); Red Blood Count 3.36 M/mm3 (3.65-5.03); Red Cell Distribution Width 16.5 % (13.2-15.2)
[2019-11-22 06:10] LABS: Calcium 8.4 mg/dL (8.4-10.2)
[2019-11-22] MEDS: CEFEPIME/NS 1 GM/100 ML 1 GM/100 ML BAG IV SCH ×2 (09:25→23:52)
[2019-11-22] MEDS: HEPARIN 5,000 UNIT/1 ML VIAL SUB-Q SCH ×2 (09:31→23:53)
[2019-11-22] MEDS: CLOPIDOGREL 75 MG TAB PO SCH (09:31)
[2019-11-22] MEDS: ASPIRIN EC 81 MG TAB PO SCH (09:31)
[2019-11-22] MEDS: LINAGLIPTIN 5 MG TAB PO SCH (09:31)
--- NOTE | 2019-11-22 10:11 | Progress Note ---
Assessment and Plan Assessment: Severe sepsis secondary to UTI CHRIS on CKD possibly prerenal azotemia vs. ischemic ATN from hypotension Ischemic cardiomyopathy Toxic encephalopathy Anemia in CKD Non-Anion Gap Metabolic acidosis Hx of Paroxysmal Atrial Fibrillation Hx of CAD/ND Plan: - Renal function reviewed, SCr level was 2.1 today, yesterday's SCr level was 2.1, stable - SCr in 2017 was 1.9, possibly progression of CKD vs. CHRIS - On 0.45% NS + 75 mEq sodium bicarbonate infusion at 75 ml/hr - CXR negative for pulmonary edema, monitor volume status closely - Low urine sodium suggestive of prerenal etiology - Calculated protein to cr ratio 1.5 g, urine eosinophils negative - Renal US reviewed- medical renal disease - Renally dose medications - Needs strict intake and output - Noonan Catheter: No - Continue to monitor renal function Subjective Date of service: 11/22/19 Principal diagnosis: Acute on CKD Interval history: Patient seen lying in bed. No family at bedside. Objective - Vital Signs Vital signs: Vital Signs - 12hr 11/22/19 11/22/19 11/22/19 01:51 02:25 07:37 Temperature 98.5 F 97.5 F L Pulse Rate 69 70 Pulse Rate [ 75 From Monitor] Respiratory 20 20 18 Rate Blood Pressure 113/76 108/73 O2 Sat by Pulse 98 98 Oximetry 11/22/19 08:32 Temperature Pulse Rate Pulse Rate [ From Monitor] Respiratory Rate Blood Pressure O2 Sat by Pulse 98 Oximetry - General Appearance General appearance: well-developed, appears stated age, fatigue EENT: ATNC, PERRL, hearing intact Neck: no JVD, supple Respiratory: Present: Decreased Breath Sounds Cardiology: S1S2 Gastrointestinal: normoactive bowel sounds Integumentary: warm and dry Neurologic: alert and oriented x3, other Musculoskeletal: other (No edema) - Lab 11/22/19 04:59 11/22/19 04:59 Most recent lab results Calcium 8.4 mg/dL (8.4-10.2) 11/22/19 04:59 Phosphorus 2.90 mg/dL (2.5-4.5) 11/22/19 04:59 Urine Creatinine 86.0 mg/dL (0.1-20.0) H 11/20/19 12:57 Urine Creatinine < 4.2 mg/dL (0.1-20.0) 11/20/19 12:57 Urine Sodium 10 mmol/L 11/20/19 12:57 Urine Total Protein 134 mg/dL (5-11.8) H 11/20/19 12:57 Medications & Allergies - Medications Allergies/Adverse Reactions: Allergies No Known Allergies Allergy (Unverified 07/12/14 15:48) Home Medications: Home Medications Medication Instructions Recorded Confirmed Last Taken Type Aspirin [Adult Low Dose Aspirin EC] 81 mg PO DAILY #30 tablet.dr 07/22/16 11/19/19 Unknown Rx Gabapentin 300 mg PO BID #30 07/22/16 11/19/19 Unknown Rx Bumetanide [Bumetanide 2 mg tab] 2 mg PO DAILY 12/25/16 11/19/19 Unknown History Clopidogrel [Plavix] 75 mg PO QDAY tablet 12/27/16 11/19/19 Unknown Rx Rosuvastatin Calcium 20 mg PO DAILY 11/19/19 11/19/19 Unknown History Saxagliptin HCl [Onglyza] 5 mg PO DAILY 11/19/19 11/19/19 Unknown History carvediloL [Coreg] 3.125 mg PO BID 11/19/19 11/19/19 Unknown History Active Medications: Generic Name Dose Route Start Last Admin Trade Name Freq PRN Reason Stop Dose Admin Aspirin 81 mg 11/20/19 10:00 11/22/19 09:31 Halfprin Ec PO 81 mg DAILY CESILIA Administration Atorvastatin Calcium 40 mg 11/19/19 22:00 11/21/19 22:34 Lipitor PO 40 mg QHS CESILIA Administration Benzonatate 100 mg 11/20/19 21:34 11/20/19 22:48 Tessalon Perles PO 100 mg Q6H PRN Administration Cough Clopidogrel Bisulfate 75 mg 11/20/19 10:00 11/22/19 09:31 Plavix PO 75 mg QDAY CESILIA Administration Heparin Sodium (Porcine) 5,000 unit 11/19/19 22:00 11/22/19 09:31 Heparin SUB-Q 5,000 unit Q12HR CESILIA Administration Cefepime HCl 1 gm in 100 mls @ 200 mls/hr 11/20/19 22:00 11/22/19 09:25 Cefepime/Ns 1 Gm/100 Ml IV 200 mls/hr Q12HR CESILIA Administration Protocol Sodium Bicarbonate 75 meq/ 1,075 mls @ 75 mls/hr 11/21/19 07:00 11/22/19 01:22 Sodium Chloride IV 75 mls/hr DIRECT CESILIA Administration Linagliptin 5 mg 11/20/19 10:00 11/22/19 09:31 Tradjenta PO 5 mg QDAY CESILIA Administration Sodium Chloride 10 ml 11/19/19 22:00 11/22/19 09:31 Sodium Chloride Flush Syringe 10 Ml IV 10 ml BID CESILIA Administration Sodium Chloride 10 ml 11/19/19 15:25 Sodium Chloride Flush Syringe 10 Ml IV PRN PRN LINE FLUSH
--- NOTE | 2019-11-22 12:56 | Progress Note ---
Assessment and Plan Sepsis thought secondary to UTI Hx of MT/CAD Hx of Ischemic cardiomyopathy there is no evidence of decompensation Echocardiogram this admission reports 4 chamber dilation, LVEF 15-20%. Hx of Atrial fibrillation, paroxysmal not on anticoagulation due to high bleeding risk in sinus rhythm Presence of DC PPM Chronic kidney disease Anemia Hx of COPD Recommend: Continue medical therapy for his paroxysmal atrial fibrillation, coronary artery disease and ischemic cardiomyopathy. Subjective Date of service: 11/22/19 Principal diagnosis: Acute on CKD Interval history: No interval changes. Objective Vital Signs Temp Pulse Pulse Resp BP Pulse Ox 11/22/19 08:32 98 11/22/19 07:37 97.5 F L 70 18 108/73 98 11/22/19 02:25 98.5 F 69 20 113/76 98 11/22/19 01:51 75 20 11/21/19 22:00 70 11/21/19 19:36 98.7 F 20 95/58 11/21/19 19:00 75 99 11/21/19 14:09 98.2 F 70 20 100/63 100 11/21/19 14:00 69 18 - Physical Examination General: No Apparent Distress HEENT: Positive: PERRL Neck: Positive: trachea midline Cardiac: Positive: Reg Rate and Rhythm Lungs: Positive: Decreased Breath Sounds Extremities: Absent: edema - Labs and Meds CBC 11/22/19 Range/Units 04:59 WBC 5.9 (4.5-11.0) K/mm3 RBC 3.36 L (3.65-5.03) M/mm3 Hgb 9.2 L (11.8-15.2) gm/dl Hct 28.7 L (35.5-45.6) % Plt Count 110 L (140-440) K/mm3 Lymph # 0.5 L (1.2-5.4) K/mm3 [facility] # 0.5 (0.0-0.8) K/mm3 Eos # 0.1 (0.0-0.4) K/mm3 Baso # 0.0 (0.0-0.1) K/mm3 Comprehensive Metabolic Panel 11/22/19 Range/Units 04:59 Sodium 137 (137-145) mmol/L Potassium 4.1 (3.6-5.0) mmol/L Chloride 101.0 (98-107) mmol/L Carbon Dioxide 20 L (22-30) mmol/L BUN 36 H (9-20) mg/dL Creatinine 2.1 H (0.8-1.5) mg/dL Glucose 111 H (75-100) mg/dL Calcium 8.4 (8.4-10.2) mg/dL
--- NOTE | 2019-11-22 12:58 | Progress Note ---
Assessment and Plan Cultures: 11/19/2019 blood culture: No growth 11/19/2019 urine culture: Serratia Rapid Influenza: negative A/P: 79-year-old male with CVA, coronary artery disease, congestive heart failure, diabetes, CKD was brought into the emergency room with altered mental status and fever with: #Severe sepsis, secondary to urinary tract infection: UA with significant pyuria, urine culture with gram-negatives: Serratia. Pneumonia not seen on chest x-ray. Renal ultrasound without obstruction. #Acute renal failure on CKD: Renally dose antibiotics. #Acute encephalopathy: Extensive chronic ischemic injury, no acute abnormality seen on head CT. Likely related to sepsis and UTI. Recs: Continue IV Cefepime 1 g every 12 hours due to renal dysfunction Serratia can be an AmpC beta-lactamase creative producer, so would not de-escalate to lower general cephalosporins Follow up final susceptibility on Serratia to plan d/c antibiotics, would like to do PO abx Candy Wallace MD, FACP [facility] ([facility]) C: [phone] O: [phone] F: [phone] Subjective Date of service: 11/22/19 Principal diagnosis: Acute on CKD Interval history: Denies any complaints. No fever. More awake today, sitting up in bed and eating his lunch. Answering questions. Objective - Exam Narrative Exam: Physical Exam: Constitutional: awake, alert, no distress. Head, Ears, Nose: Normocephalic, atraumatic. External ears, nose normal Eyes: Conjunctivae/corneas clear. No icterus. No ptosis. Neck: Supple, no meningeal signs Cardiovascular: S1, S2 normal. Respiratory: Good air entry, clear to auscultation bilaterally GI: Soft, non-tender; bowel sounds normal. No peritoneal signs Musculoskeletal: No pedal edema, no cyanosis. Skin: No rash or abscess Hem/Lymphatic: No palpable cervical or supraclavicular nodes. No lymphangitis Psych: Calm, no agitation. Neurological: awake, alert, no distress. answering questions - Constitutional Vitals: Vital Signs Temp Pulse Resp BP Pulse Ox 97.5 F L 70 18 108/73 98 11/22/19 07:37 11/22/19 07:37 11/22/19 07:37 11/22/19 07:37 11/22/19 08:32 Temperature -Last 24 Hours Temperature 97.5 F Temperature 98.5 F Temperature 98.7 F Temperature 98.2 F - Labs CBC & Chem 7: 11/22/19 04:59 11/22/19 04:59 Labs: Abnormal lab results 11/21/19 11/21/19 11/22/19 Range/Units 16:29 21:26 04:59 RBC 3.36 L (3.65-5.03) M/mm3 Hgb 9.2 L (11.8-15.2) gm/dl Hct 28.7 L (35.5-45.6) % MCH 27 L (28-32) pg RDW 16.5 H (13.2-15.2) % Plt Count 110 L (140-440) K/mm3 Lymph % (Auto) 9.2 L (13.4-35.0) % [place] % (Auto) 8.8 H (0.0-7.3) % Lymph # 0.5 L (1.2-5.4) K/mm3 Seg Neutrophils % 79.9 H (40.0-70.0) % Carbon Dioxide (22-30) mmol/L BUN (9-20) mg/dL Creatinine (0.8-1.5) mg/dL Glucose (75-100) mg/dL POC Glucose 208 H 173 H (70-105) 11/22/19 11/22/19 11/22/19 Range/Units 04:59 07:48 11:49 RBC (3.65-5.03) M/mm3 Hgb (11.8-15.2) gm/dl Hct (35.5-45.6) % MCH (28-32) pg RDW (13.2-15.2) % Plt Count (140-440) K/mm3 Lymph % (Auto) (13.4-35.0) % [place] % (Auto) (0.0-7.3) % Lymph # (1.2-5.4) K/mm3 Seg Neutrophils % (40.0-70.0) % Carbon Dioxide 20 L (22-30) mmol/L BUN 36 H (9-20) mg/dL Creatinine 2.1 H (0.8-1.5) mg/dL Glucose 111 H (75-100) mg/dL POC Glucose 113 H 260 H (70-105)
--- NOTE | 2019-11-22 13:52 | Progress Note ---
Assessment and Plan Assessment and plan: Sepsis due to UTI Severe sepsis: Continue IV antibiotic therapywith Cefepime monitor urine output every shift, serial lactic blood cultures X 2, drawn maintain mean arterial pressure above 65, IV pressor support as clinically indicated. Now weaned off Levophed Consulted ID, following ID recommends to wait on sensitivity to determine Antibiotic to discharge home Acute kidney injury (CHRIS) with acute tubular necrosis (ATN) IV fluid resuscitation therapy, monitor urine output every shift, Nephrology consult placed in the emergency department. Improving Cr Hyponatremia Monitor Metabolic acidosis IV fluid resuscitation therapy, treat sepsis, monitor urine output every shift, serial lactic acid levels, Toxic encephalopathy CT head, neuro check, aspiration precaution, fall precautions, Diabetes mellitus type 2 Sliding scale insulin diet, Accu-Chek, consistent carbohydrate diet when awake and alert only, hypoglycemia protocol. Chronic systolic CHF (congestive heart failure) Monitor fluid balance, cardiology consult placed in ED, Cardiology following supportive care, oxygen, nebulizer therapy, afterload reduction as tolerated, UTI (urinary tract infection) IV antibiotic therapy, urinalysis, DVT prophylaxis SCD to bilateral lower extremities while in bed, prophylactic heparin. Advance care planning Patient is full code, disease education conducted, +30 minutes. History Interval history: Presented with fever No more fever since 11/18 Gen weakness Hospitalist Physical - Physical exam Narrative exam: GEN: Not in acute distress, lying in bed, HEENT: Normocephalic, atraumatic, Neck: supple, No JVD Lungs: Clear , no crackles, heart;S1 and S2 reg, no murmurs, rubs or gallop Abd:soft, non tender, non distended, normal bowel sounds Ext: No edema, no clubbing, no cyanosis, Neuro:Awake, alert,oriented X 3, no focal neurological signs - Constitutional Vitals: Temp Pulse Resp BP Pulse Ox 97.5 F L 70 18 108/73 98 11/22/19 07:37 11/22/19 07:37 11/22/19 07:37 11/22/19 07:37 11/22/19 08:32 General appearance: Present: no acute distress Results - Labs CBC & Chem 7: 11/22/19 04:59 11/22/19 04:59 Labs: Laboratory Last Values WBC 5.9 K/mm3 (4.5-11.0) 11/22/19 04:59 RBC 3.36 M/mm3 (3.65-5.03) L 11/22/19 04:59 Hgb 9.2 gm/dl (11.8-15.2) L 11/22/19 04:59 Hct 28.7 % (35.5-45.6) L 11/22/19 04:59 MCV 85 fl (84-94) 11/22/19 04:59 MCH 27 pg (28-32) L 11/22/19 04:59 MCHC 32 % (32-34) 11/22/19 04:59 RDW 16.5 % (13.2-15.2) H 11/22/19 04:59 Plt Count 110 K/mm3 (140-440) L 11/22/19 04:59 Lymph % (Auto) 9.2 % (13.4-35.0) L 11/22/19 04:59 [place] % (Auto) 8.8 % (0.0-7.3) H 11/22/19 04:59 Eos % (Auto) 1.8 % (0.0-4.3) 11/22/19 04:59 Baso % (Auto) 0.3 % (0.0-1.8) 11/22/19 04:59 Lymph # 0.5 K/mm3 (1.2-5.4) L 11/22/19 04:59 [place] # 0.5 K/mm3 (0.0-0.8) 11/22/19 04:59 Eos # 0.1 K/mm3 (0.0-0.4) 11/22/19 04:59 Baso # 0.0 K/mm3 (0.0-0.1) 11/22/19 04:59 Seg Neutrophils % 79.9 % (40.0-70.0) H 11/22/19 04:59 Seg Neutrophils # 4.7 K/mm3 (1.8-7.7) 11/22/19 04:59 Sodium 137 mmol/L (137-145) 11/22/19 04:59 Potassium 4.1 mmol/L (3.6-5.0) 11/22/19 04:59 Chloride 101.0 mmol/L (98-107) 11/22/19 04:59 Carbon Dioxide 20 mmol/L (22-30) L 11/22/19 04:59 Anion Gap 20 mmol/L 11/22/19 04:59 BUN 36 mg/dL (9-20) H 11/22/19 04:59 Creatinine 2.1 mg/dL (0.8-1.5) H 11/22/19 04:59 Estimated GFR 37 ml/min 11/22/19 04:59 BUN/Creatinine Ratio 17 % 11/22/19 04:59 Glucose 111 mg/dL (75-100) H 11/22/19 04:59 POC Glucose 260 (70-105) H 11/22/19 11:49 Lactic Acid 1.20 mmol/L (0.7-2.0) 11/19/19 16:06 Calcium 8.4 mg/dL (8.4-10.2) 11/22/19 04:59 Phosphorus 2.90 mg/dL (2.5-4.5) 11/22/19 04:59 Iron 33 ug/dL (49-181) L 11/21/19 04:30 TIBC 186 mcg/dL (250-450) L 11/21/19 04:30 Ferritin 266.3 ng/mL (13.0-400.0) 11/21/19 04:30 Total Bilirubin 0.90 mg/dL (0.1-1.2) 11/19/19 12:17 AST 18 units/L (5-40) 11/19/19 12:17 ALT 8 units/L (7-56) 11/19/19 12:17 Alkaline Phosphatase 111 units/L (35-129) 11/19/19 12:17 Ammonia 63.0 umol/L (25-60) H 11/19/19 12:17 Total Creatine Kinase 463 units/L (55-170) H 11/20/19 10:16 Troponin T 0.028 ng/mL (0.00-0.029) 11/20/19 10:16 Total Protein 8.0 g/dL (6.3-8.2) 11/19/19 12:17 Albumin 4.0 g/dL (3.9-5) 11/19/19 12:17 Albumin/Globulin Ratio 1.0 % 11/19/19 12:17 TSH 1.390 mlU/mL (0.270-4.200) 11/19/19 12:17 Urine Color Yellow (Yellow) 11/19/19 13:30 Urine Turbidity Cloudy (Clear) 11/19/19 13:30 Urine pH 5.0 (5.0-7.0) 11/19/19 13:30 Ur Specific [place] 1.012 (1.003-1.030) 11/19/19 13:30 Urine Protein 100 mg/dl mg/dL (Negative) 11/19/19 13:30 Urine Glucose (UA) Neg mg/dL (Negative) 11/19/19 13:30 Urine Ketones Neg mg/dL (Negative) 11/19/19 13:30 Urine Blood Mod (Negative) 11/19/19 13:30 Urine Nitrite Neg (Negative) 11/19/19 13:30 Urine Bilirubin Neg (Negative) 11/19/19 13:30 Urine Urobilinogen < 2.0 mg/dL (<2.0) 11/19/19 13:30 Ur Leukocyte Esterase Lg (Negative) 11/19/19 13:30 Urine WBC (Auto) > 182.0 /HPF (0.0-6.0) H 11/19/19 13:30 Urine RBC (Auto) 6.0 /HPF (0.0-6.0) 11/19/19 13:30 U Epithel Cells (Auto) < 1.0 /HPF (0-13.0) 11/19/19 13:30 Urine Bacteria (Auto) 1+ /HPF (Negative) 11/19/19 13:30 Urine WBC Clumps 3+ /HPF 11/19/19 13:30 Urine Eosinophils None seen (None Seen) 11/20/19 12:57 Urine Creatinine 86.0 mg/dL (0.1-20.0) H 11/20/19 12:57 Urine Creatinine < 4.2 mg/dL (0.1-20.0) 11/20/19 12:57 Protein/Creatinin Ratio 1.56 11/20/19 12:57 Urine Sodium 10 mmol/L 11/20/19 12:57 Urine Total Protein 134 mg/dL (5-11.8) H 11/20/19 12:57 Influenza A (Rapid) Negative (Negative) 11/19/19 Unknown Influenza B (Rapid) Negative (Negative) 11/19/19 Unknown Blood Type O POSITIVE 11/19/19 16:06 Antibody Screen Negative 11/19/19 16:06 Noonan/IV: Voiding Method Urinal IV Catheter Type [Right Triple Lumen Cath Internal Jugular] IV Catheter Type [Right Hand] Peripheral IV Active Medications - Current Medications Current Medications: Generic Name Dose Route Start Last Admin Trade Name Freq PRN Reason Stop Dose Admin Aspirin 81 mg 11/20/19 10:00 11/22/19 09:31 Halfprin Ec PO 81 mg DAILY CESILIA Administration Atorvastatin Calcium 40 mg 11/19/19 22:00 11/21/19 22:34 Lipitor PO 40 mg QHS CESILIA Administration Benzonatate 100 mg 11/20/19 21:34 11/20/19 22:48 Tessalon Perles PO 100 mg Q6H PRN Administration Cough Clopidogrel Bisulfate 75 mg 11/20/19 10:00 11/22/19 09:31 Plavix PO 75 mg QDAY CESILIA Administration Heparin Sodium (Porcine) 5,000 unit 11/19/19 22:00 11/22/19 09:31 Heparin SUB-Q 5,000 unit Q12HR CESILIA Administration Cefepime HCl 1 gm in 100 mls @ 200 mls/hr 11/20/19 22:00 11/22/19 09:25 Cefepime/Ns 1 Gm/100 Ml IV 200 mls/hr Q12HR CESILIA Administration Protocol Sodium Bicarbonate 75 meq/ 1,075 mls @ 75 mls/hr 11/21/19 07:00 11/22/19 01:22 Sodium Chloride IV 75 mls/hr DIRECT CESILIA Administration Linagliptin 5 mg 11/20/19 10:00 11/22/19 09:31 Tradjenta PO 5 mg QDAY CESILIA Administration Sodium Chloride 10 ml 11/19/19 22:00 11/22/19 09:31 Sodium Chloride Flush Syringe 10 Ml IV 10 ml BID CESILIA Administration Sodium Chloride 10 ml 11/19/19 15:25 Sodium Chloride Flush Syringe 10 Ml IV PRN PRN LINE FLUSH Nutrition/Malnutrition Assess - Dietary Evaluation Nutrition/Malnutrition Findings: Nutrition Notes Start: 11/21/19 15:21 Freq: Status: Active Protocol: Document 11/21/19 15:21 CHELSEA (Rec: 11/21/19 15:26 CHELSEA [email or web address]) Nutrition Notes Need for 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 Pt unsure of wt loss and reports good appetite at this time. He has consumed 88 % of the last two meals. Burn Absent Trauma Absent Current % PO Good (75-100%) Minimum of two criteria No physical signs of malnutrition Is patient on ventilator? No Is Patient Ambulatory and/or Out of Bed No REE-(Whitney Castrejon-confined to bed) 3113.204 Calculation Used for Recommendations HarneySt Castrejon Additional Notes Pro needs 0.8-1.2g/k-99g/ day Fluid needs per MD Nutrition Intervention Follow-Up By: 11/26/19 Additional Comments F/U: stable intakes
[2019-11-22] MEDS ORDERED: DEXTROSE 50% IN WATER (25GM) 50 ML SYRINGE IV PRN (14:38)
[2019-11-22] MEDS: INSULIN LISPRO 100 UNIT/ML SUB-Q SCH (17:00)
[2019-11-23 05:05] LABS: Basophils % (Auto) 0.3 % (0.0-1.8); Eosinophils # (Auto) 0.2 K/mm3 (0.0-0.4); Eosinophils % (Auto) 3.7 % (0.0-4.3); Hematocrit 25.6 % (35.5-45.6); Hemoglobin 8.6 gm/dl (11.8-15.2); Lymphocytes # (Auto) 0.4 K/mm3 (1.2-5.4); Lymphocytes % (Auto) 8.2 % (13.4-35.0); Mean Corpuscular HGB Conc 34 % (32-34); Mean Corpuscular Volume 84 fl (84-94); Monocytes # (Auto) 0.5 K/mm3 (0.0-0.8); Monocytes % (Auto) 10.4 % (0.0-7.3); Platelet Count 104 K/mm3 (140-440); Red Blood Count 3.05 M/mm3 (3.65-5.03); Red Cell Distribution Width 16.5 % (13.2-15.2)
[2019-11-23] MEDS: INSULIN LISPRO 100 UNIT/ML SUB-Q SCH ×4 (05:08→17:01)
[2019-11-23 05:29] LABS: Calcium 8.4 mg/dL (8.4-10.2)
--- NOTE | 2019-11-23 08:55 | Progress Note ---
Assessment and Plan Sepsis thought secondary to UTI Hx of CO/CAD Hx of Ischemic cardiomyopathy there is no evidence of decompensation Echocardiogram this admission reports 4 chamber dilation, LVEF 15-20%. Hx of Atrial fibrillation, paroxysmal not on anticoagulation due to high bleeding risk in sinus rhythm Presence of DC PPM Chronic kidney disease Anemia Hx of COPD Recommend: Continue medical therapy for his paroxysmal atrial fibrillation, coronary artery disease and ischemic cardiomyopathy. Subjective Date of service: 11/23/19 Principal diagnosis: Acute on CKD Interval history: Patient is resting in bed comfortably. No interval changes. Objective Vital Signs Temp Pulse Resp BP Pulse Ox 11/23/19 07:25 98.0 F 71 112/82 100 11/23/19 03:29 98.5 F 67 20 106/73 100 11/22/19 20:01 98.5 F 70 20 104/73 99 11/22/19 13:27 97.9 F 69 18 95/69 99 - Physical Examination General: No Apparent Distress HEENT: Positive: PERRL Neck: Positive: trachea midline Cardiac: Positive: Other (paced) Lungs: Positive: Decreased Breath Sounds Extremities: Absent: edema - Labs and Meds CBC 11/23/19 Range/Units 04:45 WBC 5.3 (4.5-11.0) K/mm3 RBC 3.05 L (3.65-5.03) M/mm3 Hgb 8.6 L (11.8-15.2) gm/dl Hct 25.6 L (35.5-45.6) % Plt Count 104 L (140-440) K/mm3 Lymph # 0.4 L (1.2-5.4) K/mm3 [place] # 0.5 (0.0-0.8) K/mm3 Eos # 0.2 (0.0-0.4) K/mm3 Baso # 0.0 (0.0-0.1) K/mm3 Comprehensive Metabolic Panel 11/23/19 Range/Units 04:45 Sodium 141 (137-145) mmol/L Potassium 3.6 (3.6-5.0) mmol/L Chloride 104.7 (98-107) mmol/L Carbon Dioxide 22 (22-30) mmol/L BUN 27 H (9-20) mg/dL Creatinine 1.9 H (0.8-1.5) mg/dL Glucose 106 H (75-100) mg/dL Calcium 8.4 (8.4-10.2) mg/dL
[2019-11-23] MEDS: LINAGLIPTIN 5 MG TAB PO SCH (09:31)
[2019-11-23] MEDS: CEFEPIME/NS 1 GM/100 ML 1 GM/100 ML BAG IV SCH (09:31)
[2019-11-23] MEDS: CLOPIDOGREL 75 MG TAB PO SCH (09:31)
[2019-11-23] MEDS: ASPIRIN EC 81 MG TAB PO SCH (09:31)
[2019-11-23] MEDS: HEPARIN 5,000 UNIT/1 ML VIAL SUB-Q SCH (09:32)
[2019-11-23] MEDS: BENZONATATE 100 MG CAP PO PRN ×2 (09:37→17:18)
--- NOTE | 2019-11-23 14:59 | Progress Note ---
Assessment and Plan Cultures: 11/19/2019 blood culture: No growth 11/19/2019 urine culture: Serratia Rapid Influenza: negative A/P: 79-year-old male with CVA, coronary artery disease, congestive heart failure, diabetes, CKD was brought into the emergency room with altered mental status and fever with: #Severe sepsis, secondary to urinary tract infection: UA with significant pyuria, urine culture with gram-negatives: Serratia. Pneumonia not seen on chest x-ray. Renal ultrasound without obstruction. #Acute renal failure on CKD: Renally dose antibiotics. #Acute encephalopathy: Extensive chronic ischemic injury, no acute abnormality seen on head CT. Likely related to sepsis and UTI. Recs: Serratia susceptibilities still not available. Patient has had significant improvement. Will give one dose of PO Fosfomycin today and then OK for discharge from ID standpoint. d/w Dr. Mendez. Candy Wallace MD, FACP [facility] ([facility]) C: [phone] O: [phone] F: [phone] Subjective Date of service: 11/23/19 Principal diagnosis: Acute on CKD Interval history: Denies any complaints. No fever. Answering questions. Objective - Exam Narrative Exam: Physical Exam: Constitutional: awake, alert, no distress. Head, Ears, Nose: Normocephalic, atraumatic. External ears, nose normal Eyes: Conjunctivae/corneas clear. No icterus. No ptosis. Neck: Supple, no meningeal signs Cardiovascular: S1, S2 normal. Respiratory: Good air entry, clear to auscultation bilaterally GI: Soft, non-tender; bowel sounds normal. No peritoneal signs. External cath + Musculoskeletal: No pedal edema, no cyanosis. Skin: No rash or abscess Hem/Lymphatic: No palpable cervical or supraclavicular nodes. No lymphangitis Psych: Calm, no agitation. Neurological: awake, alert, no distress. answering questions - Constitutional Vitals: Vital Signs Temp Pulse Resp BP Pulse Ox 97.6 F 70 20 107/63 93 11/23/19 13:56 11/23/19 13:56 11/23/19 13:56 11/23/19 13:56 11/23/19 13:56 Temperature -Last 24 Hours Temperature 97.6 F Temperature 98.0 F Temperature 98.5 F Temperature 98.5 F - Labs CBC & Chem 7: 11/23/19 04:45 11/23/19 04:45 Labs: Abnormal lab results 11/22/19 11/22/19 11/23/19 Range/Units 16:25 21:59 04:45 RBC 3.05 L (3.65-5.03) M/mm3 Hgb 8.6 L (11.8-15.2) gm/dl Hct 25.6 L (35.5-45.6) % RDW 16.5 H (13.2-15.2) % Plt Count 104 L (140-440) K/mm3 Lymph % (Auto) 8.2 L (13.4-35.0) % [place] % (Auto) 10.4 H (0.0-7.3) % Lymph # 0.4 L (1.2-5.4) K/mm3 Seg Neutrophils % 77.4 H (40.0-70.0) % BUN (9-20) mg/dL Creatinine (0.8-1.5) mg/dL Glucose (75-100) mg/dL POC Glucose 122 H 121 H (70-105) 11/23/19 11/23/19 11/23/19 Range/Units 04:45 07:35 11:43 RBC (3.65-5.03) M/mm3 Hgb (11.8-15.2) gm/dl Hct (35.5-45.6) % RDW (13.2-15.2) % Plt Count (140-440) K/mm3 Lymph % (Auto) (13.4-35.0) % [place] % (Auto) (0.0-7.3) % Lymph # (1.2-5.4) K/mm3 Seg Neutrophils % (40.0-70.0) % BUN 27 H (9-20) mg/dL Creatinine 1.9 H (0.8-1.5) mg/dL Glucose 106 H (75-100) mg/dL POC Glucose 114 H 138 H (70-105)
--- NOTE | 2019-11-23 15:47 | Discharge Summary ---
Providers - Providers Date of Admission: 11/19/19 15:25 Date of discharge: 11/23/19 Attending physician: KATLIN DURAN 11/19/19 17:27 Consult to Physician [CONS] Routine Comment: Consulting Provider: MARCIE METZ Physician Instructions: Reason For Exam: ed 11/19/19 17:28 Consult to Cardiology [CONS] Routine Consulting Provider: VINITA MARCOS Reason For Exam: chf 11/20/19 07:49 Consult to Physician [CONS] Routine Comment: Consulting Provider: MI WESLEY Physician Instructions: Reason For Exam: Sepsis Primary care physician: IRIS LEBLANC MD Hospitalization Condition: Fair Disposition: DC-01 TO HOME OR SELFCARE Core Measure Documentation - Palliative Care Palliative Care/ Comfort Measures: Not Applicable - Core Measures Any of the following diagnoses?: none Exam - Constitutional Vitals: Temp Pulse Resp BP Pulse Ox 97.6 F 70 20 107/63 93 11/23/19 13:56 11/23/19 13:56 11/23/19 13:56 11/23/19 13:56 11/23/19 13:56 Plan Activity: advance as tolerated Diet: low fat, low cholesterol, low salt Plan of Treatment: 1.Follow up with PCP in 1 week. 2.Follow up with Dr. Metz in 1 week. Follow up with: IRIS LEBLANC MD [Primary Care Provider] - 3-5 Days
[2019-11-23] MEDS ORDERED: FOSFOMYCIN TROMETHAMINE 3 GM PACKET PO ONE (16:00)
--- NOTE | 2019-11-23 17:47 | Progress Note ---
Assessment and Plan Assessment: Severe sepsis secondary to UTI CHRIS on CKD possibly prerenal azotemia vs. ischemic ATN from hypotension Ischemic cardiomyopathy Toxic encephalopathy Anemia in CKD Non-Anion Gap Metabolic acidosis Hx of Paroxysmal Atrial Fibrillation Hx of CAD/MT Plan: - Renal function reviewed, SCr level was 1.9 today, yesterday's SCr level was 2.1, stable - SCr in 2017 was 1.9, possibly progression of CKD vs. CHRIS - On 0.45% NS + 75 mEq sodium bicarbonate infusion at 75 ml/hr - CXR negative for pulmonary edema, monitor volume status closely - Low urine sodium suggestive of prerenal etiology - Calculated protein to cr ratio 1.5 g, urine eosinophils negative - Renal US reviewed- medical renal disease - Renally dose medications - Needs strict intake and output - Noonan Catheter: No - Patient awaiting family member to pick him up, he is being discharged today -Patient to f/u in our office in 7 days of discharge: [facility]: [address] [place] [address], [place] [address] Subjective Date of service: 11/23/19 Principal diagnosis: Acute on CKD Interval history: Patient awaiting 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 Objective - Vital Signs Vital signs: Vital Signs - 12hr 11/23/19 11/23/19 07:25 13:56 Temperature 98.0 F 97.6 F Pulse Rate 71 70 Respiratory 20 Rate Blood Pressure 112/82 107/63 O2 Sat by Pulse 100 93 Oximetry - General Appearance General appearance: well-developed, fatigue EENT: ATNC Neck: no JVD, supple Respiratory: Present: Decreased Breath Sounds Cardiology: S1S2 Gastrointestinal: normoactive bowel sounds Integumentary: warm and dry Neurologic: other (Awake and alert) Musculoskeletal: decreased ROM - Lab 11/23/19 04:45 11/23/19 04:45 Most recent lab results Calcium 8.4 mg/dL (8.4-10.2) 11/23/19 04:45 Phosphorus 2.70 mg/dL (2.5-4.5) 11/23/19 04:45 Urine Creatinine 86.0 mg/dL (0.1-20.0) H 11/20/19 12:57 Urine Creatinine < 4.2 mg/dL (0.1-20.0) 11/20/19 12:57 Urine Sodium 10 mmol/L 11/20/19 12:57 Urine Total Protein 134 mg/dL (5-11.8) H 11/20/19 12:57 Medications & Allergies - Medications Allergies/Adverse Reactions: Allergies No Known Allergies Allergy (Unverified 07/12/14 15:48) Home Medications: Home Medications Medication Instructions Recorded Confirmed Last Taken Type Aspirin [Adult Low Dose Aspirin EC] 81 mg PO DAILY #30 tablet.dr 07/22/16 11/19/19 Unknown Rx Gabapentin 300 mg PO BID #30 07/22/16 11/19/19 Unknown Rx Clopidogrel [Plavix] 75 mg PO QDAY tablet 12/27/16 11/19/19 Unknown Rx Rosuvastatin Calcium 20 mg PO DAILY 11/19/19 11/19/19 Unknown History Saxagliptin HCl [Onglyza] 5 mg PO DAILY 11/19/19 11/19/19 Unknown History carvediloL [Coreg] 3.125 mg PO BID 11/19/19 11/19/19 Unknown History Active Medications: Generic Name Dose Route Start Last Admin Trade Name Freq PRN Reason Stop Dose Admin Aspirin 81 mg 11/20/19 10:00 11/23/19 09:31 Halfprin Ec PO 81 mg DAILY CESILIA Administration Atorvastatin Calcium 40 mg 11/19/19 22:00 11/22/19 23:54 Lipitor PO 40 mg QHS CESILIA Administration Benzonatate 100 mg 11/20/19 21:34 11/23/19 17:18 Tessalon Perles PO 100 mg Q6H PRN Administration Cough Clopidogrel Bisulfate 75 mg 11/20/19 10:00 11/23/19 09:31 Plavix PO 75 mg QDAY CESILIA Administration Dextrose 50 ml 11/22/19 14:38 D50w (25gm) Syringe IV Q30MIN PRN Hypoglycemia Protocol Heparin Sodium (Porcine) 5,000 unit 11/19/19 22:00 11/23/19 09:32 Heparin SUB-Q 5,000 unit Q12HR CESILIA Administration Sodium Bicarbonate 75 meq/ 1,075 mls @ 75 mls/hr 11/21/19 07:00 11/22/19 19:21 Sodium Chloride IV 75 mls/hr DIRECT CESILIA Administration Insulin Human Lispro 0 unit 11/22/19 16:30 11/23/19 17:01 Humalog SUB-Q Not Given ACHS CESILIA Protocol Linagliptin 5 mg 11/20/19 10:00 11/23/19 09:31 Tradjenta PO 5 mg QDAY CESILIA Administration Sodium Chloride 10 ml 11/19/19 22:00 11/23/19 09:34 Sodium Chloride Flush Syringe 10 Ml IV 10 ml BID CESILIA Administration Sodium Chloride 10 ml 11/19/19 15:25 Sodium Chloride Flush Syringe 10 Ml IV PRN PRN LINE FLUSH
--- NOTE | 2019-11-23 22:52 | Progress Note ---
Assessment and Plan Assessment and plan: Sepsis due to UTI Severe sepsis: Continue IV antibiotic therapywith Cefepime monitor urine output every shift, serial lactic blood cultures X 2, drawn maintain mean arterial pressure above 65, IV pressor support as clinically indicated. Now weaned off Levophed Consulted ID, following ID recommends to wait on sensitivity to determine Antibiotic to discharge home Acute kidney injury (CHRIS) with acute tubular necrosis (ATN) IV fluid resuscitation therapy, monitor urine output every shift, Nephrology consult placed in the emergency department. Improving Cr Hyponatremia Monitor Metabolic acidosis IV fluid resuscitation therapy, treat sepsis, monitor urine output every shift, serial lactic acid levels, Toxic encephalopathy CT head, neuro check, aspiration precaution, fall precautions, Diabetes mellitus type 2 Sliding scale insulin diet, Accu-Chek, consistent carbohydrate diet when awake and alert only, hypoglycemia protocol. Chronic systolic CHF (congestive heart failure) Monitor fluid balance, cardiology consult placed in ED, Cardiology following supportive care, oxygen, nebulizer therapy, afterload reduction as tolerated, UTI (urinary tract infection) IV antibiotic therapy, urinalysis, DVT prophylaxis SCD to bilateral lower extremities while in bed, prophylactic heparin. Advance care planning Patient is full code, disease education conducted, 11/22 patient stable for discharge, orders put in put Nurse unable to contact family, called daughter multiple times History Interval history: Presented with fever No more fever since 11/18 Gen weakness Hospitalist Physical - Physical exam Narrative exam: GEN: Not in acute distress, lying in bed, HEENT: Normocephalic, atraumatic, Neck: supple, No JVD Lungs: Clear , no crackles, heart;S1 and S2 reg, no murmurs, rubs or gallop Abd:soft, non tender, non distended, normal bowel sounds Ext: No edema, no clubbing, no cyanosis, Neuro:Awake, alert,oriented X 3, no focal neurological signs - Constitutional Vitals: Temp Pulse Resp BP Pulse Ox 98.4 F 72 20 101/64 98 11/23/19 20:02 11/23/19 20:02 11/23/19 20:02 11/23/19 20:02 11/23/19 20:02 General appearance: Present: no acute distress Results - Labs CBC & Chem 7: 11/24/19 08:40 11/24/19 08:40 Labs: Laboratory Last Values WBC 5.3 K/mm3 (4.5-11.0) 03/13/20 04:45 RBC 3.05 M/mm3 (3.65-5.03) L 11/23/19 04:45 Hgb 8.6 gm/dl (11.8-15.2) L 11/23/19 04:45 Hct 25.6 % (35.5-45.6) L 11/23/19 04:45 MCV 84 fl (84-94) 11/23/19 04:45 MCH 28 pg (28-32) 11/23/19 04:45 MCHC 34 % (32-34) 11/23/19 04:45 RDW 16.5 % (13.2-15.2) H 11/23/19 04:45 Plt Count 104 K/mm3 (140-440) L 11/23/19 04:45 Lymph % (Auto) 8.2 % (13.4-35.0) L 11/23/19 04:45 Early % (Auto) 10.4 % (0.0-7.3) H 11/23/19 04:45 Eos % (Auto) 3.7 % (0.0-4.3) 11/23/19 04:45 Baso % (Auto) 0.3 % (0.0-1.8) 11/23/19 04:45 Lymph # 0.4 K/mm3 (1.2-5.4) L 11/23/19 04:45 Early # 0.5 K/mm3 (0.0-0.8) 11/23/19 04:45 Eos # 0.2 K/mm3 (0.0-0.4) 11/23/19 04:45 Baso # 0.0 K/mm3 (0.0-0.1) 11/23/19 04:45 Seg Neutrophils % 77.4 % (40.0-70.0) H 11/23/19 04:45 Seg Neutrophils # 4.1 K/mm3 (1.8-7.7) 11/23/19 04:45 Sodium 141 mmol/L (137-145) 11/23/19 04:45 Potassium 3.6 mmol/L (3.6-5.0) 11/23/19 04:45 Chloride 104.7 mmol/L (98-107) 11/23/19 04:45 Carbon Dioxide 22 mmol/L (22-30) 11/23/19 04:45 Anion Gap 18 mmol/L 11/23/19 04:45 BUN 27 mg/dL (9-20) H 11/23/19 04:45 Creatinine 1.9 mg/dL (0.8-1.5) H 11/23/19 04:45 Estimated GFR 42 ml/min 11/23/19 04:45 BUN/Creatinine Ratio 14 % 11/23/19 04:45 Glucose 106 mg/dL (75-100) H 11/23/19 04:45 POC Glucose 121 (70-105) H 11/23/19 20:49 Lactic Acid 1.20 mmol/L (0.7-2.0) 11/19/19 16:06 Calcium 8.4 mg/dL (8.4-10.2) 11/23/19 04:45 Phosphorus 2.70 mg/dL (2.5-4.5) 11/23/19 04:45 Iron 33 ug/dL (49-181) L 11/21/19 04:30 TIBC 186 mcg/dL (250-450) L 11/21/19 04:30 Ferritin 266.3 ng/mL (13.0-400.0) 11/21/19 04:30 Total Bilirubin 0.90 mg/dL (0.1-1.2) 11/19/19 12:17 AST 18 units/L (5-40) 11/19/19 12:17 ALT 8 units/L (7-56) 11/19/19 12:17 Alkaline Phosphatase 111 units/L (35-129) 11/19/19 12:17 Ammonia 63.0 umol/L (25-60) H 11/19/19 12:17 Total Creatine Kinase 463 units/L (55-170) H 11/20/19 10:16 Troponin T 0.028 ng/mL (0.00-0.029) 11/20/19 10:16 Total Protein 8.0 g/dL (6.3-8.2) 11/19/19 12:17 Albumin 4.0 g/dL (3.9-5) 11/19/19 12:17 Albumin/Globulin Ratio 1.0 % 11/19/19 12:17 TSH 1.390 mlU/mL (0.270-4.200) 11/19/19 12:17 Urine Color Yellow (Yellow) 11/19/19 13:30 Urine Turbidity Cloudy (Clear) 11/19/19 13:30 Urine pH 5.0 (5.0-7.0) 11/19/19 13:30 Ur Specific [place] 1.012 (1.003-1.030) 11/19/19 13:30 Urine Protein 100 mg/dl mg/dL (Negative) 11/19/19 13:30 Urine Glucose (UA) Neg mg/dL (Negative) 11/19/19 13:30 Urine Ketones Neg mg/dL (Negative) 11/19/19 13:30 Urine Blood Mod (Negative) 11/19/19 13:30 Urine Nitrite Neg (Negative) 11/19/19 13:30 Urine Bilirubin Neg (Negative) 11/19/19 13:30 Urine Urobilinogen < 2.0 mg/dL (<2.0) 11/19/19 13:30 Ur Leukocyte Esterase Lg (Negative) 11/19/19 13:30 Urine WBC (Auto) > 182.0 /HPF (0.0-6.0) H 11/19/19 13:30 Urine RBC (Auto) 6.0 /HPF (0.0-6.0) 11/19/19 13:30 U Epithel Cells (Auto) < 1.0 /HPF (0-13.0) 11/19/19 13:30 Urine Bacteria (Auto) 1+ /HPF (Negative) 11/19/19 13:30 Urine WBC Clumps 3+ /HPF 11/19/19 13:30 Urine Eosinophils None seen (None Seen) 11/20/19 12:57 Urine Creatinine 86.0 mg/dL (0.1-20.0) H 11/20/19 12:57 Urine Creatinine < 4.2 mg/dL (0.1-20.0) 11/20/19 12:57 Protein/Creatinin Ratio 1.56 11/20/19 12:57 Urine Sodium 10 mmol/L 11/20/19 12:57 Urine Total Protein 134 mg/dL (5-11.8) H 11/20/19 12:57 Influenza A (Rapid) Negative (Negative) 11/19/19 Unknown Influenza B (Rapid) Negative (Negative) 11/19/19 Unknown Blood Type O POSITIVE 11/19/19 16:06 Antibody Screen Negative 11/19/19 16:06 Noonan/IV: Voiding Method Condom Catheter IV Catheter Type [Right Triple Lumen Cath Internal Jugular] IV Catheter Type [Right Hand] Peripheral IV Active Medications - Current Medications Current Medications: Generic Name Dose Route Start Last Admin Trade Name Freq PRN Reason Stop Dose Admin Aspirin 81 mg 11/20/19 10:00 11/23/19 09:31 Halfprin Ec PO 81 mg DAILY CESILIA Administration Atorvastatin Calcium 40 mg 11/19/19 22:00 11/22/19 23:54 Lipitor PO 40 mg QHS CESILIA Administration Benzonatate 100 mg 11/20/19 21:34 11/23/19 17:18 Tessalon Perles PO 100 mg Q6H PRN Administration Cough Clopidogrel Bisulfate 75 mg 11/20/19 10:00 11/23/19 09:31 Plavix PO 75 mg QDAY CESILIA Administration Dextrose 50 ml 11/22/19 14:38 D50w (25gm) Syringe IV Q30MIN PRN Hypoglycemia Protocol Heparin Sodium (Porcine) 5,000 unit 11/19/19 22:00 11/23/19 09:32 Heparin SUB-Q 5,000 unit Q12HR CESILIA Administration Sodium Bicarbonate 75 meq/ 1,075 mls @ 75 mls/hr 11/21/19 07:00 11/22/19 19:21 Sodium Chloride IV 75 mls/hr DIRECT CESILIA Administration Insulin Human Lispro 0 unit 11/22/19 16:30 11/23/19 17:01 Humalog SUB-Q Not Given ACHS CESILIA Protocol Linagliptin 5 mg 11/20/19 10:00 11/23/19 09:31 Tradjenta PO 5 mg QDAY CESILIA Administration Sodium Chloride 10 ml 11/19/19 22:00 11/23/19 09:34 Sodium Chloride Flush Syringe 10 Ml IV 10 ml BID CESILIA Administration Sodium Chloride 10 ml 11/19/19 15:25 Sodium Chloride Flush Syringe 10 Ml IV PRN PRN LINE FLUSH Nutrition/Malnutrition Assess - Dietary Evaluation Nutrition/Malnutrition Findings: Nutrition Notes Start: 11/21/19 15:21 Freq: Status: Active Protocol: Document 11/21/19 15:21 CHELSEA (Rec: 11/21/19 15:26 CHELSEA FERNÁNDEZ- [email or web address]) Nutrition Notes 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 Pt unsure of wt loss and reports good appetite at this time. He has consumed 88 % of the last two meals. Burn Absent Trauma Absent Current % PO Good (75-100%) Minimum of two criteria No physical signs of malnutrition Is patient on ventilator? No Is Patient Ambulatory and/or Out of Bed No REE-([facility]-confined to bed) 3123.204 Calculation Used for Recommendations [facility] Additional Notes Pro needs 0.8-1.2g/k-99g/ day Fluid needs per MD Nutrition Intervention Follow-Up By: 11/26/19 Additional Comments F/U: stable intakes
[2019-11-24] MEDS: HEPARIN 5,000 UNIT/1 ML VIAL SUB-Q SCH ×3 (00:10→21:52)
[2019-11-24] MEDS: INSULIN LISPRO 100 UNIT/ML SUB-Q SCH ×4 (07:55→22:25)
--- NOTE | 2019-11-24 09:12 | Progress Note ---
Assessment and Plan Severe sepsis secondary to UTI CHRIS on CKD possibly prerenal azotemia vs. ischemic ATN from hypotension Ischemic cardiomyopathy Toxic encephalopathy Anemia in CKD Non-Anion Gap Metabolic acidosis Hx of Paroxysmal Atrial Fibrillation Hx of CAD/AK Plan: - lkabs pending this AM - Low urine sodium suggestive of prerenal etiology - Calculated protein to cr ratio 1.5 g, urine eosinophils negative - Renal US reviewed- medical renal disease - Renally dose medications - Needs strict intake and output - Noonan Catheter: No -Patient to f/u in our office in 7 days of discharge: [facility]: [address] [place] [address] Terry Metz MD [phone] Subjective Date of service: 11/24/19 Principal diagnosis: Acute on CKD Interval history: comfortable Objective - Vital Signs Vital signs: Vital Signs - 12hr 11/23/19 11/24/19 11/24/19 22:00 02:27 07:35 Temperature 98.4 F 98.5 F Pulse Rate 70 70 Respiratory 20 20 Rate Blood Pressure 118/71 135/85 O2 Sat by Pulse 98 95 100 Oximetry - General Appearance General appearance: well-developed, well-nourished, appears stated age EENT: ATNC, PERRL, mucous membranes moist Neck: no JVD, no carotid bruit Respiratory: Present: Clear to Ascultation. Absent: Rales, Ronchi Cardiology: regular, S1S2 Gastrointestinal: normoactive bowel sounds Integumentary: no rash, warm and dry Neurologic: no focal deficit, no asterixis Musculoskeletal: other (no edema in BLE) Psychiatric: mood/affect appropriate, cooperative - Lab 11/23/19 04:45 11/23/19 04:45 Most recent lab results Calcium 8.4 mg/dL (8.4-10.2) 11/23/19 04:45 Phosphorus 2.70 mg/dL (2.5-4.5) 11/23/19 04:45 Urine Creatinine 86.0 mg/dL (0.1-20.0) H 11/20/19 12:57 Urine Creatinine < 4.2 mg/dL (0.1-20.0) 11/20/19 12:57 Urine Sodium 10 mmol/L 11/20/19 12:57 Urine Total Protein 134 mg/dL (5-11.8) H 11/20/19 12:57 Medications & Allergies - Medications Allergies/Adverse Reactions: Allergies No Known Allergies Allergy (Unverified 07/12/14 15:48) Home Medications: Home Medications Medication Instructions Recorded Confirmed Last Taken Type Aspirin [Adult Low Dose Aspirin EC] 81 mg PO DAILY #30 tablet.dr 07/22/1606/01 Unknown Rx Gabapentin 300 mg PO BID #30 07/22/16 11/19/19 Unknown Rx Clopidogrel [Plavix] 75 mg PO QDAY tablet 12/27/16 11/19/19 Unknown Rx Rosuvastatin Calcium 20 mg PO DAILY 11/19/19 11/19/19 Unknown History Saxagliptin HCl [Onglyza] 5 mg PO DAILY 11/19/19 11/19/19 Unknown History carvediloL [Coreg] 3.125 mg PO BID 11/19/19 11/19/19 Unknown History Active Medications: Generic Name Dose Route Start Last Admin Trade Name Freq PRN Reason Stop Dose Admin Aspirin 81 mg 11/20/19 10:00 11/23/19 09:31 Halfprin Ec PO 81 mg DAILY CESILIA Administration Atorvastatin Calcium 40 mg 11/19/19 22:00 11/24/19 00:13 Lipitor PO 40 mg QHS CESILIA Administration Benzonatate 100 mg 11/20/19 21:34 11/23/19 17:18 Tessalon Perles PO 100 mg Q6H PRN Administration Cough Clopidogrel Bisulfate 75 mg 11/20/19 10:00 11/23/19 09:31 Plavix PO 75 mg QDAY CESILIA Administration Dextrose 50 ml 11/22/19 14:38 D50w (25gm) Syringe IV Q30MIN PRN Hypoglycemia Protocol Heparin Sodium (Porcine) 5,000 unit 11/19/19 22:00 11/24/19 00:10 Heparin SUB-Q 5,000 unit Q12HR CESILIA Administration Insulin Human Lispro 0 unit 11/22/19 16:30 11/24/19 07:55 Humalog SUB-Q Not Given ACHS CESILIA Protocol Linagliptin 5 mg 11/20/19 10:00 11/23/19 09:31 Tradjenta PO 5 mg QDAY CESILIA Administration Sodium Chloride 10 ml 11/19/19 22:00 11/23/19 09:34 Sodium Chloride Flush Syringe 10 Ml IV 10 ml BID CESILIA Administration Sodium Chloride 10 ml 11/19/19 15:25 Sodium Chloride Flush Syringe 10 Ml IV PRN PRN LINE FLUSH
[2019-11-24 09:28] LABS: Calcium 8.7 mg/dL (8.4-10.2)
[2019-11-24] MEDS: ASPIRIN EC 81 MG TAB PO SCH (09:28)
[2019-11-24] MEDS: LINAGLIPTIN 5 MG TAB PO SCH (09:28)
[2019-11-24] MEDS: CLOPIDOGREL 75 MG TAB PO SCH (09:28)
[2019-11-24 09:43] LABS: Basophils % (Auto) 0.3 % (0.0-1.8); Eosinophils # (Auto) 0.2 K/mm3 (0.0-0.4); Eosinophils % (Auto) 3.9 % (0.0-4.3); Hematocrit 28.2 % (35.5-45.6); Hemoglobin 9.3 gm/dl (11.8-15.2); Lymphocytes # (Auto) 0.4 K/mm3 (1.2-5.4); Lymphocytes % (Auto) 6.5 % (13.4-35.0); Mean Corpuscular HGB Conc 33 % (32-34); Mean Corpuscular Volume 84 fl (84-94); Monocytes # (Auto) 0.5 K/mm3 (0.0-0.8); Platelet Count 116 K/mm3 (140-440); Red Blood Count 3.34 M/mm3 (3.65-5.03); Red Cell Distribution Width 16.4 % (13.2-15.2)
--- NOTE | 2019-11-24 11:55 | Progress Note ---
Assessment and Plan - Patient Problems (1) Dilated cardiomyopathy Current Visit: Yes Status: Acute Plan to address problem: GD Medical therapy for CAD, ischemic CM and PAF. Cardiac stable, we will follow intermittently. Subjective Date of service: 11/24/19 Principal diagnosis: Acute on CKD Interval history: No cardiac complaints, appears comfortable. Objective Vital Signs Temp Pulse Resp BP Pulse Ox 11/24/19 07:35 98.5 F 70 20 135/85 100 11/24/19 02:27 98.4 F 70 20 118/71 95 11/23/19 22:00 98 11/23/19 20:02 98.4 F 72 20 101/64 98 11/23/19 13:56 97.6 F 70 20 107/63 93 - Physical Examination General: No Apparent Distress HEENT: Positive: PERRL Neck: Positive: trachea midline Cardiac: Positive: Reg Rate and Rhythm Lungs: Positive: Decreased Breath Sounds Neuro: Positive: Grossly Intact Abdomen: Positive: Soft Skin: Positive: Clear Extremities: Absent: edema - Labs and Meds CBC 11/24/19 Range/Units 08:40 WBC 6.0 (4.5-11.0) K/mm3 RBC 3.34 L (3.65-5.03) M/mm3 Hgb 9.3 L (11.8-15.2) gm/dl Hct 28.2 L (35.5-45.6) % Plt Count 116 L (140-440) K/mm3 Lymph # 0.4 L (1.2-5.4) K/mm3 [place] # 0.5 (0.0-0.8) K/mm3 Eos # 0.2 (0.0-0.4) K/mm3 Baso # 0.0 (0.0-0.1) K/mm3 Comprehensive Metabolic Panel 11/24/19 Range/Units 08:40 Sodium 136 L (137-145) mmol/L Potassium 3.6 (3.6-5.0) mmol/L Chloride 101.5 (98-107) mmol/L Carbon Dioxide 20 L (22-30) mmol/L BUN 23 H (9-20) mg/dL Creatinine 1.8 H (0.8-1.5) mg/dL Glucose 109 H (75-100) mg/dL Calcium 8.7 (8.4-10.2) mg/dL
--- NOTE | 2019-11-24 14:33 | Progress Note ---
Assessment and Plan Assessment and plan: Sepsis due to UTI Severe sepsis: blood cultures X 2, drawn maintain mean arterial pressure above 65, IV pressor support as clinically indicated. Now weaned off Levophed Consulted ID, following Acute kidney injury (CHRIS) with acute tubular necrosis (ATN) IV fluid resuscitation therapy, monitor urine output every shift, Nephrology consult placed in the emergency department. Improving Cr Hyponatremia Monitor Metabolic acidosis IV fluid resuscitation therapy, treat sepsis, monitor urine output every shift, serial lactic acid levels, Toxic encephalopathy, improved CT head, neuro check, aspiration precaution, fall precautions, Diabetes mellitus type 2 Sliding scale insulin diet, Accu-Chek, Chronic systolic CHF (congestive heart failure) Monitor fluid balance, cardiology following, Cardiology following supportive care, oxygen, nebulizer therapy, afterload reduction as tolerated, UTI (urinary tract infection) due to Serratia IV antibiotic therapy completed, DVT prophylaxis SCD to bilateral lower extremities while in bed, prophylactic heparin. Advance care planning Patient is full code, disease education conducted, 11/22 patient stable for discharge, orders put in put Nurse unable to contact family, called daughter multiple times 11/23 Nurse report patient holding food, so put on Pureed diet. Nurse told me daughter requested Coronavirus test but he does not meet criteria. daughter requesting SNF placement. History Interval history: Presented with fever No more fever since 11/18 Gen weakness improved Nurse report patient holding food in mouth Hospitalist Physical - Physical exam Narrative exam: GEN: Not in acute distress, lying in bed, HEENT: Normocephalic, atraumatic, Neck: supple, No JVD Lungs: Clear , no crackles, heart;S1 and S2 reg, no murmurs, rubs or gallop Abd:soft, non tender, non distended, normal bowel sounds Ext: No edema, no clubbing, no cyanosis, Neuro:Awake, alert,oriented X 3, no focal neurological signs - Constitutional Vitals: Temp Pulse Resp BP Pulse Ox 98.5 F 70 20 135/85 100 11/24/19 07:35 11/24/19 07:35 11/24/19 07:35 11/24/19 07:35 11/24/19 07:35 General appearance: Present: no acute distress Results - Labs CBC & Chem 7: 11/24/19 08:40 11/24/19 08:40 Labs: Laboratory Last Values WBC 6.0 K/mm3 (4.5-11.0) 11/24/19 08:40 RBC 3.34 M/mm3 (3.65-5.03) L 11/24/19 08:40 Hgb 9.3 gm/dl (11.8-15.2) L 11/24/19 08:40 Hct 28.2 % (35.5-45.6) L 11/24/19 08:40 MCV 84 fl (84-94) 11/24/19 08:40 MCH 28 pg (28-32) 11/24/19 08:40 MCHC 33 % (32-34) 11/24/19 08:40 RDW 16.4 % (13.2-15.2) H 11/24/19 08:40 Plt Count 116 K/mm3 (140-440) L 11/24/19 08:40 Lymph % (Auto) 6.5 % (13.4-35.0) L 11/24/19 08:40 [place] % (Auto) 9.0 % (0.0-7.3) H 11/24/19 08:40 Eos % (Auto) 3.9 % (0.0-4.3) 11/24/19 08:40 Baso % (Auto) 0.3 % (0.0-1.8) 11/24/19 08:40 Lymph # 0.4 K/mm3 (1.2-5.4) L 11/24/19 08:40 [place] # 0.5 K/mm3 (0.0-0.8) 11/24/19 08:40 Eos # 0.2 K/mm3 (0.0-0.4) 11/24/19 08:40 Baso # 0.0 K/mm3 (0.0-0.1) 11/24/19 08:40 Seg Neutrophils % 80.3 % (40.0-70.0) H 11/24/19 08:40 Seg Neutrophils # 4.8 K/mm3 (1.8-7.7) 11/24/19 08:40 Sodium 136 mmol/L (137-145) L 11/24/19 08:40 Potassium 3.6 mmol/L (3.6-5.0) 11/24/19 08:40 Chloride 101.5 mmol/L (98-107) 11/24/19 08:40 Carbon Dioxide 20 mmol/L (22-30) L 11/24/19 08:40 Anion Gap 18 mmol/L 11/24/19 08:40 BUN 23 mg/dL (9-20) H 11/24/19 08:40 Creatinine 1.8 mg/dL (0.8-1.5) H 11/24/19 08:40 Estimated GFR 44 ml/min 11/24/19 08:40 BUN/Creatinine Ratio 13 % 11/24/19 08:40 Glucose 109 mg/dL (75-100) H 11/24/19 08:40 POC Glucose 112 (70-105) H 11/24/19 11:32 Lactic Acid 1.20 mmol/L (0.7-2.0) 11/19/19 16:06 Calcium 8.7 mg/dL (8.4-10.2) 11/24/19 08:40 Phosphorus 2.40 mg/dL (2.5-4.5) L 11/24/19 08:40 Iron 33 ug/dL (49-181) L 11/21/19 04:30 TIBC 186 mcg/dL (250-450) L 11/21/19 04:30 Ferritin 266.3 ng/mL (13.0-400.0) 11/21/19 04:30 Total Bilirubin 0.90 mg/dL (0.1-1.2) 11/19/19 12:17 AST 18 units/L (5-40) 11/19/19 12:17 ALT 8 units/L (7-56) 11/19/19 12:17 Alkaline Phosphatase 111 units/L (35-129) 11/19/19 12:17 Ammonia 63.0 umol/L (25-60) H 11/19/19 12:17 Total Creatine Kinase 463 units/L (55-170) H 11/20/19 10:16 Troponin T 0.028 ng/mL (0.00-0.029) 11/20/19 10:16 Total Protein 8.0 g/dL (6.3-8.2) 11/19/19 12:17 Albumin 4.0 g/dL (3.9-5) 11/19/19 12:17 Albumin/Globulin Ratio 1.0 % 11/19/19 12:17 TSH 1.390 mlU/mL (0.270-4.200) 11/19/19 12:17 Urine Color Yellow (Yellow) 11/19/19 13:30 Urine Turbidity Cloudy (Clear) 11/19/19 13:30 Urine pH 5.0 (5.0-7.0) 11/19/19 13:30 Ur Specific [place] 1.012 (1.003-1.030) 11/19/19 13:30 Urine Protein 100 mg/dl mg/dL (Negative) 11/19/19 13:30 Urine Glucose (UA) Neg mg/dL (Negative) 11/19/19 13:30 Urine Ketones Neg mg/dL (Negative) 11/19/19 13:30 Urine Blood Mod (Negative) 11/19/19 13:30 Urine Nitrite Neg (Negative) 11/19/19 13:30 Urine Bilirubin Neg (Negative) 11/19/19 13:30 Urine Urobilinogen < 2.0 mg/dL (<2.0) 11/19/19 13:30 Ur Leukocyte Esterase Lg (Negative) 11/19/19 13:30 Urine WBC (Auto) > 182.0 /HPF (0.0-6.0) H 11/19/19 13:30 Urine RBC (Auto) 6.0 /HPF (0.0-6.0) 11/19/19 13:30 U Epithel Cells (Auto) < 1.0 /HPF (0-13.0) 11/19/19 13:30 Urine Bacteria (Auto) 1+ /HPF (Negative) 11/19/19 13:30 Urine WBC Clumps 3+ /HPF 11/19/19 13:30 Urine Eosinophils None seen (None Seen) 11/20/19 12:57 Urine Creatinine 86.0 mg/dL (0.1-20.0) H 11/20/19 12:57 Urine Creatinine < 4.2 mg/dL (0.1-20.0) 11/20/19 12:57 Protein/Creatinin Ratio 1.56 11/20/19 12:57 Urine Sodium 10 mmol/L 11/20/19 12:57 Urine Total Protein 134 mg/dL (5-11.8) H 11/20/19 12:57 Influenza A (Rapid) Negative (Negative) 11/19/19 Unknown Influenza B (Rapid) Negative (Negative) 11/19/19 Unknown Blood Type O POSITIVE 11/19/19 16:06 Antibody Screen Negative 11/19/19 16:06 Noonan/IV: Voiding Method Diaper IV Catheter Type [Right Triple Lumen Cath Internal Jugular] IV Catheter Type [Right Hand] Peripheral IV Active Medications - Current Medications Current Medications: Generic Name Dose Route Start Last Admin Trade Name Freq PRN Reason Stop Dose Admin Aspirin 81 mg 11/20/19 10:00 11/24/19 09:28 Halfprin Ec PO 81 mg DAILY CESILIA Administration Atorvastatin Calcium 40 mg 11/19/19 22:00 11/24/19 00:13 Lipitor PO 40 mg QHS CESILIA Administration Benzonatate 100 mg 11/20/19 21:34 11/23/19 17:18 Tessalon Perles PO 100 mg Q6H PRN Administration Cough Clopidogrel Bisulfate 75 mg 11/20/19 10:00 11/24/19 09:28 Plavix PO 75 mg QDAY CESILIA Administration Dextrose 50 ml 11/22/19 14:38 D50w (25gm) Syringe IV Q30MIN PRN Hypoglycemia Protocol Heparin Sodium (Porcine) 5,000 unit 11/19/19 22:00 11/24/19 09:28 Heparin SUB-Q 5,000 unit Q12HR CESILIA Administration Insulin Human Lispro 0 unit 11/22/19 16:30 11/24/19 12:56 Humalog SUB-Q Not Given ACHS CESILIA Protocol Linagliptin 5 mg 11/20/19 10:00 11/24/19 09:28 Tradjenta PO 5 mg QDAY CESILIA Administration Sodium Chloride 10 ml 11/19/19 22:00 11/24/19 12:57 Sodium Chloride Flush Syringe 10 Ml IV Not Given BID CESILIA Sodium Chloride 10 ml 11/19/19 15:25 Sodium Chloride Flush Syringe 10 Ml IV PRN PRN LINE FLUSH Nutrition/Malnutrition Assess - Dietary Evaluation Nutrition/Malnutrition Findings: Nutrition Notes Start: 11/21/19 15:21 Freq: Status: Active Protocol: Document 11/21/19 15:21 CHELSEA (Rec: 11/21/19 15:26 [email or web address] [email or web address]) Nutrition Notes 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 Pt unsure of wt loss and reports good appetite at this time. He has consumed 88 % of the last two meals. Burn Absent Trauma Absent Current % PO Good (75-100%) Minimum of two criteria No physical signs of malnutrition Is patient on ventilator? No Is Patient Ambulatory and/or Out of Bed No REE-([place]-St[place]asidy Castrejon-confined to bed) [phone] [facility] Additional Notes Pro needs 0.8-1.2g/k-99g/ day Fluid needs per MD Nutrition Intervention Follow-Up By: 11/26/19 Additional Comments F/U: stable intakes
[2019-11-25 05:49] LABS: Basophils % (Auto) 0.3 % (0.0-1.8); Eosinophils # (Auto) 0.2 K/mm3 (0.0-0.4); Eosinophils % (Auto) 4.8 % (0.0-4.3); Hematocrit 28.2 % (35.5-45.6); Hemoglobin 9.5 gm/dl (11.8-15.2); Lymphocytes # (Auto) 0.5 K/mm3 (1.2-5.4); Lymphocytes % (Auto) 9.8 % (13.4-35.0); Mean Corpuscular HGB Conc 34 % (32-34); Mean Corpuscular Volume 84 fl (84-94); Monocytes # (Auto) 0.6 K/mm3 (0.0-0.8); Monocytes % (Auto) 11.8 % (0.0-7.3); Platelet Count 122 K/mm3 (140-440); Red Blood Count 3.35 M/mm3 (3.65-5.03); Red Cell Distribution Width 16.3 % (13.2-15.2)
[2019-11-25 06:41] LABS: Calcium 8.8 mg/dL (8.4-10.2)
[2019-11-25] MEDS: INSULIN LISPRO 100 UNIT/ML SUB-Q SCH ×5 (08:09→22:04)
--- NOTE | 2019-11-25 09:11 | Progress Note ---
Assessment and Plan Severe sepsis secondary to UTI CHRIS on CKD possibly prerenal azotemia vs. ischemic ATN from hypotension Ischemic cardiomyopathy Toxic encephalopathy Anemia in CKD Non-Anion Gap Metabolic acidosis Hx of Paroxysmal Atrial Fibrillation Hx of CAD/NM Plan: - stable kidney function - Low urine sodium suggestive of prerenal etiology - Renal US reviewed- medical renal disease - Renally dose medications - Needs strict intake and output - Noonan Catheter: No -Patient to f/u in our office in 7 days of discharge: [facility]: [address] [place] [address] Terry Metz MD [phone] Subjective Date of service: 11/25/19 Principal diagnosis: Acute on CKD Interval history: denies acute issues Objective - Vital Signs Vital signs: Vital Signs - 12hr 11/24/19 11/25/19 11/25/19 21:28 03:23 03:27 Temperature 97.6 F Pulse Rate 105 H Respiratory 20 Rate Blood Pressure 120/78 O2 Sat by Pulse 100 100 Oximetry 11/25/19 07:40 Temperature 98.5 F Pulse Rate 77 Respiratory 22 Rate Blood Pressure 112/77 O2 Sat by Pulse 100 Oximetry - Lab 11/25/19 04:05 11/25/19 04:05 Most recent lab results Calcium 8.8 mg/dL (8.4-10.2) 11/25/19 04:05 Phosphorus 2.40 mg/dL (2.5-4.5) L 11/25/19 04:05 Urine Creatinine 86.0 mg/dL (0.1-20.0) H 11/20/19 12:57 Urine Creatinine < 4.2 mg/dL (0.1-20.0) 11/20/19 12:57 Urine Sodium 10 mmol/L 11/20/19 12:57 Urine Total Protein 134 mg/dL (5-11.8) H 11/20/19 12:57 Medications & Allergies - Medications Allergies/Adverse Reactions: Allergies No Known Allergies Allergy (Unverified 07/12/14 15:48) Home Medications: Home Medications Medication Instructions Recorded Confirmed Last Taken Type Aspirin [Adult Low Dose Aspirin EC] 81 mg PO DAILY #30 tablet. 07/22/16 11/19/19 Unknown Rx Gabapentin 300 mg PO BID #30 07/22/16 11/19/19 Unknown Rx Clopidogrel [Plavix] 75 mg PO QDAY tablet 12/27/16 11/19/19 Unknown Rx Rosuvastatin Calcium 20 mg PO DAILY 11/19/19 11/19/19 Unknown History Saxagliptin HCl [Onglyza] 5 mg PO DAILY 11/19/19 11/19/19 Unknown History carvediloL [Coreg] 3.125 mg PO BID 11/19/19 11/19/19 Unknown History Active Medications: Generic Name Dose Route Start Last Admin Trade Name Freq PRN Reason Stop Dose Admin Aspirin 81 mg 11/20/19 10:00 11/24/19 09:28 Halfprin Ec PO 81 mg DAILY CESILIA Administration Atorvastatin Calcium 40 mg 11/19/19 22:00 11/24/19 21:52 Lipitor PO 40 mg QHS CESILIA Administration Benzonatate 100 mg 11/20/19 21:34 11/23/19 17:18 Tessalon Perles PO 100 mg Q6H PRN Administration Cough Clopidogrel Bisulfate 75 mg 11/20/19 10:00 11/24/19 09:28 Plavix PO 75 mg QDAY CESILIA Administration Dextrose 50 ml 11/22/19 14:38 D50w (25gm) Syringe IV Q30MIN PRN Hypoglycemia Protocol Heparin Sodium (Porcine) 5,000 unit 11/19/19 22:00 11/24/19 21:52 Heparin SUB-Q 5,000 unit Q12HR CESILIA Administration Insulin Human Lispro 0 unit 11/22/19 16:30 11/25/19 08:09 Humalog SUB-Q Not Given ACHS CESILIA Protocol Linagliptin 5 mg 11/20/19 10:00 11/24/19 09:28 Tradjenta PO 5 mg QDAY CESILIA Administration Sodium Chloride 10 ml 11/19/19 22:00 11/24/19 21:51 Sodium Chloride Flush Syringe 10 Ml IV 10 ml BID CESILIA Administration Sodium Chloride 10 ml 11/19/19 15:25 Sodium Chloride Flush Syringe 10 Ml IV PRN PRN LINE FLUSH
[2019-11-25] MEDS: CLOPIDOGREL 75 MG TAB PO SCH (09:29)
[2019-11-25] MEDS: HEPARIN 5,000 UNIT/1 ML VIAL SUB-Q SCH ×2 (09:29→22:02)
[2019-11-25] MEDS: ASPIRIN EC 81 MG TAB PO SCH (09:29)
[2019-11-25] MEDS: LINAGLIPTIN 5 MG TAB PO SCH (09:30)
--- NOTE | 2019-11-25 11:09 | Progress Note ---
Assessment and Plan Assessment and plan: Sepsis due to UTI Severe sepsis: blood cultures X 2, drawn maintain mean arterial pressure above 65, IV pressor support as clinically indicated. Now weaned off Levophed Consulted ID, following Acute kidney injury (CHRIS) with acute tubular necrosis (ATN) IV fluid resuscitation therapy, monitor urine output every shift, Nephrology consult placed in the emergency department. Improving Cr Hyponatremia Monitor Metabolic acidosis IV fluid resuscitation therapy, treat sepsis, monitor urine output every shift, serial lactic acid levels, Toxic encephalopathy, improved CT head, neuro check, aspiration precaution, fall precautions, Diabetes mellitus type 2 Sliding scale insulin diet, Accu-Chek, Chronic systolic CHF (congestive heart failure) Monitor fluid balance, cardiology following, Cardiology following supportive care, oxygen, nebulizer therapy, afterload reduction as tolerated, UTI (urinary tract infection) due to Serratia IV antibiotic therapy completed, DVT prophylaxis SCD to bilateral lower extremities while in bed, prophylactic heparin. Advance care planning Patient is full code, disease education conducted, 11/22 patient stable for discharge, orders put in put Nurse unable to contact family, called daughter multiple times 11/23 Nurse report patient holding food, so put on Pureed diet. Nurse told me daughter requested Coronavirus test but he does not meet criteria. Initial fever due to UTI had resolved. daughter requesting SNF placement. 11/24 Patient on pureed diet. speech Pathologist to evaluate. Daughter requested SNF placement History Interval history: Presented with fever No more fever since 11/18 Gen weakness improved Nurse report patient holding food in mouth Hospitalist Physical - Physical exam Narrative exam: GEN: Not in acute distress, lying in bed, HEENT: Normocephalic, atraumatic, Neck: supple, No JVD Lungs: Clear , no crackles, heart;S1 and S2 reg, no murmurs, rubs or gallop Abd:soft, non tender, non distended, normal bowel sounds Ext: No edema, no clubbing, no cyanosis, Neuro:Awake, alert,oriented X 3, no focal neurological signs - Constitutional Vitals: Temp Pulse Resp BP Pulse Ox 98.5 F 77 22 112/77 100 11/25/19 07:40 11/25/19 10:31 11/25/19 10:31 11/25/19 07:40 11/25/19 10:31 General appearance: Present: no acute distress Results - Labs CBC & Chem 7: 11/25/19 04:05 11/25/19 04:05 Labs: Laboratory Last Values WBC 5.1 K/mm3 (4.5-11.0) 11/25/19 04:05 RBC 3.35 M/mm3 (3.65-5.03) L 11/25/19 04:05 Hgb 9.5 gm/dl (11.8-15.2) L 11/25/19 04:05 Hct 28.2 % (35.5-45.6) L 11/25/19 04:05 MCV 84 fl (84-94) 11/25/19 04:05 MCH 28 pg (28-32) 11/25/19 04:05 MCHC 34 % (32-34) 11/25/19 04:05 RDW 16.3 % (13.2-15.2) H 11/25/19 04:05 Plt Count 122 K/mm3 (140-440) L 11/25/19 04:05 Lymph % (Auto) 9.8 % (13.4-35.0) L 11/25/19 04:05 Barren % (Auto) 11.8 % (0.0-7.3) H 11/25/19 04:05 Eos % (Auto) 4.8 % (0.0-4.3) H 11/25/19 04:05 Baso % (Auto) 0.3 % (0.0-1.8) 11/25/19 04:05 Lymph # 0.5 K/mm3 (1.2-5.4) L 11/25/19 04:05 Barren # 0.6 K/mm3 (0.0-0.8) 11/25/19 04:05 Eos # 0.2 K/mm3 (0.0-0.4) 11/25/19 04:05 Baso # 0.0 K/mm3 (0.0-0.1) 11/25/19 04:05 Seg Neutrophils % 73.3 % (40.0-70.0) H 11/25/19 04:05 Seg Neutrophils # 3.7 K/mm3 (1.8-7.7) 11/25/19 04:05 Sodium 143 mmol/L (137-145) D 11/25/19 04:05 Potassium 3.6 mmol/L (3.6-5.0) 11/25/19 04:05 Chloride 105.4 mmol/L (98-107) 11/25/19 04:05 Carbon Dioxide 25 mmol/L (22-30) 11/25/19 04:05 Anion Gap 16 mmol/L 11/25/19 04:05 BUN 21 mg/dL (9-20) H 11/25/19 04:05 Creatinine 1.7 mg/dL (0.8-1.5) H 11/25/19 04:05 Estimated GFR 47 ml/min 11/25/19 04:05 BUN/Creatinine Ratio 12 % 11/25/19 04:05 Glucose 104 mg/dL (75-100) H 11/25/19 04:05 POC Glucose 117 (70-105) H 11/25/19 07:55 Lactic Acid 1.20 mmol/L (0.7-2.0) 11/19/19 16:06 Calcium 8.8 mg/dL (8.4-10.2) 11/25/19 04:05 Phosphorus 2.40 mg/dL (2.5-4.5) L 11/25/19 04:05 Iron 33 ug/dL (49-181) L 11/21/19 04:30 TIBC 186 mcg/dL (250-450) L 11/21/19 04:30 Ferritin 266.3 ng/mL (13.0-400.0) 11/21/19 04:30 Total Bilirubin 0.90 mg/dL (0.1-1.2) 11/19/19 12:17 AST 18 units/L (5-40) 11/19/19 12:17 ALT 8 units/L (7-56) 11/19/19 12:17 Alkaline Phosphatase 111 units/L (35-129) 11/19/19 12:17 Ammonia 63.0 umol/L (25-60) H 11/19/19 12:17 Total Creatine Kinase 463 units/L (55-170) H 11/20/19 10:16 Troponin T 0.028 ng/mL (0.00-0.029) 11/20/19 10:16 Total Protein 8.0 g/dL (6.3-8.2) 11/19/19 12:17 Albumin 4.0 g/dL (3.9-5) 11/19/19 12:17 Albumin/Globulin Ratio 1.0 % 11/19/19 12:17 TSH 1.390 mlU/mL (0.270-4.200) 11/19/19 12:17 Urine Color Yellow (Yellow) 11/19/19 13:30 Urine Turbidity Cloudy (Clear) 11/19/19 13:30 Urine pH 5.0 (5.0-7.0) 11/19/19 13:30 Ur Specific [place] 1.012 (1.003-1.030) 11/19/19 13:30 Urine Protein 100 mg/dl mg/dL (Negative) 11/19/19 13:30 Urine Glucose (UA) Neg mg/dL (Negative) 11/19/19 13:30 Urine Ketones Neg mg/dL (Negative) 11/19/19 13:30 Urine Blood Mod (Negative) 11/19/19 13:30 Urine Nitrite Neg (Negative) 11/19/19 13:30 Urine Bilirubin Neg (Negative) 11/19/19 13:30 Urine Urobilinogen < 2.0 mg/dL (<2.0) 11/19/19 13:30 Ur Leukocyte Esterase Lg (Negative) 11/19/19 13:30 Urine WBC (Auto) > 182.0 /HPF (0.0-6.0) H 11/19/19 13:30 Urine RBC (Auto) 6.0 /HPF (0.0-6.0) 11/19/19 13:30 U Epithel Cells (Auto) < 1.0 /HPF (0-13.0) 11/19/19 13:30 Urine Bacteria (Auto) 1+ /HPF (Negative) 11/19/19 13:30 Urine WBC Clumps 3+ /HPF 11/19/19 13:30 Urine Eosinophils None seen (None Seen) 11/20/19 12:57 Urine Creatinine 86.0 mg/dL (0.1-20.0) H 11/20/19 12:57 Urine Creatinine < 4.2 mg/dL (0.1-20.0) 11/20/19 12:57 Protein/Creatinin Ratio 1.56 11/20/19 12:57 Urine Sodium 10 mmol/L 11/20/19 12:57 Urine Total Protein 134 mg/dL (5-11.8) H 11/20/19 12:57 Influenza A (Rapid) Negative (Negative) 11/19/19 Unknown Influenza B (Rapid) Negative (Negative) 11/19/19 Unknown Blood Type O POSITIVE 11/19/19 16:06 Antibody Screen Negative 11/19/19 16:06 Noonan/IV: Voiding Method Diaper IV Catheter Type [Right Triple Lumen Cath Internal Jugular] IV Catheter Type [Right Hand] Peripheral IV Active Medications - Current Medications Current Medications: Generic Name Dose Route Start Last Admin Trade Name Freq PRN Reason Stop Dose Admin Aspirin 81 mg 11/20/19 10:00 11/25/19 09:29 Halfprin Ec PO 81 mg DAILY CESILIA Administration Atorvastatin Calcium 40 mg 11/19/19 22:00 11/24/19 21:52 Lipitor PO 40 mg QHS CESILIA Administration Benzonatate 100 mg 11/20/19 21:34 11/23/19 17:18 Tessalon Perles PO 100 mg Q6H PRN Administration Cough Clopidogrel Bisulfate 75 mg 11/20/19 10:00 11/25/19 09:29 Plavix PO 75 mg QDAY CESILIA Administration Dextrose 50 ml 11/22/19 14:38 D50w (25gm) Syringe IV Q30MIN PRN Hypoglycemia Protocol Heparin Sodium (Porcine) 5,000 unit 11/19/19 22:00 11/25/19 09:29 Heparin SUB-Q 5,000 unit Q12HR CESILIA Administration Insulin Human Lispro 0 unit 11/22/19 16:30 11/25/19 08:09 Humalog SUB-Q Not Given ACHS CESILIA Protocol Linagliptin 5 mg 11/20/19 10:00 11/25/19 09:30 Tradjenta PO 5 mg QDAY CESILIA Administration Sodium Chloride 10 ml 11/19/19 22:00 11/25/19 09:30 Sodium Chloride Flush Syringe 10 Ml IV 10 ml BID CESILIA Administration Sodium Chloride 10 ml 11/19/19 15:25 Sodium Chloride Flush Syringe 10 Ml IV PRN PRN LINE FLUSH Nutrition/Malnutrition Assess - Dietary Evaluation Nutrition/Malnutrition Findings: Nutrition Notes Start: 11/21/19 15:21 Freq: Status: Active Protocol: Document 11/21/19 15:21 CHELSEA (Rec: 11/21/19 15:26 [email or web address] [email or web address]) 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 Pt unsure of wt loss and reports good appetite at this time. He has consumed 88 % of the last two meals. Burn Absent Trauma Absent Current % PO Good (75-100%) Minimum of two criteria No physical signs of malnutrition Is patient on ventilator? No Is Patient Ambulatory and/or Out of Bed No REE-([place]-confined to bed) [phone] Calculation Used for Recommendations [place] Additional Notes Pro needs 0.8-1.2g/k-99g/ day Fluid needs per MD Nutrition Intervention Follow-Up By: 11/26/19 Additional Comments F/U: stable intakes
--- NOTE | 2019-11-25 12:37 | Event Note ---
Date: 11/25/19 Rapid response called because patient choked on food, coughing. Will get CXR. Keep NPO. Start iv fluids.
--- NOTE | 2019-11-25 13:38 | XRay Report ---
CHEST 1 VIEW INDICATION / CLINICAL INFORMATION: Choked on food,coughing. COMPARISON: 11/19/2019 FINDINGS: SUPPORT DEVICES: Central venous line is been removed. Pacemaker appears unchanged HEART / MEDIASTINUM: There is prominence of the cardiac silhouette LUNGS / PLEURA: There are parenchymal opacities in the right mid and lower lung zone and in the left lung base. This is developed in the interval.. No pneumothorax. ADDITIONAL FINDINGS: No significant additional findings. IMPRESSION: 1. There is new bilateral pulmonary opacity Signer Name: Marc Salmon MD Signed: 11/25/2019 1:34 PM Workstation Name: [id number]
[2019-11-25] MEDS: D5W/0.45% NACL 1,000 ML IV SCH ×2 (16:33→22:05)
[2019-11-25] MEDS: CEFEPIME/NS 1 GM/100 ML 1 GM/100 ML BAG IV SCH (19:50)
[2019-11-26] MEDS: CEFEPIME/NS 1 GM/100 ML 1 GM/100 ML BAG IV SCH ×2 (04:52→22:17)
[2019-11-26 05:35] LABS: Basophils % (Auto) 0.3 % (0.0-1.8); Eosinophils # (Auto) 0.2 K/mm3 (0.0-0.4); Eosinophils % (Auto) 3.7 % (0.0-4.3); Hematocrit 26.5 % (35.5-45.6); Hemoglobin 8.7 gm/dl (11.8-15.2); Lymphocytes # (Auto) 0.3 K/mm3 (1.2-5.4); Lymphocytes % (Auto) 4.3 % (13.4-35.0); Mean Corpuscular HGB Conc 33 % (32-34); Mean Corpuscular Volume 84 fl (84-94); Monocytes # (Auto) 0.7 K/mm3 (0.0-0.8); Monocytes % (Auto) 11.3 % (0.0-7.3); Platelet Count 143 K/mm3 (140-440); Red Blood Count 3.14 M/mm3 (3.65-5.03); Red Cell Distribution Width 16.8 % (13.2-15.2)
[2019-11-26 06:18] LABS: Calcium 8.7 mg/dL (8.4-10.2)
[2019-11-26] MEDS: INSULIN LISPRO 100 UNIT/ML SUB-Q SCH ×4 (08:08→23:08)
[2019-11-26] MEDS: HEPARIN 5,000 UNIT/1 ML VIAL SUB-Q SCH ×2 (10:00→22:18)
--- NOTE | 2019-11-26 10:57 | Progress Note ---
Assessment and Plan Sepsis thought secondary to UTI Hx of AK/CAD Hx of Ischemic cardiomyopathy there is no evidence of decompensation Echocardiogram this admission reports 4 chamber dilation, LVEF 15-20%. Hx of Atrial fibrillation, paroxysmal not on anticoagulation due to high bleeding risk in sinus rhythm Presence of DC PPM Chronic kidney disease Anemia Hx of COPD Recommend: Continue medical therapy for his paroxysmal atrial fibrillation, coronary artery disease and ischemic cardiomyopathy. Conservative cardiac management. We will follow intermittently. Subjective Date of service: 11/26/19 Principal diagnosis: Acute on CKD Interval history: Patient is resting in bed comfortably. No reported cardiac events. Objective Vital Signs Temp Pulse Resp BP BP Pulse Ox 11/26/19 08:17 98.6 F 82 20 131/80 95 11/26/19 02:27 118/95 11/26/19 02:24 98.6 F 84 20 99 11/25/19 20:39 100 11/25/19 20:06 98.3 F 84 20 100 11/25/19 20:05 115/74 115/74 11/25/19 13:12 98.5 F 69 20 111/86 100 11/25/19 12:50 98 - Physical Examination General: No Apparent Distress HEENT: Positive: PERRL Neck: Positive: trachea midline Cardiac: Positive: Other (paced) Lungs: Positive: Decreased Breath Sounds Neuro: Positive: Grossly Intact Abdomen: Positive: Soft Skin: Positive: Clear Extremities: Absent: edema - Labs and Meds CBC 11/26/19 Range/Units 04:45 WBC 6.6 (4.5-11.0) K/mm3 RBC 3.14 L (3.65-5.03) M/mm3 Hgb 8.7 L (11.8-15.2) gm/dl Hct 26.5 L (35.5-45.6) % Plt Count 143 (140-440) K/mm3 Lymph # 0.3 L (1.2-5.4) K/mm3 [place] # 0.7 (0.0-0.8) K/mm3 Eos # 0.2 (0.0-0.4) K/mm3 Baso # 0.0 (0.0-0.1) K/mm3 Comprehensive Metabolic Panel 11/26/19 Range/Units 04:45 Sodium 146 H (137-145) mmol/L Potassium 3.7 (3.6-5.0) mmol/L Chloride 108.0 H (98-107) mmol/L Carbon Dioxide 21 L (22-30) mmol/L BUN 19 (9-20) mg/dL Creatinine 1.7 H (0.8-1.5) mg/dL Glucose 134 H (75-100) mg/dL Calcium 8.7 (8.4-10.2) mg/dL
--- NOTE | 2019-11-26 11:49 | Progress Note ---
Assessment and Plan Assessment and plan: Sepsis due to UTI Severe sepsis: blood cultures X 2, drawn maintain mean arterial pressure above 65, IV pressor support as clinically indicated. Now weaned off Levophed Consulted ID, following Acute kidney injury (CHRIS) with acute tubular necrosis (ATN) IV fluid resuscitation therapy, monitor urine output every shift, Nephrology consult placed in the emergency department. Improving Cr Hyponatremia Monitor Metabolic acidosis IV fluid resuscitation therapy, treat sepsis, monitor urine output every shift, serial lactic acid levels, Toxic encephalopathy, improved CT head, neuro check, aspiration precaution, fall precautions, Diabetes mellitus type 2 Sliding scale insulin diet, Accu-Chek, Chronic systolic CHF (congestive heart failure) Monitor fluid balance, cardiology following, Cardiology following supportive care, oxygen, nebulizer therapy, afterload reduction as tolerated, UTI (urinary tract infection) due to Serratia IV antibiotic therapy completed, DVT prophylaxis SCD to bilateral lower extremities while in bed, prophylactic heparin. Advance care planning Patient is full code, disease education conducted, 11/22 patient stable for discharge, orders put in put Nurse unable to contact family, called daughter multiple times 11/23 Nurse report patient holding food, so put on Pureed diet. Nurse told me daughter requested Coronavirus test but he does not meet criteria. Initial fever due to UTI had resolved. daughter requesting SNF placement. 11/24 Patient on pureed diet. speech Pathologist to evaluate. Daughter requested SNF placement 11/25 Rapid response called yesterday because patient choked on food. X ray showed bilat pneumonia,likely aspiration pneumonia. Re-start Cefepime . Keep NPO till speech pathology evaluation. Also family requested SNF placement but may not meet criteria as per civil manager. History Interval history: Presented with fever No more fever since 11/18 Choked on pureed diet yesterday 11/24 Hospitalist Physical - Physical exam Narrative exam: GEN: Not in acute distress, lying in bed, HEENT: Normocephalic, atraumatic, Neck: supple, No JVD Lungs: Clear , no crackles, heart;S1 and S2 reg, no murmurs, rubs or gallop Abd:soft, non tender, non distended, normal bowel sounds Ext: No edema, no clubbing, no cyanosis, Neuro:Awake, alert, no focal neurological signs - Constitutional Vitals: Temp Pulse Resp BP Pulse Ox 98.6 F 82 20 131/80 95 11/26/19 08:17 11/26/19 08:17 11/26/19 08:17 11/26/19 08:17 11/26/19 10:00 General appearance: Present: no acute distress Results - Labs CBC & Chem 7: 11/26/19 04:45 11/26/19 04:45 Labs: Laboratory Last Values WBC 6.6 K/mm3 (4.5-11.0) 11/26/19 04:45 RBC 3.14 M/mm3 (3.65-5.03) L 11/26/19 04:45 Hgb 8.7 gm/dl (11.8-15.2) L 11/26/19 04:45 Hct 26.5 % (35.5-45.6) L 11/26/19 04:45 MCV 84 fl (84-94) 11/26/19 04:45 MCH 28 pg (28-32) 11/26/19 04:45 MCHC 33 % (32-34) 11/26/19 04:45 RDW 16.8 % (13.2-15.2) H 11/26/19 04:45 Plt Count 143 K/mm3 (140-440) 11/26/19 04:45 Lymph % (Auto) 4.3 % (13.4-35.0) L 11/26/19 04:45 [place] % (Auto) 11.3 % (0.0-7.3) H 11/26/19 04:45 Eos % (Auto) 3.7 % (0.0-4.3) 11/26/19 04:45 Baso % (Auto) 0.3 % (0.0-1.8) 11/26/19 04:45 Lymph # 0.3 K/mm3 (1.2-5.4) L 11/26/19 04:45 [place] # 0.7 K/mm3 (0.0-0.8) 11/26/19 04:45 Eos # 0.2 K/mm3 (0.0-0.4) 11/26/19 04:45 Baso # 0.0 K/mm3 (0.0-0.1) 11/26/19 04:45 Seg Neutrophils % 80.4 % (40.0-70.0) H 11/26/19 04:45 Seg Neutrophils # 5.3 K/mm3 (1.8-7.7) 11/26/19 04:45 Sodium 146 mmol/L (137-145) H 11/26/19 04:45 Potassium 3.7 mmol/L (3.6-5.0) 11/26/19 04:45 Chloride 108.0 mmol/L (98-107) H 11/26/19 04:45 Carbon Dioxide 21 mmol/L (22-30) L 11/26/19 04:45 Anion Gap 21 mmol/L 11/26/19 04:45 BUN 19 mg/dL (9-20) 11/26/19 04:45 Creatinine 1.7 mg/dL (0.8-1.5) H 11/26/19 04:45 Estimated GFR 47 ml/min 11/26/19 04:45 BUN/Creatinine Ratio 11 % 11/26/19 04:45 Glucose 134 mg/dL (75-100) H 11/26/19 04:45 POC Glucose 125 (70-105) H 11/26/19 11:38 Lactic Acid 1.20 mmol/L (0.7-2.0) 11/19/19 16:06 Calcium 8.7 mg/dL (8.4-10.2) 11/26/19 04:45 Phosphorus 2.50 mg/dL (2.5-4.5) 11/26/19 04:45 Iron 33 ug/dL (49-181) L 11/21/19 04:30 TIBC 186 mcg/dL (250-450) L 11/21/19 04:30 Ferritin 266.3 ng/mL (13.0-400.0) 11/21/19 04:30 Total Bilirubin 0.90 mg/dL (0.1-1.2) 11/19/19 12:17 AST 18 units/L (5-40) 11/19/19 12:17 ALT 8 units/L (7-56) 11/19/19 12:17 Alkaline Phosphatase 111 units/L (35-129) 11/19/19 12:17 Ammonia 63.0 umol/L (25-60) H 11/19/19 12:17 Total Creatine Kinase 463 units/L (55-170) H 11/20/19 10:16 Troponin T 0.028 ng/mL (0.00-0.029) 11/20/19 10:16 Total Protein 8.0 g/dL (6.3-8.2) 11/19/19 12:17 Albumin 4.0 g/dL (3.9-5) 11/19/19 12:17 Albumin/Globulin Ratio 1.0 % 11/19/19 12:17 TSH 1.390 mlU/mL (0.270-4.200) 11/19/19 12:17 Urine Color Yellow (Yellow) 11/19/19 13:30 Urine Turbidity Cloudy (Clear) 11/19/19 13:30 Urine pH 5.0 (5.0-7.0) 11/19/19 13:30 Ur Specific [place] 1.012 (1.003-1.030) 11/19/19 13:30 Urine Protein 100 mg/dl mg/dL (Negative) 11/19/19 13:30 Urine Glucose (UA) Neg mg/dL (Negative) 11/19/19 13:30 Urine Ketones Neg mg/dL (Negative) 11/19/19 13:30 Urine Blood Mod (Negative) 11/19/19 13:30 Urine Nitrite Neg (Negative) 11/19/19 13:30 Urine Bilirubin Neg (Negative) 11/19/19 13:30 Urine Urobilinogen < 2.0 mg/dL (<2.0) 11/19/19 13:30 Ur Leukocyte Esterase Lg (Negative) 11/19/19 13:30 Urine WBC (Auto) > 182.0 /HPF (0.0-6.0) H 11/19/19 13:30 Urine RBC (Auto) 6.0 /HPF (0.0-6.0) 11/19/19 13:30 U Epithel Cells (Auto) < 1.0 /HPF (0-13.0) 11/19/19 13:30 Urine Bacteria (Auto) 1+ /HPF (Negative) 11/19/19 13:30 Urine WBC Clumps 3+ /HPF 11/19/19 13:30 Urine Eosinophils None seen (None Seen) 11/20/19 12:57 Urine Creatinine 86.0 mg/dL (0.1-20.0) H 11/20/19 12:57 Urine Creatinine < 4.2 mg/dL (0.1-20.0) 11/20/19 12:57 Protein/Creatinin Ratio 1.56 11/20/19 12:57 Urine Sodium 10 mmol/L 11/20/19 12:57 Urine Total Protein 134 mg/dL (5-11.8) H 11/20/19 12:57 Influenza A (Rapid) Negative (Negative) 11/19/19 Unknown Influenza B (Rapid) Negative (Negative) 11/19/19 Unknown Blood Type O POSITIVE 11/19/19 16:06 Antibody Screen Negative 11/19/19 16:06 Noonan/IV: Voiding Method Diaper IV Catheter Type [Right INT / Saline Lock Forearm] IV Catheter Type [Right Triple Lumen Cath Internal Jugular] IV Catheter Type [Right Hand] Peripheral IV Active Medications - Current Medications Current Medications: Generic Name Dose Route Start Last Admin Trade Name Freq PRN Reason Stop Dose Admin Aspirin 81 mg 11/20/19 10:00 11/25/19 09:29 Halfprin Ec PO 81 mg DAILY CESILIA Administration Atorvastatin Calcium 40 mg 11/19/19 22:00 11/25/19 22:02 Lipitor PO Not Given QHS CESILIA Benzonatate 100 mg 11/20/19 21:34 11/23/19 17:18 Tessalon Perles PO 100 mg Q6H PRN Administration Cough Clopidogrel Bisulfate 75 mg 11/20/19 10:00 11/25/19 09:29 Plavix PO 75 mg QDAY CESILIA Administration Dextrose 50 ml 11/22/19 14:38 D50w (25gm) Syringe IV Q30MIN PRN Hypoglycemia Protocol Heparin Sodium (Porcine) 5,000 unit 11/19/19 22:00 11/25/19 22:02 Heparin SUB-Q 5,000 unit Q12HR CESILIA Administration Dextrose/Sodium Chloride 1,000 mls @ 50 mls/hr 11/25/19 16:00 11/25/19 22:05 D5/0.45ns IV 50 mls/hr DIRECT CESILIA Administration Cefepime HCl 1 gm in 100 mls @ 200 mls/hr 11/25/19 17:00 11/26/19 04:52 Cefepime/Ns 1 Gm/100 Ml IV 200 mls/hr Q12H CESILIA Administration Protocol Insulin Human Lispro 0 unit 11/22/19 16:30 11/26/19 08:08 Humalog SUB-Q Not Given ACHS CESILIA Protocol Sodium Chloride 10 ml 11/19/19 22:00 11/25/19 22:03 Sodium Chloride Flush Syringe 10 Ml IV 10 ml BID CESILIA Administration Sodium Chloride 10 ml 11/19/19 15:25 Sodium Chloride Flush Syringe 10 Ml IV PRN PRN LINE FLUSH Nutrition/Malnutrition Assess - Dietary Evaluation Nutrition/Malnutrition Findings: Nutrition Notes Start: 11/21/19 15:21 Freq: Status: Active Protocol: Document 11/21/19 15:21 CHELSEA (Rec: 11/21/19 15:26 [facility] SR[facility]- [email or web address]) Nutrition Notes Need for Assessment generated from: scheduling administrator,MST Initial or Follow up Brief Note Current Diagnosis Acute Kidney Injury,Coronary Artery Disease,Diabetes,Sepsis ,Heart Failure,Stroke, Hyperlipidemia Other Pertinent Diagnosis Hypotension, UTI Current Diet Renal Labs/Tests BUN 42 Cr 2.1 Pertinent Medications Reviewed Height 5 ft 10 in Weight 82.1 kg [place] Body Weight (kg) 75.45 BMI 25.9 Weight Status Appropriate Subjective/Other Information Pt screened for malnutrition risk. Pt unsure of wt loss and reports good appetite at this time. He has consumed 88 % of the last two meals. Burn Absent Trauma Absent Current % PO Good (75-100%) Minimum of two criteria No physical signs of malnutrition Is patient on ventilator? No Is Patient Ambulatory and/or Out of Bed No REE-([facility]-confined to bed) 0823.204 Calculation Used for Recommendations [facility] Additional Notes Pro needs 0.8-1.2g/k-99g/ day Fluid needs per MD Nutrition Intervention Follow-Up By: 11/26/19 Additional Comments F/U: stable intakes
--- NOTE | 2019-11-26 16:51 | Progress Note ---
Assessment and Plan Assessment: Severe sepsis secondary to UTI CHRIS on CKD possibly prerenal azotemia vs. ischemic ATN from hypotension Ischemic cardiomyopathy Toxic encephalopathy Anemia in CKD Non-Anion Gap Metabolic acidosis Hx of Paroxysmal Atrial Fibrillation Hx of CAD/LA Plan: - Renal function reviewed, SCr level was 1.7 today, yesterday's SCr level was 1.7, stable - SCr in 2017 was 1.9, possibly progression of CKD vs. CHRIS - On D5 1/2NS@ 50 ml/hr - CXR negative for pulmonary edema, monitor volume status closely - Low urine sodium suggestive of prerenal etiology - Calculated protein to cr ratio 1.5 g, urine eosinophils negative - Renal US reviewed- medical renal disease - Renally dose medications - Needs strict intake and output - Noonan Catheter: No - Continue to monitor Subjective Date of service: 11/26/19 Principal diagnosis: Acute on CKD Interval history: Patient seen lying in bed. No family at bedside. Objective - Vital Signs Vital signs: Vital Signs - 12hr 11/26/19 11/26/19 08:17 10:00 Temperature 98.6 F Pulse Rate 82 Respiratory 20 Rate Blood Pressure 131/80 O2 Sat by Pulse 95 95 Oximetry - General Appearance General appearance: well-developed, appears stated age, fatigue EENT: ATNC, PERRL Neck: no JVD, supple Respiratory: Present: Decreased Breath Sounds Cardiology: S1S2 Gastrointestinal: normoactive bowel sounds Integumentary: warm and dry Neurologic: other (Awake and alert) Musculoskeletal: other (No edema) - Lab 11/26/19 04:45 11/26/19 04:45 Most recent lab results Calcium 8.7 mg/dL (8.4-10.2) 11/26/19 04:45 Phosphorus 2.50 mg/dL (2.5-4.5) 11/26/19 04:45 Urine Creatinine 86.0 mg/dL (0.1-20.0) H 11/20/19 12:57 Urine Creatinine < 4.2 mg/dL (0.1-20.0) 11/20/19 12:57 Urine Sodium 10 mmol/L 11/20/19 12:57 Urine Total Protein 134 mg/dL (5-11.8) H 11/20/19 12:57 Medications & Allergies - Medications Allergies/Adverse Reactions: Allergies No Known Allergies Allergy (Unverified 07/12/14 15:48) Home Medications: Home Medications Medication Instructions Recorded Confirmed Last Taken Type Aspirin [Adult Low Dose Aspirin EC] 81 mg PO DAILY #30 tablet. 07/22/16 11/19/19 Unknown Rx Gabapentin 300 mg PO BID #30 07/22/16 11/19/19 Unknown Rx Clopidogrel [Plavix] 75 mg PO QDAY tablet 12/27/16 11/19/19 Unknown Rx Rosuvastatin Calcium 20 mg PO DAILY 11/19/19 11/19/19 Unknown History Saxagliptin HCl [Onglyza] 5 mg PO DAILY 11/19/19 11/19/19 Unknown History carvediloL [Coreg] 3.125 mg PO BID 11/19/19 11/19/19 Unknown History Active Medications: Generic Name Dose Route Start Last Admin Trade Name Freq PRN Reason Stop Dose Admin Aspirin 81 mg 11/20/19 10:00 11/25/19 09:29 Halfprin Ec PO 81 mg DAILY CESILIA Administration Atorvastatin Calcium 40 mg 11/19/19 22:00 11/25/19 22:02 Lipitor PO Not Given QHS CESILIA Benzonatate 100 mg 11/20/19 21:34 11/23/19 17:18 Tessalon Perles PO 100 mg Q6H PRN Administration Cough Clopidogrel Bisulfate 75 mg 11/20/19 10:00 11/25/19 09:29 Plavix PO 75 mg QDAY CESILIA Administration Dextrose 50 ml 11/22/19 14:38 D50w (25gm) Syringe IV Q30MIN PRN Hypoglycemia Protocol Heparin Sodium (Porcine) 5,000 unit 11/19/19 22:00 11/25/19 22:02 Heparin SUB-Q 5,000 unit Q12HR CESILIA Administration Dextrose/Sodium Chloride 1,000 mls @ 50 mls/hr 11/25/19 16:00 11/25/19 22:05 D5/0.45ns IV 50 mls/hr DIRECT CESILIA Administration Cefepime HCl 1 gm in 100 mls @ 200 mls/hr 11/25/19 17:00 11/26/19 04:52 Cefepime/Ns 1 Gm/100 Ml IV 200 mls/hr Q12H CESILIA Administration Protocol Insulin Human Lispro 0 unit 11/22/19 16:30 11/26/19 08:08 Humalog SUB-Q Not Given ACHS CESILIA Protocol Sodium Chloride 10 ml 11/19/19 22:00 11/25/19 22:03 Sodium Chloride Flush Syringe 10 Ml IV 10 ml BID CESILIA Administration Sodium Chloride 10 ml 11/19/19 15:25 Sodium Chloride Flush Syringe 10 Ml IV PRN PRN LINE FLUSH
[2019-11-26] MEDS: D5W/0.45% NACL 1,000 ML IV SCH (17:44)
[2019-11-26] MEDS: ASPIRIN EC 81 MG TAB PO SCH (17:51)
[2019-11-26] MEDS: CLOPIDOGREL 75 MG TAB PO SCH (17:52)
[2019-11-27] MEDS: CEFEPIME/NS 1 GM/100 ML 1 GM/100 ML BAG IV SCH ×2 (04:08→16:32)
[2019-11-27 06:00] LABS: Basophils % (Auto) 0.4 % (0.0-1.8); Eosinophils # (Auto) 0.3 K/mm3 (0.0-0.4); Eosinophils % (Auto) 7.5 % (0.0-4.3); Hematocrit 27.5 % (35.5-45.6); Hemoglobin 8.8 gm/dl (11.8-15.2); Lymphocytes # (Auto) 0.6 K/mm3 (1.2-5.4); Lymphocytes % (Auto) 15.1 % (13.4-35.0); Mean Corpuscular HGB Conc 32 % (32-34); Mean Corpuscular Volume 87 fl (84-94); Monocytes # (Auto) 0.5 K/mm3 (0.0-0.8); Monocytes % (Auto) 14.2 % (0.0-7.3); Platelet Count 136 K/mm3 (140-440); Red Blood Count 3.16 M/mm3 (3.65-5.03); Red Cell Distribution Width 17.5 % (13.2-15.2)
[2019-11-27 06:24] LABS: Calcium 8.6 mg/dL (8.4-10.2)
[2019-11-27] MEDS: INSULIN LISPRO 100 UNIT/ML SUB-Q SCH ×3 (07:30→16:32)
[2019-11-27] MEDS: CLOPIDOGREL 75 MG TAB PO SCH (09:37)
[2019-11-27] MEDS: ASPIRIN EC 81 MG TAB PO SCH (09:37)
[2019-11-27] MEDS: HEPARIN 5,000 UNIT/1 ML VIAL SUB-Q SCH (09:37)
--- NOTE | 2019-11-27 09:37 | Progress Note ---
Assessment and Plan Sepsis thought secondary to UTI Hx of ID/CAD Hx of Ischemic cardiomyopathy there is no evidence of decompensation Echocardiogram this admission reports 4 chamber dilation, LVEF 15-20%. Hx of Atrial fibrillation, paroxysmal not on anticoagulation due to high bleeding risk in sinus rhythm Presence of DC PPM Chronic kidney disease Anemia Hx of COPD Recommend: Continue medical therapy for his paroxysmal atrial fibrillation, coronary artery disease and ischemic cardiomyopathy. Conservative cardiac management. Subjective Date of service: 11/27/19 Principal diagnosis: Acute on CKD Interval history: Patient is resting in bed comfortably. Objective Vital Signs Temp Pulse Resp BP Pulse Ox 11/27/19 07:53 98.3 F 70 18 118/78 100 11/27/19 02:22 97.9 F 66 20 113/73 95 11/26/19 22:00 18 11/26/19 19:48 98.6 F 70 20 111/71 97 11/26/19 13:17 83 98 11/26/19 10:00 95 - Physical Examination General: No Apparent Distress HEENT: Positive: PERRL Neck: Positive: trachea midline Cardiac: Positive: Other (paced) Lungs: Positive: Decreased Breath Sounds Neuro: Positive: Grossly Intact Extremities: Absent: edema - Labs and Meds CBC 11/27/19 Range/Units 05:32 WBC 3.7 L (4.5-11.0) K/mm3 RBC 3.16 L (3.65-5.03) M/mm3 Hgb 8.8 L (11.8-15.2) gm/dl Hct 27.5 L (35.5-45.6) % Plt Count 136 L (140-440) K/mm3 Lymph # 0.6 L (1.2-5.4) K/mm3 [place] # 0.5 (0.0-0.8) K/mm3 Eos # 0.3 (0.0-0.4) K/mm3 Baso # 0.0 (0.0-0.1) K/mm3 Comprehensive Metabolic Panel 11/27/19 Range/Units 05:32 Sodium 144 (137-145) mmol/L Potassium 3.8 (3.6-5.0) mmol/L Chloride 107.8 H (98-107) mmol/L Carbon Dioxide 22 (22-30) mmol/L BUN 17 (9-20) mg/dL Creatinine 1.7 H (0.8-1.5) mg/dL Glucose 119 H (75-100) mg/dL Calcium 8.6 (8.4-10.2) mg/dL
--- NOTE | 2019-11-27 10:36 | Progress Note ---
Assessment and Plan Severe sepsis secondary to UTI CHRIS on CKD possibly prerenal azotemia vs. ischemic ATN from hypotension Ischemic cardiomyopathy Toxic encephalopathy Anemia in CKD Non-Anion Gap Metabolic acidosis Hx of Paroxysmal Atrial Fibrillation Hx of CAD/NE Plan: - cont to have stable kidney function - Renal US reviewed- medical renal disease - Renally dose medications - Needs strict intake and output - Noonan Catheter: No - Continue to monitor will sign off. Subjective Date of service: 11/27/19 Principal diagnosis: Acute on CKD Objective - Vital Signs Vital signs: Vital Signs - 12hr 11/27/19 11/27/19 02:22 07:53 Temperature 97.9 F 98.3 F Pulse Rate 66 70 Respiratory 20 18 Rate Blood Pressure 113/73 118/78 O2 Sat by Pulse 95 100 Oximetry - Lab 11/27/19 05:32 11/27/19 05:32 Most recent lab results Calcium 8.6 mg/dL (8.4-10.2) 11/27/19 05:32 Phosphorus 2.50 mg/dL (2.5-4.5) 11/26/19 04:45 Urine Creatinine 86.0 mg/dL (0.1-20.0) H 11/20/19 12:57 Urine Creatinine < 4.2 mg/dL (0.1-20.0) 11/20/19 12:57 Urine Sodium 10 mmol/L 11/20/19 12:57 Urine Total Protein 134 mg/dL (5-11.8) H 11/20/19 12:57 Medications & Allergies - Medications Allergies/Adverse Reactions: Allergies No Known Allergies Allergy (Unverified 07/12/14 15:48) Home Medications: Home Medications Medication Instructions Recorded Confirmed Last Taken Type Aspirin [Adult Low Dose Aspirin EC] 81 mg PO DAILY #30 tablet. 07/22/16 11/19/19 Unknown Rx Gabapentin 300 mg PO BID #30 07/22/16 11/19/19 Unknown Rx Clopidogrel [Plavix] 75 mg PO QDAY tablet 12/27/16 11/19/19 Unknown Rx Rosuvastatin Calcium 20 mg PO DAILY 11/19/19 11/19/19 Unknown History Saxagliptin HCl [Onglyza] 5 mg PO DAILY 11/19/19 11/19/19 Unknown History carvediloL [Coreg] 3.125 mg PO BID 11/19/19 11/19/19 Unknown History Active Medications: Generic Name Dose Route Start Last Admin Trade Name Freq PRN Reason Stop Dose Admin Aspirin 81 mg 11/20/19 10:00 11/27/19 09:37 Halfprin Ec PO 81 mg DAILY CESILIA Administration Atorvastatin Calcium 40 mg 11/19/19 22:00 11/26/19 22:18 Lipitor PO 40 mg QHS CESILIA Administration Benzonatate 100 mg 11/20/19 21:34 11/23/19 17:18 Tessalon Perles PO 100 mg Q6H PRN Administration Cough Clopidogrel Bisulfate 75 mg 11/20/19 10:00 11/27/19 09:37 Plavix PO 75 mg QDAY CESILIA Administration Dextrose 50 ml 11/22/19 14:38 D50w (25gm) Syringe IV Q30MIN PRN Hypoglycemia Protocol Heparin Sodium (Porcine) 5,000 unit 11/19/19 22:00 11/27/19 09:37 Heparin SUB-Q 5,000 unit Q12HR CESILIA Administration Dextrose/Sodium Chloride 1,000 mls @ 50 mls/hr 11/25/19 16:00 11/26/19 17:44 D5/0.45ns IV 50 mls/hr DIRECT CESILIA Administration Cefepime HCl 1 gm in 100 mls @ 200 mls/hr 11/25/19 17:00 11/27/19 04:08 Cefepime/Ns 1 Gm/100 Ml IV 200 mls/hr Q12H CESILIA Administration Protocol Insulin Human Lispro 0 unit 11/22/19 16:30 11/27/19 07:30 Humalog SUB-Q Not Given ACHS CESILIA Protocol Sodium Chloride 10 ml 11/19/19 22:00 11/27/19 09:38 Sodium Chloride Flush Syringe 10 Ml IV 10 ml BID CESILIA Administration Sodium Chloride 10 ml 11/19/19 15:25 Sodium Chloride Flush Syringe 10 Ml IV PRN PRN LINE FLUSH
--- NOTE | 2019-11-27 16:24 | Progress Note ---
Assessment and Plan Sepsis due to UTI Severe sepsis: blood cultures X 2, drawn maintain mean arterial pressure above 65, IV pressor support as clinically maria eugenia cated. Now weaned off Levophed Consulted ID, following Acute kidney injury (CHRIS) with acute tubular necrosis (ATN) IV fluid resuscitation therapy, monitor urine output every shift, Nephrology consult placed in the emergency department. Improving Cr Hyponatremia Monitor Metabolic acidosis IV fluid resuscitation therapy, treat sepsis, monitor urine output every shift, serial lactic acid levels, Toxic encephalopathy, improved CT head, neuro check, aspiration precaution, fall precautions, Diabetes mellitus type 2 Sliding scale insulin diet, Accu-Chek, Chronic systolic CHF (congestive heart failure) Monitor fluid balance, cardiology following, Cardiology following supportive care, oxygen, nebulizer therapy, afterload reduction as tolerated, UTI (urinary tract infection) due to Serratia IV antibiotic therapy completed, DVT prophylaxis SCD to bilateral lower extremities while in bed, prophylactic heparin. Advance care planning Patient is full code, disease education conducted, 11/22 patient stable for discharge, orders put in put Nurse unable to contact family, called daughter multiple times 11/23 Nurse report patient holding food, so put on Pureed diet. Nurse told me daughter requested Coronavirus test but he does not meet criteria. Initial fever due to UTI had resolved. daughter requesting SNF placement. 11/24 Patient on pureed diet. speech Pathologist to evaluate. Daughter requested SNF placement 11/25 Rapid response called yesterday because patient choked on food. X ray showed bilat pneumonia,likely aspiration pneumonia. Re-start Cefepime . Keep NPO till speech pathology evaluation. Also family requested SNF placement but may not meet criteria as per sr. strategic sourcing manager. History Interval history: Presented with fever No more fever since 11/18 Choked on pureed diet yesterday 11/24 Hospitalist Physical - Physical exam Narrative exam: GEN: Not in acute distress, lying in bed, HEENT: Normocephalic, atraumatic, Neck: supple, No JVD Lungs: Clear , no crackles, heart;S1 and S2 reg, no murmurs, rubs or gallop Abd:soft, non tender, non distended, normal bowel sounds Ext: No edema, no clubbing, no cyanosis, Neuro:Awake, alert, no focal neurological signs Subjective Date of service: 11/27/19 Principal diagnosis: Acute on CKD Objective - Constitutional Vitals: Vital Signs - 12hr 11/27/19 11/27/19 07:53 10:00 Temperature 98.3 F Pulse Rate 70 Respiratory 18 Rate Blood Pressure 118/78 O2 Sat by Pulse 100 96 Oximetry - Labs CBC & Chem 7: 11/27/19 05:32 11/27/19 05:32 Labs: Abnormal lab results 11/26/19 11/26/19 11/27/19 Range/Units 18:47 22:19 05:32 WBC 3.7 L (4.5-11.0) K/mm3 RBC 3.16 L (3.65-5.03) M/mm3 Hgb 8.8 L (11.8-15.2) gm/dl Hct 27.5 L (35.5-45.6) % RDW 17.5 H (13.2-15.2) % Plt Count 136 L (140-440) K/mm3 [place] % (Auto) 14.2 H (0.0-7.3) % Eos % (Auto) 7.5 H (0.0-4.3) % Lymph # 0.6 L (1.2-5.4) K/mm3 Chloride (98-107) mmol/L Creatinine (0.8-1.5) mg/dL Glucose (75-100) mg/dL POC Glucose 119 H 123 H (70-105) 11/27/19 11/27/19 11/27/19 Range/Units 05:32 06:20 11:42 WBC (4.5-11.0) K/mm3 RBC (3.65-5.03) M/mm3 Hgb (11.8-15.2) gm/dl Hct (35.5-45.6) % RDW (13.2-15.2) % Plt Count (140-440) K/mm3 [place] % (Auto) (0.0-7.3) % Eos % (Auto) (0.0-4.3) % Lymph # (1.2-5.4) K/mm3 Chloride 107.8 H (98-107) mmol/L Creatinine 1.7 H (0.8-1.5) mg/dL Glucose 119 H (75-100) mg/dL POC Glucose 133 H 145 H (70-105) 11/27/19 Range/Units 15:09 WBC (4.5-11.0) K/mm3 RBC (3.65-5.03) M/mm3 Hgb (11.8-15.2) gm/dl Hct (35.5-45.6) % RDW (13.2-15.2) % Plt Count (140-440) K/mm3 [place] % (Auto) (0.0-7.3) % Eos % (Auto) (0.0-4.3) % Lymph # (1.2-5.4) K/mm3 Chloride (98-107) mmol/L Creatinine (0.8-1.5) mg/dL Glucose (75-100) mg/dL POC Glucose 209 H (70-105)
--- NOTE | 2019-11-27 16:43 | Discharge Summary ---
Providers - Providers Date of Admission: 11/19/19 15:25 Date of discharge: 11/27/19 Attending physician: CHICA CABALLERO 11/19/19 17:27 Consult to Physician [CONS] Routine Comment: Consulting Provider: MARCIE METZ Physician Instructions: Reason For Exam: chris 11/19/19 17:28 Consult to Cardiology [CONS] Routine Consulting Provider: VINITA MARCOS Reason For Exam: chf 11/20/19 07:49 Consult to Physician [CONS] Routine Comment: Consulting Provider: MI WESLEY Physician Instructions: Reason For Exam: Sepsis 11/24/19 12:19 Speech Therapy Evaluation and Treat [CONS] Routine Reason For Exam: swallow eval 11/24/19 12:21 Speech Therapy Evaluation and Treat [CONS] Routine Reason For Exam: patient is pocketing food 11/25/19 12:33 Speech Therapy Evaluation and Treat [CONS] Routine Reason For Exam: TROUBLE SWALLOWING/CHOKING WITH FOOD Primary care physician: IRIS LEBLANC MD Hospitalization Condition: Fair Hospital course: 79-year-old male with CVA, coronary artery disease, congestive heart failure, diabetes, CKD was brought into the emergency room with altered mental status, CHRIS and fever. Initial work-up was suggestive of UTI, patient was placed on IV antibiotic, ID was consulted, placed on IV fluid. His mental status improved, his renal function improved. He was stable for discharge but daughter insisted for covid19 test. Per ID patient was not a candidate for the test, daughter was explained and then she requested SNF placement. According to counseling case manager patient is not a SNF candidate either. When patient was waiting for discharge he had an event where he choked on food, x-ray showed bilateral pneumonia. He was then treated for aspiration pneumonia, speech therapy recommended pured diet. He improved clinically, patient was then discharged home in stable condition with home health. Discharge diagnosis: /Sepsis due to UTI blood cultures X 2, drawn - negative s/p Levophed, Consulted ID, treated with abx /UTI (urinary tract infection) due to Serratia IV antibiotic therapy completed, /Acute kidney injury (CHRIS) with acute tubular necrosis (ATN) on CKD stage3 Basement Cr 1.7-1.9 Improved with IV fluid resuscitation therapy, monitored urine output every shift, Nephrology consult placed, Improved Cr to baseline /Hyponatremia, improved with fluid. /Metabolic acidosis from sepsis treated sepsis, monitor urine output every shift, serial lactic acid levels, /Toxic encephalopathy, due to sepsis improved, negative CT head, aspiration precaution, /Diabetes mellitus type 2 managed with Sliding scale insulin diet, Accu-Chek, /Chronic systolic CHF (congestive heart failure), compensated Monitored fluid balance, cardiology following, Provided supportive care, oxygen, nebulizer therapy, afterload reduction as tolerated, /Aspiration PNA, treat with abx, pureed diet per speech therapy DVT prophylaxis SCD to bilateral lower extremities while in bed, prophylactic heparin. Advance care planning Patient is full code, disease education conducted, Hospitalist Physical GEN: Not in acute distress, lying in bed, HEENT: Normocephalic, atraumatic, Neck: supple, No JVD Lungs: Clear , no crackles, heart;S1 and S2 reg, no murmurs, rubs or gallop Abd:soft, non tender, non distended, normal bowel sounds Ext: No edema, no clubbing, no cyanosis, Neuro:Awake, alert, no focal neurological signs Disposition: DC-01 TO HOME OR SELFCARE Time spent for discharge: 34 minutes Core Measure Documentation - Palliative Care Palliative Care/ Comfort Measures: Not Applicable - Core Measures Any of the following diagnoses?: history only Exam - Constitutional Vitals: Temp Pulse Resp BP Pulse Ox 98.3 F 70 18 118/78 96 11/27/19 07:53 11/27/19 07:53 11/27/19 07:53 11/27/19 07:53 11/27/19 10:00 Plan Activity: fall precautions Weight Bearing Status: Non-Weight Bearing Diet: diabetic Plan of Treatment: 1.Follow up with PCP in 1 week. 2.Follow up with Dr. Metz in 1 week. Follow up with: IRIS LEBLANC MD [Primary Care Provider] - 3-5 Days
[2019-11-27 20:10] VITALS: BP 113/69
== END 2019-11-27 19:40 | disposition home or self-care (01) | DRG 871 ==
LOC: ED 11:07 → CC1 15:25 → 2B-ACE 11-20 13:27
PROVIDERS: ADMIT Internal Medicine; ATTEND Internal Medicine
PROC: 02HV33Z Insertion of Infusion Device into Superior Vena Cava, Percutaneous Approach (ICD-10-PCS; principal; 2019-11-19)
DX: A41.50 Gram-negative sepsis, unspecified (principal); N17.0 Acute kidney failure with tubular necrosis; G92 Toxic encephalopathy; I50.23 Acute on chronic systolic (congestive) heart failure; R65.21 Severe sepsis with septic shock; J69.0 Pneumonitis due to inhalation of food and vomit; E87.2 Acidosis; E87.1 Hypo-osmolality and hyponatremia; N30.00 Acute cystitis without hematuria; I13.0 Hypertensive heart and chronic kidney disease with heart failure and stage 1 through stage 4 chronic kidney disease, or unspecified chronic kidney disease; I42.9 Cardiomyopathy, unspecified; I69.354 Hemiplegia and hemiparesis following cerebral infarction affecting left non-dominant side; I25.10 Atherosclerotic heart disease of native coronary artery without angina pectoris; K21.9 Gastro-esophageal reflux disease without esophagitis; E78.00 Pure hypercholesterolemia, unspecified; I95.9 Hypotension, unspecified; E78.5 Hyperlipidemia, unspecified; N18.9 Chronic kidney disease, unspecified; E11.22 Type 2 diabetes mellitus with diabetic chronic kidney disease; D63.1 Anemia in chronic kidney disease; I48.0 Paroxysmal atrial fibrillation; I49.5 Sick sinus syndrome; J44.9 Chronic obstructive pulmonary disease, unspecified; I25.2 Old myocardial infarction; Z95.0 Presence of cardiac pacemaker; Z83.3 Family history of diabetes mellitus; Z82.49 Family history of ischemic heart disease and other diseases of the circulatory system; Z79.4 Long term (current) use of insulin; Z95.1 Presence of aortocoronary bypass graft
CPT/HCPCS: 36415; 70450; 71045; 76770; 80048; 80053; 81001; 82140; 82550; 82570; 82728; 82962; 83550; 84100; 84156; 84300; 84443; 84484; 85025; 85027; 86850; 86900; 86901; 87040; 87076; 87086; 87186; 87400; 89050; 93005; 93010; 93306; 94760; G0378; A9270-GY; J0692; J0696; J1644; J2405; J7030; J7040